=== PATIENT | male | born 1955 | race Caucasian/White ===

== ENCOUNTER 2024-03-15 09:00 | Outpatient (AMB) | payer OTHER, SELFPAY ==
--- NOTE | 2024-03-15 09:04 | A.OFFPC_ITS ---
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 Needs hernia looked at. 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 Psych: He is currently on trazodone 200 mg and hydroxyzine 50 mg. He does not feel like this is always effective. He does tolerate this well however. He is interested in trying something different. GI: He has Crohn's disease and is stable on Stelara. Follows with [facility]. Urology: Follows with urology for his elevated PSA and states everything was normal. He states that he would like to try Viagra for some erectile dysfunction. He has had issues with getting and maintaining an erection for the last couple years since his stoma surgery. He states he has not sure if it is mental or just age-related. [facility] Medical History (Updated 03/15/24 @ 10:01 by Melisa Zhang PA-C) Erectile dysfunction Incisional hernia of anterior abdominal wall without obstruction or gangrene Elevated PSA Crohn disease EMMANUEL on CPAP Insomnia Family History (Updated 03/15/24 @ 09:10 by Gerda Yadav CMA) Mother Alcoholism Father Alcoholism Sister Alcoholism Brother Alcoholism Other Substance use Social History (Updated 03/15/24 @ 09:09 by Gerda Yadav CMA) Housing: House Patient Tobacco Use Status: Former Tobacco user Cigarette Packs Per Day: 1 Years Smoked: 20, quit 45 years ago e-Cigarette/Vaping Use: Never Used Second Hand Smoke Exposure: No service: Yes Current occupational status: employed 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 1. Little interest or pleasure in doing things: not at all 2. Feeling down, depressed, or hopeless: not at all 3. Trouble falling or staying asleep, or sleeping too much: several days 4. Feeling tired or having little energy: several days 5. Poor appetite or overeating: not at all 6. Feeling bad about yourself - or that you are a failure or have let yourself or your family down: not at all 7. Trouble concentrating on things, such as reading the newspaper or watching television: not at all 8. Moving or speaking so slowly that other people could have noticed. Or the op posite - being so fidgety or restless that you have been moving around a lot more than usual: not at all 9. Thoughts that you would be better off or of hurting yourself in some way: not at all Total score: 2 Depression Screening Interpretation: Negative Depression Screening Done: Yes 49426 - PHQ-9 Billing: Yes Source: Developed by Drs. Bertin Farias, Rita Stewart, Mario Baca and colleagues, with an educational joao from [employer]. Thrive Questionnaire Date Thrive assessed: 03/15/24 I am a: Patient What is your living situation today?: I have a steady place to live Within the past 12 months, did the food you bought not last and you didn't have the money to get more?: Never true Within the past 12 months, did you worry whether your food would run out before you got money to buy more?: Never true Do you have trouble paying for medicines?: No Do you have trouble getting transportation to medical appointments?: No Do you have trouble paying your heating and electricity bill?: No Do you have trouble taking care of your child, family member or friend?: No Do you have trouble with day-to-day activities such as bathing, preparing meals, shopping, managing finances, etc.?: No Are you currently unemployed and looking for a job?: No Are you interested in more education?: No Please select the resources that you would like help with: None Currently or been in a relationship where the following occur: no concerns reported THRIVE Score: 0 AUDIT C Alcohol Use Questionnaire (AUDIT-C) 1. How often do you have a drink containing alcohol?: Never 3. How often do you have six or more drinks on one occasion?: Never Total Score: 0 MATA-7 AMB Questionnaire MATA-7 Date MATA - 7 assessed: 03/15/24 Feeling nervous, anxious, or on edge: 0 = Not at all Not being able to stop or control worryin = Not at all Worrying too much about different things: 0 = Not at all Trouble relaxin = Not at all Being so restless that it is hard to sit still: 0 = Not at all Becoming easily annoyed or irritable: 0 = Not at all Feeling afraid as if something awful might happen: 0 = Not at all Total MATA-7 score (0-4 normal; 5-9 mild; 10-14 moderate; 15-21 severe): 0 Source: Developed by Drs. Bertin Farias, Rita Stewart, Mario Baca and colleagues, with an educational joao from [employer]. MATA-7 Assessment Billing MATA-7 Assessment Tool: MATA-7 Assessment 26331 Physical exam (Primary Care) Vital Signs: Last Vital Signs Temp 98 F 03/15/24 09:15 Pulse 65 03/15/24 09:15 Resp 14 03/15/24 09:15 BP 124/60 03/15/24 09:15 Pulse Ox 98 03/15/24 09:15 Oxygen Delivery Method Room Air 03/15/24 09:15 BMI result Body Mass Index 29.8 Tobacco/Smoking Status: Tobacco use Status Tobacco use date assessed 03/15/24 03/15/24 09:12 Patient Tobacco Use Status Former Tobacco user 03/15/24 09:12 e-Cigarette/Vaping Use Never Used 03/15/24 09:12 PHQ-9: PHQ-9 Score PHQ-9: Total score 2 03/15/24 09:28 Depression Screening Interpretation: Negative Thrive Assessment: Date of Thrive Assessment Date Thrive assessed 03/15/24 03/15/24 09:28 Currently or been in a relationship where the following occur: no concerns reported Const Orientation/consciousness: patient oriented x3 HENMT Ears: hearing grossly normal bilaterally Neck Thyroid: Thyroid normal Lymphatic: no lymphadenopathy noted Resp Auscultation: clear to auscultation bilaterally Cardio Rate: regular rate Rhythm: regular rhythm Heart sounds: S1 normal heart sound present and S2 normal heart sound present GI Inspection: Yes normal to inspection Palpation (GI): Soft to palpation and Other GI palpation findings present (nontender, no cva tenderness) Auscultation: normoactive bowel sounds Rectal Exam - Male: Yes deferred Skin General skin exam: no rashes or lesions noted Neuro General: patient oriented x3, gait normal and no focal motor deficits Assessment and Plan Assessment & Plan (1) Insomnia: Code(s): G47.00 - Insomnia, unspecified Plan: We will DC the hydroxyzine and trazodone. We will start patient on Ambien. We spent extensive time discussing the risks and benefits and adverse effects of this medication. He is aware that this is a controlled substance and can be habit forming. He we will avoid any alcohol use while taking this medication or driving. (2) EMMANUEL on CPAP: Code(s): G47.33 - Obstructive sleep apnea (adult) (pediatric) (3) Crohn disease: Code(s): K50.90 - Crohn's disease, unspecified, without complications Plan: Continue with GI. (4) Elevated PSA: Code(s): R97.20 - Elevated prostate specific antigen [PSA] Plan: We will monitor in 6 months. (5) Incisional hernia of anterior abdominal wall without obstruction or gangrene: Code(s): K43.2 - Incisional hernia without obstruction or gangrene Plan: Referral to General surgery. (6) Erectile dysfunction: Code(s): N52.9 - Male erectile dysfunction, unspecified Qualifiers: Erectile dysfunction type: unspecified Qualified Code(s): N52.9 - Male erectile dysfunction, unspecified Plan: will try viagra however discuss that this could also be related to trazodone as it started around the same time of this medication. Orders: Orders Comprehensive [place]. Panel Fast Today G47.00 - Insomnia, unspecified, G47.33 - Obstructive sleep apnea (adult) (pediatric), K50.90 - Crohn's disease, unspecified, without complications, R97.20 - Elevated prostate specific antigen [PSA] Lipid Panel Today G47.00 - Insomnia, unspecified, G47.33 - Obstructive sleep apnea (adult) (pediatric), K50.90 - Crohn's disease, unspecified, without complications, R97.20 - Elevated prostate specific antigen [PSA] PSA, Ultra Sensitive Today G47.00 - Insomnia, unspecified, G47.33 - Obstructive sleep apnea (adult) (pediatric), K50.90 - Crohn's disease, unspecified, without complications, R06.09 - Other forms of dyspnea, R97.20 - Elevated prostate specific antigen [PSA] Complete Blood Count Auto Diff Today G47.00 - Insomnia, unspecified, G47.33 - Obstructive sleep apnea (adult) (pediatric), K50.90 - Crohn's disease, unspecified, without complications, R97.20 - Elevated prostate specific antigen [PSA] TSH reflex Free T4 Today G47.00 - Insomnia, unspecified, G47.33 - Obstructive sleep apnea (adult) (pediatric), K50.90 - Crohn's disease, unspecified, without complications, R97.20 - Elevated prostate specific antigen [PSA] Referrals General Surgery Referral K43.2 - Incisional hernia without obstruction or gangrene Medications: New zolpidem (Ambien) 5 mg PO BEDTIME 30 tabs 0RF 30 days sildenafil (Viagra) administer 30 minutes to 4 hours before activity 50 mg PO DAILY PRN 30 tabs 0RF sexual activity Coding Level of Care Code Est Pt Level 4 (23445) Complex EM visit Add On G2211 Diagnoses Insomnia G47.00 EMMANUEL on CPAP G47.33 Crohn disease K50.90 Elevated PSA R97.20 Incisional hernia of anterior abdominal wall without obstruction or gangrene K43.2 Erectile dysfunction, unspecified erectile dysfunction type N52.9 Erectile dysfunction type: unspecified Additional Codes MATA-7 Assessment Billing - MATA-7 Assessment Tool: MATA-7 Assessment 83639 ([id number])
[2024-03-15 09:15] VITALS: BP 124/60; PULSE 65; RESP 14; TEMP 36.6; O2SAT 98; BMI 29.8
== END 2024-03-15 09:58 | disposition home or self-care (01) ==
PROVIDERS: PCP Physician Assistant; Visit Provider Physician Assistant
DX: G47.00 Insomnia, unspecified (principal); G47.33 Obstructive sleep apnea (adult) (pediatric); K50.90 Crohn's disease, unspecified, without complications; R97.20 Elevated prostate specific antigen [PSA]; K43.2 Incisional hernia without obstruction or gangrene; N52.9 Male erectile dysfunction, unspecified
CPT/HCPCS: 99214

== ENCOUNTER 2024-04-12 08:34 | Outpatient (AMB) | payer OTHER, SELFPAY ==
--- NOTE | 2024-04-12 08:49 | A.OFFPC_ITS ---
Vital Signs 04/12/24 08:50 Height 5 ft 7.13 in Weight 189 lb BMI 29.5 BP 108/66 Blood Pressure Location Rt brachial Position Sitting Pulse 77 Pulse Source Pulse Oximeter Pulse Oximetry (%) 95 Oxygen Delivery Method Room Air Intake Visit Reasons: follow up medications Intake Note: Medication follow up Allergies No Known Allergies Allergy (Verified 04/12/24 08:49) Medication List - Last Reconciled 04/12/24 by Melisa Zhang PA-C sildenafil (Viagra) 50 mg PO DAILY PRN ustekinumab (Stelara) mg subcut Tobacco use date assessed: 03/15/24 Dental Screening Dental Screen Date: 03/15/24 HPI follow up medications HPI Details Patient is a 68-year-old male with a significant past medical history of Crohn's disease, obstructive sleep apnea, elevated PSA and insomnia presenting today for a follow up. Psych: He was recently started on Ambien after trying trazodone, amitriptyline and hydroxyzine without success. He trialed these medications for years. He has followed with sleep medicine who told him they do not prescribe. he has no adverse effects to the ambien but finds it minimally effective. He has tried 10 mg a few times which is somewhat better but not as much as he would like. He states he tries to go to bed for 9 and doesnt fall asleep until 10-10:30 and is up 2-4 AM. GI: He has Crohn's disease and is stable on Stelara. Follows with [facility]. Urology: Follows with urology for his elevated PSA and states everything was normal. He states that he would like to try Viagra for some erectile dysfunction. He has had issues with getting and maintaining an erection for the last couple years since his stoma surgery. He states he has not sure if it is mental or just age-related. Pulm: follows with sleep medicine in [place] for his emmanuel. wants to go somewhere different because he states they won't give him a new machine. [facility] Medical History (Updated 04/12/24 @ 09:17 by Melisa Zhang PA-C) Erectile dysfunction Incisional hernia of anterior abdominal wall without obstruction or gangrene Elevated PSA Crohn disease EMMANUEL on CPAP Insomnia Family History (Updated 03/15/24 @ 09:10 by Gerda Yadav CMA) Mother Alcoholism Father Alcoholism Sister Alcoholism Brother Alcoholism Other Substance use Social History (Updated 03/15/24 @ 09:09 by Gerda Yadav CMA) Housing: House Patient Tobacco Use Status: Former Tobacco user Cigarette Packs Per Day: 1 Years Smoked: 20, quit 45 years ago e-Cigarette/Vaping Use: Never Used Second Hand Smoke Exposure: No service: Yes Current occupational status: employed 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 Bertin Farias, Rita Stewart, Mario Baca and colleagues, with an educational joao from [employer]. Physical exam (Primary Care) Vital Signs: Last Vital Signs Pulse 77 04/12/24 08:50 BP 108/66 04/12/24 08:50 Pulse Ox 95 04/12/24 08:50 Oxygen Delivery Method Room Air 04/12/24 08:50 BMI result Body Mass Index 29.5 Tobacco/Smoking Status: Tobacco use Status Tobacco use date assessed 03/15/24 04/12/24 08:52 Patient Tobacco Use Status Former Tobacco user 04/12/24 08:52 e-Cigarette/Vaping Use Never Used 04/12/24 08:52 Thrive Assessment: Date of Thrive Assessment Date Thrive assessed 03/15/24 04/12/24 08:52 Const Orientation/consciousness: patient oriented x3 HENMT Ears: hearing grossly normal bilaterally Neck Thyroid: Thyroid normal Lymphatic: no lymphadenopathy noted Resp Auscultation: clear to auscultation bilaterally Cardio Rate: regular rate Rhythm: regular rhythm Heart sounds: S1 normal heart sound present and S2 normal heart sound present GI Inspection: Yes normal to inspection Palpation (GI): Soft to palpation and Other GI palpation findings present (nontender, no cva tenderness) Auscultation: normoactive bowel sounds Rectal Exam - Male: Yes deferred Skin General skin exam: no rashes or lesions noted Neuro General: patient oriented x3, gait normal and no focal motor deficits Assessment and Plan Assessment & Plan (1) Insomnia: Code(s): G47.00 - Insomnia, unspecified Qualifiers: Insomnia type: unspecified Qualified Code(s): G47.00 - Insomnia, unspecified Plan: He follows with good sleep hygiene. I will try Ambien 12.5 mg. We will follow up in 3-4 weeks. Sooner if needed. Risks of this medication reviewed at length. (2) Erectile dysfunction: Code(s): N52.9 - Male erectile dysfunction, unspecified Qualifiers: Erectile dysfunction type: unspecified Qualified Code(s): N52.9 - Male erectile dysfunction, unspecified Plan: Well-controlled with Viagra as needed (3) Elevated PSA: Code(s): R97.20 - Elevated prostate specific antigen [PSA] Plan: Reminded him to complete labs. Orders: Referrals Sleep Medicine Referral G47.00 - Insomnia, unspecified, G47.33 - Obstructive sleep apnea (adult) (pediatric) Medications: New zolpidem ER (Ambien CR) 12.5 mg PO .nightly 30 days 30 tabs 0RF Coding Level of Care Code Est Pt Level 4 (91301) Complex EM visit Add On G2211 Diagnoses Insomnia, unspecified type G47.00 Insomnia type: unspecified Erectile dysfunction, unspecified erectile dysfunction type N52.9 Erectile dysfunction type: unspecified Elevated PSA R97.20
[2024-04-12 08:50] VITALS: BP 108/66; PULSE 77; O2SAT 95; BMI 29.5
== END 2024-04-12 09:11 | disposition home or self-care (01) ==
PROVIDERS: PCP Physician Assistant; Visit Provider Physician Assistant
DX: G47.00 Insomnia, unspecified (principal); N52.9 Male erectile dysfunction, unspecified; R97.20 Elevated prostate specific antigen [PSA]
CPT/HCPCS: 99214

== ENCOUNTER 2024-05-11 10:13 | Outpatient (AMB) | payer OTHER, SELFPAY ==
--- NOTE | 2024-05-11 10:18 | MHC.PC.OV ---
Vital Signs 05/11/24 10:19 Height 5 ft 7.13 in Weight 189 lb 4 oz BMI 29.5 BP 128/64 Blood Pressure Location Lt brachial Position Sitting Respiration 14 Pulse 64 Pulse Source Pulse Oximeter Pulse Oximetry (%) 97 Oxygen Delivery Method Room Air Intake Visit Reasons: follow up medications Intake Note: Follow up Allergies No Known Allergies Allergy (Verified 05/11/24 10:18) Medication List - Last Reconciled 05/11/24 by Melisa Zhang PA-C sildenafil (Viagra) 50 mg PO DAILY PRN ustekinumab (Stelara) mg subcut zolpidem ER (Ambien CR) 12.5 mg PO .nightly 30 days Tobacco use date assessed: 03/15/24 Dental Screening Dental Screen Date: 03/15/24 HPI follow up medications HPI Details Patient is a 68-year-old male with a significant past medical history of Crohn's disease, obstructive sleep apnea, elevated PSA and insomnia presenting today for a follow up. Psych: He was recently started on Ambien after trying trazodone, amitriptyline and hydroxyzine without success. He trialed these medications for years. He has followed with sleep medicine who told him they do not prescribe. he has no adverse effects to the ambien and states this current dose is very effective he feels well with it. GI: He has Crohn's disease and is stable on Stelara. Follows with [facility]. Urology: Follows with urology for his elevated PSA and states everything was normal. He is on viagra for ED. Pulm: follows with sleep medicine in [place] for his emmanuel but wanted to switch to [facility] and is booked in September. [facility] Medical History (Updated 05/11/24 @ 10:29 by Melisa Zhang PA-C) Erectile dysfunction Incisional hernia of anterior abdominal wall without obstruction or gangrene Elevated PSA Crohn disease EMMANUEL on CPAP Insomnia Family History (Updated 03/15/24 @ 09:10 by Gerda Yadav CMA) Mother Alcoholism Father Alcoholism Sister Alcoholism Brother Alcoholism Other Substance use Social History (Updated 03/15/24 @ 09:09 by Gerda Yadav CMA) Housing: House Patient Tobacco Use Status: Former Tobacco user Cigarette Packs Per Day: 1 Years Smoked: 20, quit 45 years ago e-Cigarette/Vaping Use: Never Used Second Hand Smoke Exposure: No service: Yes Current occupational status: employed 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 Bertin Farias, Rita Stewart, Mario Baca and colleagues, with an educational joao from [employer]. Physical exam (Primary Care) Vital Signs: Last Vital Signs Pulse 64 05/11/24 10:19 Resp 14 05/11/24 10:19 BP 128/64 05/11/24 10:19 Pulse Ox 97 05/11/24 10:19 Oxygen Delivery Method Room Air 05/11/24 10:19 BMI result Body Mass Index 29.5 Tobacco/Smoking Status: Tobacco use Status Tobacco use date assessed 03/15/24 05/11/24 10:21 Patient Tobacco Use Status Former Tobacco user 05/11/24 10:21 e-Cigarette/Vaping Use Never Used 05/11/24 10:21 Thrive Assessment: Date of Thrive Assessment Date Thrive assessed 03/15/24 05/11/24 10:21 Const Orientation/consciousness: patient oriented x3 HENMT Ears: hearing grossly normal bilaterally Neck Thyroid: Thyroid normal Lymphatic: no lymphadenopathy noted Resp Auscultation: clear to auscultation bilaterally Cardio Rate: regular rate Rhythm: regular rhythm Heart sounds: S1 normal heart sound present and S2 normal heart sound present GI Inspection: Yes normal to inspection Palpation (GI): Soft to palpation and Other GI palpation findings present (nontender, no cva tenderness) Auscultation: normoactive bowel sounds Rectal Exam - Male: Yes deferred Skin Other: There are 2, small 3 mm x 3 mm, slightly raised, erythematous and flaky lesions noted on the scalp. Neuro General: patient oriented x3, gait normal and no focal motor deficits Assessment and Plan Assessment & Plan (1) Insomnia: Code(s): G47.00 - Insomnia, unspecified Qualifiers: Insomnia type: unspecified Qualified Code(s): G47.00 - Insomnia, unspecified Plan: CSC signed today. advised 4 month follow up. continue ambien. (2) Skin lesion of scalp: Code(s): L98.9 - Disorder of the skin and subcutaneous tissue, unspecified Plan: referral to [facility] for skin check and eval Orders: Referrals Dermatology Referral L98.9 - Disorder of the skin and subcutaneous tissue, unspecified Coding Level of Care Code Est Pt Level 4 (31200) Diagnoses Insomnia, unspecified type G47.00 Insomnia type: unspecified Skin lesion of scalp L98.9
[2024-05-11 10:19] VITALS: BP 128/64; PULSE 64; RESP 14; O2SAT 97; BMI 29.5
== END 2024-05-11 10:43 | disposition home or self-care (01) ==
PROVIDERS: PCP Physician Assistant; Visit Provider Physician Assistant
DX: G47.00 Insomnia, unspecified (principal); L98.9 Disorder of the skin and subcutaneous tissue, unspecified
CPT/HCPCS: 99214

== ENCOUNTER 2024-06-15 10:43 | Outpatient (AMB) | payer OTHER, SELFPAY ==
--- NOTE | 2024-06-15 10:49 | MHC.PC.OV ---
Vital Signs 06/15/24 10:52 Weight 193 lb 8 oz BP 120/62 Blood Pressure Location Lt brachial Position Sitting Respiration 14 Pulse 66 Pulse Source Pulse Oximeter Pulse Oximetry (%) 97 Oxygen Delivery Method Room Air Intake Visit Reasons: Ringing in ears Intake Note: Ringing in the ears couple months Branch Controller Required: No Allergies No Known Allergies Allergy (Verified 06/15/24 10:50) Tobacco use date assessed: 03/15/24 Dental Screening Dental Screen Date: 03/15/24 HPI Ringing in ears HPI Details Patient is a 68-year-old male who presents today with complaints of ringing in his ears. His symptoms started a few years ago and have gradually worsened. No decreased hearing or pain. It does not appear to be pulsatile. He denies any headache, vision changes or congestion. He would like to consult with ENT. Crohn's is currently stable and well controlled with Stelara. Doing well with the Ambien. Getting about 7 hours of sleep at night. No adverse effects. [facility] Medical History (Updated 06/15/24 @ 11:36 by Melisa Zhang PA-C) Erectile dysfunction Incisional hernia of anterior abdominal wall without obstruction or gangrene Elevated PSA Crohn disease EMMANUEL on CPAP Insomnia Family History (Updated 03/15/24 @ 09:10 by Gerda Yadav CMA) Mother Alcoholism Father Alcoholism Sister Alcoholism Brother Alcoholism Other Substance use Social History (Updated 03/15/24 @ 09:09 by Gerda Yadav CMA) Housing: House Patient Tobacco Use Status: Former Tobacco user Cigarette Packs Per Day: 1 Years Smoked: 20, quit 45 years ago e-Cigarette/Vaping Use: Never Used Second Hand Smoke Exposure: No service: Yes Current occupational status: employed 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 1. Little interest or pleasure in doing things: not at all 2. Feeling down, depressed, or hopeless: not at all 3. Trouble falling or staying asleep, or sleeping too much: not at all 4. Feeling tired or having little energy: several days 5. Poor appetite or overeating: not at all 6. Feeling bad about yourself - or that you are a failure or have let yourself or your family down: not at all 7. Trouble concentrating on things, such as reading the newspaper or watching television: not at all 8. Moving or speaking so slowly that other people could have noticed. Or the opposite - being so fidgety or restless that you have been moving around a lot more than usual: not at all 9. Thoughts that you would be better off or of hurting yourself in some way: not at all Total score: 1 Source: Developed by Drs. Bertin Farias, Rita Stewart, Mario Baca and colleagues, with an educational joao from [employer]. Thrive Questionnaire Date Thrive assessed: 03/15/24 I am a: Patient What is your living situation today?: I have a steady place to live Within the past 12 months, did the food you bought not last and you didn't have the money to get more?: I choose not to answer this question Within the past 12 months, did you worry whether your food would run out before you got money to buy more?: I choose not to answer this question Do you have trouble paying for medicines?: I choose not to answer this question Do you have trouble getting transportation to medical appointments?: I choose not to answer this question Do you have trouble paying your heating and electricity bill?: I choose not to answer this question Do you have trouble taking care of your child, family member or friend?: I choose not to answer this question Do you have trouble with day-to-day activities such as bathing, preparing meals, shopping, managing finances, etc.?: I choose not to answer this question Are you currently unemployed and looking for a job?: No Are you interested in more education?: No Please select the resources that you would like help with: None Currently or been in a relationship where the following occur: I choose not to answer THRIVE Score: 0 AUDIT C Alcohol Use Questionnaire (AUDIT-C) 1. How often do you have a drink containing alcohol?: Never Total Score: 0 MATA-7 AMB Questionnaire MATA-7 Date MATA - 7 assessed: 03/15/24 Feeling nervous, anxious, or on edge: 0 = Not at all Not being able to stop or control worryin = Not at all Worrying too much about different things: 0 = Not at all Trouble relaxin = Not at all Being so restless that it is hard to sit still: 0 = Not at all Becoming easily annoyed or irritable: 0 = Not at all Feeling afraid as if something awful might happen: 0 = Not at all Total MATA-7 score (0-4 normal; 5-9 mild; 10-14 moderate; 15-21 severe): 0 Source: Developed by Drs. Bertin Farias, Rita Stewart, Mario Baca and colleagues, with an educational joao from [employer]. Physical exam (Primary Care) Vital Signs: Last Vital Signs Pulse 66 06/15/24 10:52 Resp 14 06/15/24 10:52 BP 120/62 06/15/24 10:52 Pulse Ox 97 06/15/24 10:52 Oxygen Delivery Method Room Air 06/15/24 10:52 Tobacco/Smoking Status: Tobacco use Status Tobacco use date assessed 03/15/24 06/15/24 10:55 Patient Tobacco Use Status Former Tobacco user 06/15/24 10:55 e-Cigarette/Vaping Use Never Used 06/15/24 10:55 PHQ-9: PHQ-9 Score PHQ-9: Total score 1 06/15/24 11:32 Thrive Assessment: Date of Thrive Assessment Date Thrive assessed 03/15/24 06/15/24 10:55 Currently or been in a relationship where the following occur: I choose not to answer Const Orientation/consciousness: patient oriented x3 HENMT Ears: hearing grossly normal bilaterally and TM's normal bilaterally General nose exam: Normal nasal mucous membranes and turbinates present Face and sinus: Yes sinuses nontender Neck Thyroid: Thyroid normal Lymphatic: no lymphadenopathy noted Resp Auscultation: clear to auscultation bilaterally Cardio Rate: regular rate Rhythm: regular rhythm Heart sounds: S1 normal heart sound present and S2 normal heart sound present GI Inspection: Yes normal to inspection Palpation (GI): Soft to palpation and Other GI palpation findings present (nontender, no cva tenderness) Auscultation: normoactive bowel sounds Rectal Exam - Male: Yes deferred Skin General skin exam: no rashes or lesions noted Neuro General: patient oriented x3, gait normal and no focal motor deficits Assessment and Plan Assessment & Plan (1) Bilateral tinnitus: Code(s): H93.13 - Tinnitus, bilateral Plan: Referral to ENT placed. Orders: Referrals Ear/Nose/Throat Referral H93.13 - Tinnitus, bilateral Coding Level of Care Code Est Pt Level 3 (18034) Diagnoses Bilateral tinnitus H93.13
[2024-06-15 10:52] VITALS: BP 120/62; PULSE 66; RESP 14; O2SAT 97
== END 2024-06-15 13:03 | disposition home or self-care (01) ==
PROVIDERS: PCP Physician Assistant; Visit Provider Physician Assistant
DX: H93.13 Tinnitus, bilateral (principal)

== ENCOUNTER → 2024-06-15 10:43 | Outpatient (BNVA) | payer OTHER, SELFPAY | PROVIDERS: PCP Physician Assistant; Visit Provider Physician Assistant | DX: H93.13 Tinnitus, bilateral (principal) | CPT/HCPCS: 96127 ==

== ENCOUNTER 2024-09-14 08:13 | Outpatient (AMB) | payer OTHER, SELFPAY ==
--- NOTE | 2024-09-14 08:18 | MHC.PC.OV ---
Vital Signs 09/14/24 08:29 BP 116/64 Blood Pressure Location Lt brachial Position Sitting Pulse 70 Pulse Source Pulse Oximeter Pulse Oximetry (%) 99 Oxygen Delivery Method Room Air Intake Visit Reasons: insomnia Intake Note: Insomnia, difficulty breathing, chest pain, shoulder pain since last week of June when he was told he had Pneumonia. Had xray at [facility]. Saw a provider at [facility] 3 weeks later and they prescribed a Zpack and prednisone. No follow up chest xray. Film Numberer Required: No Allergies No Known Allergies Allergy (Verified 09/14/24 08:18) Medication List - Last Reconciled 09/14/24 by Melisa Zhang PA-C hydroxyzine HCl 50 mg PO BEDTIME ustekinumab (Stelara) mg subcut zolpidem ER (Ambien CR) 12.5 mg PO .nightly 30 days Tobacco use date assessed: 03/15/24 Dental Screening Dental Screen Date: 03/15/24 HPI insomnia HPI Details Patient is a 68-year-old male with a significant past medical history of Crohn's disease and insomnia who presents today with complaints of feeling short of breath and having chest pain. He states his symptoms started at the end of June. He went to an urgent care and [place] and had a chest x-ray which she was told that the left side of the lungs were a little hazy and possibly consistent with pneumonia. He was put on amoxicillin which she did not tolerate. He states he was only able to take 1 day and could no longer tolerate it. He then went to [facility] to be evaluated and states that he had a physical exam and was placed on prednisone, which helped his GI symptoms, and azithromycin. He did feel as if he got better from the Z-Valeriano and prednisone but maybe not fully better. He states that when he exerts himself he feels short of breath. He would normally be able to carry in a couple of bags of pellets for his stove but has to do 1 bag at a time and take frequent breaks. He does not really feels sick but he is concerned because of the shortness a breath and at times he will get a chest pressure that feels like something sitting on the center of his chest. He states sometimes also when he takes a deep breath he will feel chest pain. It is not all the time but it does happen. He last experienced chest pain yesterday. He does have chest pain with inspiration today on exam but states it feels different than the chest pressure that will last for a few minutes and occur multiple times. He has never had a cardiac workup. No fevers. He has felt a little chilled yesterday but feels better today. No sinus pain or pressure. No cough or phlegm. He has noted intermittent wheezing but no wheezing for the last few days. No history of asthma. No leg pain or swelling. No recent travel. Insomnia currently being managed with zolpidem. [facility] Medical History (Updated 09/14/24 @ 10:41 by Melisa Zhang PA-C) Erectile dysfunction Incisional hernia of anterior abdominal wall without obstruction or gangrene Elevated PSA Crohn disease EMMANUEL on CPAP Insomnia Family History (Updated 03/15/24 @ 09:10 by Gerda Yadav CMA) Mother Alcoholism Father Alcoholism Sister Alcoholism Brother Alcoholism Other Substance use Social History (Updated 03/15/24 @ 09:09 by Gerda Yadav CMA) Housing: House Patient Tobacco Use Status: Former Tobacco user Cigarette Packs Per Day: 1 Years Smoked: 20, quit 45 years ago e-Cigarette/Vaping Use: Never Used Second Hand Smoke Exposure: No service: Yes Current occupational status: employed 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 Current occupational exposures/hazards: No Cognitive needs: No Hearing needs: No Vision needs: No Questionnaire Thrive Questionnaire Date Thrive assessed: 06/15/24 I am a: Patient What is your living situation today?: I have a steady place to live Within the past 12 months, did the food you bought not last and you didn't have the money to get more?: I choose not to answer this question Within the past 12 months, did you worry whether your food would run out before you got money to buy more?: I choose not to answer this question Do you have trouble paying for medicines?: I choose not to answer this question Do you have trouble getting transportation to medical appointments?: I choose not to answer this question Do you have trouble paying your heating and electricity bill?: I choose not to answer this question Do you have trouble taking care of your child, family member or friend?: I choose not to answer this question Do you have trouble with day-to-day activities such as bathing, preparing meals, shopping, managing finances, etc.?: I choose not to answer this question Are you currently unemployed and looking for a job?: No Are you interested in more education?: No Please select the resources that you would like help with: None Currently or been in a relationship where the following occur: I choose not to answer THRIVE Score: 0 MATA-7 AMB Questionnaire MATA-7 Date MATA - 7 assessed: 03/15/24 Source: Developed by Drs. Bertin Farias, Rita Stewart, Mario Baca and colleagues, with an educational joao from [employer]. Physical exam (Primary Care) Vital Signs: Last Vital Signs Pulse 70 09/14/24 08:29 BP 116/64 09/14/24 08:29 Pulse Ox 99 09/14/24 08:29 Oxygen Delivery Method Room Air 09/14/24 08:29 Tobacco/Smoking Status: Tobacco use Status Tobacco use date assessed 03/15/24 09/14/24 08:19 Patient Tobacco Use Status Former Tobacco user 09/14/24 08:19 e-Cigarette/Vaping Use Never Used 09/14/24 08:19 Thrive Assessment: Date of Thrive Assessment Date Thrive assessed 06/15/24 09/14/24 08:19 Currently or been in a relationship where the following occur: I choose not to answer Const Orientation/consciousness: patient oriented x3 HENMT Ears: hearing grossly normal bilaterally Neck Thyroid: Thyroid normal Lymphatic: no lymphadenopathy noted Resp Auscultation: clear to auscultation bilaterally Cardio Rate: regular rate Rhythm: regular rhythm Heart sounds: S1 normal heart sound present and S2 normal heart sound present GI Inspection: Yes normal to inspection Palpation (GI): Soft to palpation and Other GI palpation findings present (nontender, no cva tenderness) Auscultation: normoactive bowel sounds Skin General skin exam: no rashes or lesions noted Neuro General: patient oriented x3, gait normal and no focal motor deficits Extrem General: Yes normal to inspection and Yes no clubbing, cyanosis or edema Office Procedures EKG Details: Normal sinus rhythm at a rate of 66 beats per minute with nonspecific STT wave abnormalities. No prior study to compare. EKG interpreted by myself and Dr. Valera. [id number], Complete Coding Level of Care Code Est Pt Level 4 (43954) Complex EM visit Add On G2211 Diagnoses Chest pain, unspecified type R07.9 Chest pain type: unspecified TAVERAS (dyspnea on exertion) R06.09 CPT Codes EKG - CPT: 45544-[id number], Complete ([id number]) Assessment & Plan Assessment & Plan (1) Chest pain: Code(s): R07.9 - Chest pain, unspecified Category: Medical Qualifiers: Chest pain type: unspecified Qualified Code(s): R07.9 - Chest pain, unspecified Plan: Chest x-ray today. Ordered as stat although lungs sound clear on exam. We will follow up pending test results. Labs including CBC, CMP, BNP, and D-dimer ordered. Ambulatory O2 sat is 96% on room air without tachycardia. Stress test and echo ordered. (2) TAVERAS (dyspnea on exertion): Code(s): R06.09 - Other forms of dyspnea Category: Medical Plan: As above. We will follow up pending test results. We discussed signs and symptoms that would require emergent medical treatment. Patient understands and agrees with this plan. Orders: Orders AMB EKG-In Office Today R06.09 - Other forms of dyspnea XR chest 2V Today R06.09 - Other forms of dyspnea, R07.9 - Chest pain, unspecified CA echo transthoracic complete Today R06.09 - Other forms of dyspnea, R07.9 - Chest pain, unspecified CA stress test Today R06.09 - Other forms of dyspnea, R07.9 - Chest pain, unspecified B Type Natriuretic Peptide Today R06.09 - Other forms of dyspnea, R07.9 - Chest pain, unspecified Comprehensive Met. Panel Today R06.09 - Other forms of dyspnea, R07.9 - Chest pain, unspecified D Dimer High Sensitivity Today R06.09 - Other forms of dyspnea, R07.9 - Chest pain, unspecified
[2024-09-14 08:29] VITALS: BP 116/64; PULSE 70; O2SAT 99
== END 2024-09-14 11:18 | disposition home or self-care (01) ==
PROVIDERS: PCP Physician Assistant; Visit Provider Physician Assistant
DX: R07.9 Chest pain, unspecified (principal); R06.09 Other forms of dyspnea

== ENCOUNTER → 2024-09-14 08:13 | Outpatient (BNVA) | payer OTHER, SELFPAY | PROVIDERS: PCP Physician Assistant; Visit Provider Physician Assistant | DX: R07.9 Chest pain, unspecified (principal); R06.09 Other forms of dyspnea | CPT/HCPCS: 93005 ==

== ENCOUNTER 2024-09-18 09:50 | Outpatient (REF) | payer OTHER, SELFPAY ==
[2024-09-18 11:51] LABS: D Dimer High Sensitivity < 150 NG/ML
[2024-09-18 11:54] LABS: B Type Natriuretic Peptide 73 pg/mL (<100)
[2024-09-18 12:02] LABS: Alanine Aminotransferase 45 U/L (0-40); Albumin Level 4.2 g/dL (3.5-5.0); Alkaline Phosphatase 73 U/L (39-117); Anion Gap 8 (12-20); Aspartate Amino Transferase 24 U/L (5-37); Bilirubin Total 0.6 mg/dL (0.0-1.0); Blood Urea Nitrogen 12 mg/dL (9-16); Carbon Dioxide 29 mmol/L (22-29); Chloride 108 mmol/L (96-108); Estimated Glomerular Filt Rate > 60; Glucose Random 219 mg/dL (60-115); Sodium 141 mmol/L (135-145); Total Protein 6.9 g/dL (6.5-8.0)
== END 2024-09-18 09:51 | disposition home or self-care (01) ==
LOC: HO.WFDLDS 09:50
PROVIDERS: Visit Provider Physician Assistant
DX: R07.9 Chest pain, unspecified (principal); R06.09 Other forms of dyspnea
CPT/HCPCS: 36415; 80053; 83880; 85379

== ENCOUNTER → 2024-10-06 07:43 | Outpatient (REF) | payer OTHER, SELFPAY ==
--- NOTE | 2024-10-06 07:55 | CA_ITS ---
Transthoracic Echocardiogram Patient (Last, First, Middle): Suraj Loomis, Gender: Male Date of : 1955 Age: 68 Procedure Date: 10/06/2024 Procedure Type: Transthoracic Echocardiogram Location: OP Height: 172.72 cm Weight: 86.18 kg BSA: 2.00 m2 Heart Rate: 62 bpm BP: 116 / 64 mmHg Manager Safe: SB Referring MD: Melisa Zhang PA-C Symptoms: R07.9 - Chest pain, unspecified Study Quality: Adequate ECG Rhythm: Sinus Conclusions: - The left ventricular systolic function is normal. The calculated ejection fraction is 61% by biplane method. - No obvious valvular pathology seen on this study. Findings Left Ventricle Normal left ventricular cavity size. There is normal left ventricular wall thickness. The left ventricular systolic function is normal. The calculated ejection fraction is 61% by biplane method. There is no evidence of regional wall motion abnormalities. Diastolic function is normal for age. Right Ventricle Normal right ventricular cavity size. There is low normal right ventricular systolic function. Atria Both atria are normal in size. Aortic Valve There is a normal trileaflet aortic valve. There is no aortic valve stenosis. There is no aortic valve regurgitation. Mitral Valve The mitral valve appears normal. There is no mitral valve regurgitation. There is no mitral valve stenosis. Pulmonic Valve The pulmonic valve is likely normal. Tricuspid Valve There is mild tricuspid valve regurgitation. There is no evidence of pulmonary hypertension. Great Vessels The asc aorta and aortic arch are normal in size. Venous The inferior vena cava was not well visualized. Pericardium/Pleural There is no evidence of pericardial effusion. Prior Study Comparison No prior study available for comparison. Recommendations, Care & Conclusions No obvious valvular pathology seen on this study. Measurements 2D Linear Measurements IVSd: 0.99 0.6-0.9/0.6-1.0 cm LVIDd: 4.55 3.9-5.3/4.2-5.9 cm LVIDd Index: 2.28 2.4-3.2/2.2-3.1 cm/m2 LVIDs: 2.78 2.0-3.6 cm LA Diam: 4.00 2.7-3.8/3.0-4.0 cm LAIDs Index: 2.00 1.5-2.3 cm/m2 LVOT Diam: 2.20 3.0+(-)1.3 cm 2D Systolic Function EF 4C: 58.20 >55% EF 2C: 62.90 >55% EF BiP: 61.30 >55% Mitral Valve MV Pk E: 0.77 MV PK A: 0.65 MV Decel Time: 244.00 E/A: 1.20 E'Lateral: 7.83 E'Medial: 7.51 E/E' Med: 10.20 E/E' Lat: 9.80 PHT: 71.00 MVA PHT: 3.10 Decel [place]: 3.15 Aortic Valve AoV Pk Sam: 1.08 AoV Pk Grad: 5.00 MATT: 3.35 LVOT LVOT Pk Sam: 0.99 LVOT Mn Sam: 0.67 LVOT VTI: 0.22 LVOT Pk Grad: 4.00 LVOT Mn Grad: 2.00 LVOT Diam: 2.20 LVOT Area: 3.80 Diastolic Function MV Pk E: 0.77 MV Pk A: 0.65 E/A: 1.20 E'Medial: 7.51 E/E' Med: 10.20 E' Laterial: 7.83 E/E' Lat: 9.80 Right Ventricle TAPSE (mm): 18.90 TVS' Sam: 10.10 Tricuspid Valve TR Pk Sma: 2.31 TR Pk Grad: 21.00 RA Press: 3.00 RVSP: 24.00 Great Vessels Aorta Sinus of Valsalva: 3.60 2.0-3.5 cm Ao Asc: 3.00 2.1-3.4 cm Ao Arch: 2.90 Pulmonary Veins Pulm Vein S/D 1.10 Pulmonary Valve PV Pk Sam: 0.79 Peak PV Grad: 3.00 Updated in Other Vendor System with Status of Final Papa Pimentel MD electronically signed on 10/07/2024 2:23:56 PM with status of Final
--- NOTE | 2024-10-06 07:55 | CA_ITS ---
Acquisition Time: 2024-10-06 08:58:27 Total Exercise Time: 00:06:19 Test Indications: cp, dyspnea Medications: Protocol: ABDI Max HR: 137 BPM 89% of Pred: 153 BPM Max BP: 150/80 mmHG Max Work Load: 7.4 METS Exercise Stress Test with exercise 6 mins 19 secs of Abdi Protocol, achieving 89% MPHR, with reports of moderate SOB, no chest discomfort, with frequent isolated PVCs, with normotensive response to exercise. Without EKG changes meeting criteria for ischemia. In recovery, breathing returned to baseline. Test reviewed with Dr. Pimentel. Referred By: Melisa Zhang Electronically Signed By: Yo Yao
== END ==
LOC: HO.CARD 07:43
PROVIDERS: PCP Physician Assistant; Visit Provider Physician Assistant
DX: R07.9 Chest pain, unspecified (principal); R06.09 Other forms of dyspnea
CPT/HCPCS: 93017; 93306

== ENCOUNTER → 2024-10-06 07:55 | Outpatient (BNV) | payer OTHER, SELFPAY | PROVIDERS: PCP Physician Assistant | DX: R06.02 Shortness of breath (principal); I49.3 Ventricular premature depolarization | CPT/HCPCS: 93016; 93018; 93320; 93325; 93350 ==

== ENCOUNTER 2024-10-24 07:46 | Outpatient (AMB) | payer OTHER, SELFPAY ==
--- OUTSIDE RECORDS SUMMARY | 2024-10-24 07:48 | XMS_ITS | Clinical Summary ---
Author Organization [facility] Address [address] [place] [id number] Care Team Providers Care Estate Attorney Name Role Phone Pcp, No Primary Care Provider Unavailabl e Allergies No known active allergies Medications Medication Sig Dispensed Refills Start Date End Date Status acetaminophen (TYLENOL) 325 MG tablet TAKE 3 TABLETS BY MOUTH EVERY 6 HOURS 11/29/2020 Active Readi-Cat 2 2 % suspension DRINK 1 BOTTLE 6 HOURS BEFORE PROCEDURE. DRINK SECOND BOTTLE 90 MINUTES BEFORE PROCEDURE *NOT CVD* 10/21/2020 Active enoxaparin (LOVENOX) 40 MG/0.4ML injection INJECT 0.4 ML SUBCUTANEOUS INJECTION DAILY,X28 DAYS 11/29/2020 Active gabapentin (NEURONTIN) 300 MG capsule TAKE 2 CAPSULE BY MOUTH 3 TIMES A DAY 11/29/2020 Active glipiZIDE (GLUCOTROL) 5 MG tablet TAKE 1 TABLET BY MOUTH 2 TIMES A DAY,X30 DAYS WITH BREAKFAST AND DINNER. 12/01/2020 Active Social History Tobacco Use Types Packs/Day Years Used Date Smoking Tobacco: Never Assessed Sex and Gender Information Value Date Recorded Sex Assigned at Not on file Gender Identity Not on file Sexual Orientation Not on file Last Filed Vital Signs Vital Sign Reading Time Taken Comments Blood Pressure 125/84 12/17/2020 10:27 AM EDT Pulse 106 12/17/2020 10:27 AM EDT Temperature 36.6 ??C (97.9 ??F) 12/17/2020 10:27 AM E DT Respiratory Rate - - Oxygen Saturation 97% 12/17/2020 10:27 AM EDT Inhaled Oxygen Concentration - - Weight 76.2 kg (168 lb) 12/17/2020 10:27 AM EDT Height 175.3 cm (5' 9 ) 12/17/2020 10:27 AM EDT Body Mass Index 24.81 12/17/2020 10:27 AM EDT Plan of Treatment Health Maintenance Due Date Last Done Comments Hepatitis C Virus Screening 1955 DTaP/Tdap/Td Vaccines (1 - Tdap) 11/26/1975 Colonoscopy 2001 Pneumococcal Vaccines 50+ (1 of 1 - PCV) 2006 Zoster (Shingles) Vaccine (1 of 2) 2006 Influenza Vaccine 04/27/2024 COVID-19 Vaccine (1 - 2023-2 5 season) 2024 RSV Vaccine 60 years and old er and Patients (1 - 1-dose 75+ series) 11/26/2031 Hepatitis B Vaccines Aged Out No long er eligible based on patient's age to complete this topic Care Teams Estate Attorney Relationship Specialty Start Date End Date Pcp, No [address] [place] [address] PCP - General 12/17/20
--- NOTE | 2024-10-24 08:00 | MHC.OFFVIS ---
Vital Signs 10/24/24 08:01 Height 5 ft 7 in Weight 193 lb 4 oz BMI 30.3 BP 124/72 Blood Pressure Location Lt brachial Position Sitting Pulse 64 Pulse Source Pulse Oximeter Pulse Oximetry (%) 97 Oxygen Delivery Method Room Air Intake Visit Reasons: INP: EMMANUEL Allergies No Known Allergies Allergy (Verified 10/24/24 08:03) Medication List - Last Reconciled 10/24/24 by Carmelina Pastor PA-C zolpidem ER (Ambien CR) 12.5 mg PO .nightly 30 days HPI Comments Details: 68 year old R. handed male here for a sleep apnea evaluation, referred to us by Melisa Zhang, PcP. He is a side sleeper, goes to bed at 9pm, wakes up at 3am due to difficulty staying asleep, goes back to sleep and wakes up at 5:30am for work. Feels fatigued most days. He takes ambien 12.5mg prior to sleeping 10:00pm, and it works for about 6 hours. He c/o of sob, denies leg pain, his stress test and cardiac work up at [facility], it was normal. He has headaches daily, vary, subtle, frontal 1/10, dull, < minutes and goes away spontaneously. He has new glasses, blurry vision at night, when relaxing for > year, history of chronic OA Glaucoma, does not require drops. Denies photo/phonophobia, nausea, vomiting, dizziness, vertigo, flashing lights, auras. Denies RLS. He doesn't smoke and or drink alcohol. 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 Mood, memory and diet are normal. He walks daily for work, and drinks very little water. 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 Current occupational exposures/hazards: No Cognitive needs: No Hearing needs: No Vision needs: No Physical Exam Vital Signs: Last Vital Signs Pulse 64 10/24/24 08:01 BP 124/72 10/24/24 08:01 Pulse Ox 97 10/24/24 08:01 Oxygen Delivery Method Room Air 10/24/24 08:01 BMI result Body Mass Index 30.3 Const General: cooperative, comfortable and no acute distress Nutritional Appearance: average body habitus Orientation/consciousness: patient oriented x3 Eyes Pupils: Equal, round and reactive pupils present Neck Neck: Yes full ROM Resp Effort & Inspection: normal respiratory effort and able to speak in complete sentences Neuro General: patient oriented x3 Cranial nerves: Yes CN's II-XII intact bilaterally, Yes Facial sensation intact/muscles of mastication intact, Yes Equal, round and reactive pupils present, Yes Normal accommodation reflex present, Yes Bilaterally intact EOM present, Yes Nystagmus not present, Yes Normal facial strength present, Yes Midline tongue present, Yes Ability to bilaterally rotate head present and Yes Ability to bilaterally elevate shoulders present Cognition (Neuro): normal cognition Gait exam (Neuro): Normal gait present Motor exam (neuro): 5/5 motor strength present throughout and Abnormal motor strength present Deep tendon reflexes (DTR's): Right triceps reflex intensity grade: 2+, Left triceps reflex intensity grade: 2+, Rt Biceps (C5, C6): 2+, Left biceps reflex intensity grade: 2+, Right brachioradialis reflex intensity grade: 2+, Left brachioradialis reflex intensity grade: 2+, Right patellar reflex intensity grade: 2+ and Left patellar reflex intensity grade: 2+ Psych Appearance: grossly normal Mental Status: mental status grossly normal Speech and movement: Normal speech and movement present Affect: normal affect Attitude: cooperative Thought process: Normal thought process present Thought content: Normal thought content present Insight: Good insight present (Psych) Judgement: Good judgement present (Psych) Assessment & Plan Assessment & Plan (1) Insomnia: Code(s): G47.00 - Insomnia, unspecified Category: Medical Qualifiers: Insomnia type: unspecified Qualified Code(s): G47.00 - Insomnia, unspecified (2) Fatigue due to sleep pattern disturbance: Code(s): R53.83 - Other fatigue; G47.9 - Sleep disorder, unspecified Category: Medical Plan HST Sleep disturbances, Excessive daytime fatigue. Labs: R/o deficiencies related to fatigue. Patient Education: Sleep Hygiene: Dark cool room, no devices in bed. May stop drinking fluids 2 hours prior to bedtime. Continue ambien 12.5mg as needed will discuss other options for sleep meds next visit. F/u 3months. Orders: Orders Vitamin B12 and Folate Today G47.00 - Insomnia, unspecified, G47.9 - Sleep disorder, unspecified, R53.83 - Other fatigue RT home sleep study Today G47.00 - Insomnia, unspecified Vitamin D 25-OH Total Today G47.9 - Sleep disorder, unspecified, R53.83 - Other fatigue Homocysteine Today G47.9 - Sleep disorder, unspecified, R53.83 - Other fatigue Methylmalonic Acid Today G47.9 - Sleep disorder, unspecified, R53.83 - Other fatigue Coding Level of Care Code New Pt Level 3 (70079) Diagnoses Insomnia, unspecified type G47.00 Insomnia type: unspecified Fatigue due to sleep pattern disturbance R53.83; G47.9 Time Spent (min) 30 Comment Baseline Evaluation Sleep Questionnaire Difficulty falling asleep: No (uses 12.5mg ambien) Difficulty staying asleep?: Yes Number of arousals: 1x 3am usually after 6 hr Snoring: No (wears cpap) Witnessed apneas: No Gasping arousals: No Nocturia: No GERD: No Vivid dreams: Yes Acting out dreams: No Abnormal behavior in sleep: No Abnormal movements in sleep: Yes (R. knee surgery doesn't straighten) Morning headaches: Yes (4/7 days per week) Excessive daytime sleepiness: Yes Daytime naps: Yes (Weekends 30 min - 45min) Restless legs: No Hallucinations: No Sleep paralysis: No Drop attacks: No Sleep Study: Yes (>2014) CPAP: Yes
[2024-10-24 08:01] VITALS: BP 124/72; PULSE 64; O2SAT 97; BMI 30.3
== END 2024-10-24 08:39 | disposition home or self-care (01) ==
PROVIDERS: PCP Physician Assistant; Visit Provider Physician Assistant Medical
DX: G47.00 Insomnia, unspecified (principal); R53.83 Other fatigue; G47.9 Sleep disorder, unspecified
CPT/HCPCS: 99203

== ENCOUNTER 2024-11-22 13:19 | Outpatient (REF) | payer OTHER, SELFPAY ==
[2024-11-22 14:41] LABS: Estimated Average Glucose 148 mg/dL; Hemoglobin A1c % 6.8 % (<6.0)
[2024-11-22 15:15] LABS: Vitamin D 25-OH Total 24.2 ng/mL (>30)
[2024-11-22 15:30] LABS: Folate 9.5 ng/mL (> or = 4.0); Vitamin B12 229 pg/mL (200-900)
--- OUTSIDE RECORDS SUMMARY | 2024-11-22 16:18 | XMS_ITS | Clinical Summary ---
Author Organization [facility] Address [address] [place] [address] Care Team Providers Care Psych Social Worker Name Role Phone Pcp, No Primary Care [...] age to complete this topic Care Teams Psych Social Worker Relationship Specialty Start Date End Date Pcp, No [address] [place] [address] PCP - General 12/17/20
[2024-11-23 19:13] LABS: Homocysteine 15.4 umol/L (<11.4)
[2024-11-26 05:03] LABS: Methylmalonic Acid 198 nmol/L (69-390)
== END 2024-11-22 13:20 | disposition home or self-care (01) ==
LOC: HO.WFDLDS 13:19
PROVIDERS: Physician Assistant Medical; Visit Provider Physician Assistant
DX: R73.01 Impaired fasting glucose (principal); G47.00 Insomnia, unspecified; R53.83 Other fatigue; G47.9 Sleep disorder, unspecified
CPT/HCPCS: 36415; 82306; 82607; 82746; 83036; 83090; 83921

== ENCOUNTER 2024-12-07 09:17 | Outpatient (AMB) | payer OTHER, SELFPAY ==
--- NOTE | 2024-12-07 09:25 | A.OFFPC_ITS ---
Vital Signs 12/07/24 09:27 Height 5 ft 7 in Weight 191 lb BMI 29.9 BP 132/82 Blood Pressure Location Lt brachial Position Sitting Respiration 14 Pulse 63 Pulse Source Pulse Oximeter Pulse Oximetry (%) 99 Oxygen Delivery Method Room Air Intake Visit Reasons: f/u appt. per Melisa Intake Note: Follow up Vocational Rehabilitation Teacher Required: No Allergies No Known Allergies Allergy (Verified 12/07/24 09:25) Medication List - Last Reconciled 12/07/24 by Melisa Zhang PA-C blood sugar diagnostic (FreeStyle Lite Strips) Use daily As directed to check blood glucose blood-glucose meter (FreeStyle Lite Meter kit) Use daily As directed to check blood sugars cholecalciferol (vitamin D3) 25 mcg PO DAILY lancets (FreeStyle Lancets) use daily as directed to check blood glucose zolpidem ER (Ambien CR) 12.5 mg PO .nightly 30 days Tobacco use date assessed: 12/07/24 Dental Screening Dental Screen Date: 03/15/24 HPI f/u appt. per Melisa HPI Details Patient is a 69-year-old male with a significant past medical history of Crohn's disease, obstructive sleep apnea on CPAP, insomnia and newly diagnosed type 2 diabetes. Endo: Recent labs showed impaired fasting glucose with an A1c of 6.8. He had a glucometer ordered and states that since his recent blood sugar checking he has been a lot better with his diet. Initially his sugars were about 200 in the morning fasting and now they are about 114. He wants to control this with diet. He is interested in seeing a facility maintenance helper and for further diabetic Education. He tells me today that years ago he actually had an A1c of 8 and was able to lower this with diet to normal within a short time. He states that having diabetes is not something he is unfamiliar with but he is very motivated to fix his lifestyle. PULM: He is following with pulmonology for obstructive sleep apnea. CV: Blood pressure today in the office is 124/72. He was seen recently for cp and shortness a breath with exertion and had a negative stress test and echo. Chest x-ray WNL. He states that his symptoms resolved. He believes it was when he was sick and that is why he had it. Uro: has a hx of elevated PSAs, he has seen urology but never followed up for results GI: He followed with colorectal surgery in 2021 after his reversal in April 2022. He Is due to see GI again but states that his book packer left [facility] and he needs a referral to see someone new. 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 Current occupational exposures/hazards: No Cognitive needs: No Hearing needs: No Vision needs: No Questionnaire Thrive Questionnaire Date Thrive assessed: 06/15/24 I am a: Patient What is your living situation today?: I choose not to answer this question Within the past 12 months, did the food you bought not last and you didn't have the money to get more?: I choose not to answer this question Within the past 12 months, did you worry whether your food would run out before you got money to buy more?: I choose not to answer this question Do you have trouble paying for medicines?: I choose not to answer this question Do you have trouble getting transportation to medical appointments?: I choose not to answer this question Do you have trouble paying your heating and electricity bill?: I choose not to answer this question Do you have trouble taking care of your child, family member or friend?: I choose not to answer this question Do you have trouble with day-to-day activities such as bathing, preparing meals, shopping, managing finances, etc.?: I choose not to answer this question Are you currently unemployed and looking for a job?: I choose not to answer this question Are you interested in more education?: I choose not to answer this question Please select the resources that you would like help with: None Currently or been in a relationship where the following occur: I choose not to answer THRIVE Score: 0 AUDIT C Alcohol Use Questionnaire (AUDIT-C) 1. How often do you have a drink containing alcohol?: Never Total Score: 0 MATA-7 AMB Questionnaire MATA-7 Date MATA - 7 assessed: 12/07/24 Feeling nervous, anxious, or on edge: 0 = Not at all Not being able to stop or control worryin = Not at all Worrying too much about different things: 0 = Not at all Trouble relaxin = Not at all Being so restless that it is hard to sit still: 0 = Not at all Becoming easily annoyed or irritable: 0 = Not at all Feeling afraid as if something awful might happen: 0 = Not at all Total MATA-7 score (0-4 normal; 5-9 mild; 10-14 moderate; 15-21 severe): 0 Source: Developed by Drs. Bertin Farias, Rita Stewart, Mario Baca and colleagues, with an educational joao from [employer]. MATA-7 Assessment Billing MATA-7 Assessment Tool: MATA-7 Assessment 90820 Physical exam (Primary Care) Vital Signs: Last Vital Signs Pulse 63 12/07/24 09:27 Resp 14 12/07/24 09:27 BP 132/82 12/07/24 09:27 Pulse Ox 99 12/07/24 09:27 Oxygen Delivery Method Room Air 12/07/24 09:27 BMI result Body Mass Index 29.9 Tobacco/Smoking Status: Tobacco use Status Tobacco use date assessed 12/07/24 12/07/24 09:27 Patient Tobacco Use Status Former Tobacco user 12/07/24 09:26 e-Cigarette/Vaping Use Never Used 12/07/24 09:26 Thrive Assessment: Date of Thrive Assessment Date Thrive assessed 06/15/24 12/07/24 09:26 Currently or been in a relationship where the following occur: I choose not to answer Const Orientation/consciousness: patient oriented x3 Neck Neck: Yes no lymphadenopathy Thyroid: Thyroid normal Carotids: no bruits Resp Auscultation: clear to auscultation bilaterally Cardio Rate: regular rate Rhythm: regular rhythm Heart sounds: S1 normal heart sound present and S2 normal heart sound present Peripheral pulses: dorsalis pedis present Neuro General: patient oriented x3, gait normal and no focal motor deficits Extrem General: Yes normal to inspection Results Reviewed Results Reviewed: Laboratory Tests 09/18/24 11/22/24 09:51 13:22 Estimated GFR > 60 Estimat Average Glucose 148 Hemoglobin A1c % 6.8 H AST 24 ALT 45 H Alkaline Phosphatase 73 Vitamin B12 229 Methylmalonic Acid 198 25-OH Vitamin D Total 24.2 L Conclusions: - The left ventricular systolic function is normal. The calculated ejection fraction is 61% by biplane method. - No obvious valvular pathology seen on this study. Stress test: without ekg changes for ischemia Coding Level of Care Code Est Pt Level 4 (35903) Complex EM visit Add On G2211 Diagnoses Type 2 diabetes, diet controlled E11.9 Crohn's disease of large intestine without complication K50.10 Digestive disease complication type: without complication Gastrointestinal tract location: large intestine TAVERAS (dyspnea on exertion) R06.09 Insomnia, unspecified type G47.00 Insomnia type: unspecified Vitamin D insufficiency E55.9 Elevated PSA R97.20 Additional Codes MATA-7 Assessment Billing - MATA-7 Assessment Tool: MATA-7 Assessment 22546 ([id number]) Assessment & Plan Assessment & Plan (1) Type 2 diabetes, diet controlled: Code(s): E11.9 - Type 2 diabetes mellitus without complications Category: Medical Plan: referral to dm education referral to facility maintenance helper (2) Crohn disease: Code(s): K50.90 - Crohn's disease, unspecified, without complications Category: Medical Qualifiers: Digestive disease complication type: without complication Gastrointestinal tract location: large intestine Qualified Code(s): K50.10 - Crohn's disease of large intestine without complications Plan: stable follows with GI at [facility] and thinks he needs a new referral (3) TAVERAS (dyspnea on exertion): Code(s): R06.09 - Other forms of dyspnea Category: Medical Plan: Resolved. (4) Insomnia: Code(s): G47.00 - Insomnia, unspecified Category: Medical Qualifiers: Insomnia type: unspecified Qualified Code(s): G47.00 - Insomnia, unspecified Plan: Continue with zolpidem. (5) Vitamin D insufficiency: Code(s): E55.9 - Vitamin D deficiency, unspecified Category: Medical Plan: Started vitamin-D supplement. (6) Elevated PSA: Code(s): R97.20 - Elevated prostate specific antigen [PSA] Category: Medical Plan: Advised to complete labs and urine today. For whatever reason, this was not drawn at the last lab draw. Orders: Orders TSH reflex Free T4 2 Months E11.9 - Type 2 diabetes mellitus without complications Prostate Specific Antigen Scr Today R97.20 - Elevated prostate specific antigen [PSA], Z01.89 - Encounter for other specified special examinations UA CC w/rflx Micro + Cult Today R97.20 - Elevated prostate specific antigen [PSA], Z13.220 - Encounter for screening for lipoid disorders Comprehensive [place]. Panel Fast 2 Months E11.9 - Type 2 diabetes mellitus without complications Complete Blood Count Auto Diff 2 Months E11.9 - Type 2 diabetes mellitus without complications Hemoglobin A1c 2 Months E11.9 - Type 2 diabetes mellitus without complications, R73.01 - Impaired fasting glucose Microalbumin, Random (w Creat) 2 Months E11.9 - Type 2 diabetes mellitus without complications Referrals Diabetes Education Referral E11.9 - Type 2 diabetes mellitus without complications Frontend Engineer Nutrition Referral E11.9 - Type 2 diabetes mellitus without complications Gastroenterology Referral K50.10 - Crohn's disease of large intestine without complications Medications: New cholecalciferol (vitamin D3) 25 mcg PO DAILY 90 caps 1RF
[2024-12-07 09:27] VITALS: BP 132/82; PULSE 63; RESP 14; O2SAT 99; BMI 29.9
--- OUTSIDE RECORDS SUMMARY | 2024-12-07 10:48 | XMS_ITS | Clinical Summary ---
Author Organization [facility] Address [address] [place] [id number] Care Team Providers Care Globe Mounter Name Role Phone Pcp, No Primary Care [...] age to complete this topic Care Teams Globe Mounter Relationship Specialty Start Date End Date Pcp, No [address] [place] [address] PCP - General 12/17/20
== END 2024-12-07 10:03 | disposition home or self-care (01) ==
LOC: HO.HMCFM 09:18
PROVIDERS: PCP Physician Assistant; Visit Provider Physician Assistant
DX: E11.9 Type 2 diabetes mellitus without complications (principal); K50.10 Crohn's disease of large intestine without complications; R06.09 Other forms of dyspnea; G47.00 Insomnia, unspecified; E55.9 Vitamin D deficiency, unspecified; R97.20 Elevated prostate specific antigen [PSA]

== ENCOUNTER → 2024-12-07 09:17 | Outpatient (BNVA) | payer OTHER, SELFPAY | PROVIDERS: PCP Physician Assistant; Visit Provider Physician Assistant | DX: E11.9 Type 2 diabetes mellitus without complications (principal); K50.10 Crohn's disease of large intestine without complications; R06.09 Other forms of dyspnea; G47.00 Insomnia, unspecified; E55.9 Vitamin D deficiency, unspecified; R97.20 Elevated prostate specific antigen [PSA] | CPT/HCPCS: 96127 ==

== ENCOUNTER 2024-12-07 10:33 | Outpatient (REF) | payer OTHER, SELFPAY ==
--- OUTSIDE RECORDS SUMMARY | 2024-12-07 13:15 | XMS_ITS | Clinical Summary ---
Author Organization [facility] Address [address] [place] [id number] Care Team Providers Care Manager Skilled Name Role Phone Pcp, No Primary Care [...] age to complete this topic Care Teams Manager Skilled Relationship Specialty Start Date End Date Pcp, No [address] [place] [address] PCP - General 12/17/20
[2024-12-07 14:11] LABS: Appearance Urine Turbid; Color Urine Yellow; Glucose Urine UA Negative (Negative); Leukocyte Esterase Urine Negative (Negative); Nitrite Urine Negative (Negative); PH 5.5 (5.0-9.0); Specific Gravity - Urine 1.025 (1.005-1.025); Urine Blood Negative (Negative); Urine Ketones Negative (Negative); Urine Protein Negative (Neg-Trace)
[2024-12-07 15:02] LABS: Prostate Specific Antigen Scr 3.52 ng/mL (<0.05-4.0)
== END 2024-12-07 10:34 | disposition home or self-care (01) ==
LOC: HO.WFDLDS 10:33
PROVIDERS: Visit Provider Physician Assistant
DX: Z01.89 Encounter for other specified special examinations (principal); R97.20 Elevated prostate specific antigen [PSA]; Z13.220 Encounter for screening for lipoid disorders; Z12.5 Encounter for screening for malignant neoplasm of prostate
CPT/HCPCS: 36415; 81003; 84153

== ENCOUNTER → 2024-12-14 15:49 | Outpatient (REF) | payer OTHER, SELFPAY | LOC: HO.SL 15:49 | PROVIDERS: PCP Physician Assistant; Visit Provider Physician Assistant Medical | DX: G47.00 Insomnia, unspecified (principal); G47.33 Obstructive sleep apnea (adult) (pediatric) | CPT/HCPCS: 95806 ==

== ENCOUNTER → 2024-12-14 16:01 | Outpatient (BNV) | payer OTHER, SELFPAY | PROVIDERS: PCP Physician Assistant; Visit Provider Psychiatry & Neurology Neurology | DX: G47.33 Obstructive sleep apnea (adult) (pediatric) (principal) | CPT/HCPCS: 95806 ==

== ENCOUNTER 2025-01-02 08:20 | Outpatient (AMB) | payer OTHER, SELFPAY ==
--- NOTE | 2025-01-02 08:32 | A.OFFVIS_ITS ---
VS Expanded 01/02/25 08:36 01/02/25 08:45 Height 5 ft 7 in 5 ft 7 in Weight 190 lb 14.725 oz 191 lb BMI 29.9 29.9 Intake Visit Reasons: Type 2 diabetes mellitus without complications Allergies No Known Allergies Allergy (Verified 12/07/24 09:25) Nutrition Presentation Details: Pt presents for MNT for T2DM Food frequency fish: twice/wk fruits: 1/d dairy: not including vegetables: variety starches> 20/d Pt has crohn's disease working on avoiding foods/beverages with caffeine etoh: denies smoking: denies PA: ADL B:oatmeal with blueberry water lunch: on the go avoiding fried foods Diner: potatoes/beef/carrots snack: think bars, nuts/trail mixes BS Monitoring Most Recent Diabetes Results: Creatinine 1.09 mg/dL (0.5-1.4) 09/18/24 Blood Urea Nitrogen 12 mg/dL (9-16) 09/18/24 Sodium 141 mmol/L (135-145) 09/18/24 Potassium 4.0 mmol/L (3.3-5.1) 09/18/24 Chloride 108 mmol/L (96-108) 09/18/24 Carbon Dioxide 29 mmol/L (22-29) 09/18/24 Calcium 9.0 mg/dL (8.4-10.2) 09/18/24 AST 24 U/L (5-37) 09/18/24 ALT 45 U/L (0-40) H 09/18/24 Total Protein 6.9 g/dL (6.5-8.0) 09/18/24 Albumin 4.2 g/dL (3.5-5.0) 09/18/24 JYX-Idhvoaz-Xi.Jeor Equation Height: 5 ft 7 in Weight: 191 lb Resting Metabolic Rate: 1599.56 Calculated Activity Level: Mild Activity Calories Needed to Maintain Weight: 2199.40 Diagnosis Nutrition problem #1: food nutri know defi As related to (etiology) #1: diagnosis As evidenced by (sign/symptom) #1: knowledge deficit of diet PFSH Medical History Erectile dysfunction Incisional hernia of anterior abdominal wall without obstruction or gangrene Elevated PSA Crohn disease EMMANUEL on CPAP Insomnia Family History Mother Alcoholism Father Alcoholism Sister Alcoholism Brother Alcoholism Other Substance use Social History Housing: House Patient Tobacco Use Status: Former Tobacco user Cigarette Packs Per Day: 1 Years Smoked: 20, quit 45 years ago e-Cigarette/Vaping Use: Never Used Second Hand Smoke Exposure: No service: Yes Current occupational status: employed 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 Current occupational exposures/hazards: No Cognitive needs: No Hearing needs: No Vision needs: No Assessment & Plan Assessment & Plan (1) Type 2 diabetes, diet controlled: Code(s): E11.9 - Type 2 diabetes mellitus without complications Category: Medical Plan: Wt: 87 Kg ( 01/19 ) Est kcal needs as per MSJ: 6227-5665 (40% carb, 30% protein/fat) Est fluid needs as per 25-30 ml/d: 2600 Est prot per day as per 1 g/kg bw: 87 Recommend fiber intake : 8-10 g per day and gradually increase to 25-28 g per day for women and 35-38 g for men or as tolerated Recommend sodium intake per day : less than 2000 mg Educated patient on: ( R = reviewed V = verbalizes understanding N/R = needs review N/A = not applicable * Food sources of carbohydrate, adequate serving sizes and its role in various health conditions: R * Differences between complex carbohydrates a simple carbohydrates, role of fiber in diet: R V N/R * Lean protein sources of foods: R * Differences between types of fats and role in diet (mono on saturated fat fatty acids, saturated fatty acids, trans fats): R V N/R * Food sources of sodium in salt and healthy modifications for heart health in kidney health: R V R/V * Vitamins and minerals: R V N/R * Healthy plate method concept: R V N/R * Physical activity: Benefits a precaution: R V N/R * Hypoglycemia protocol (rule of 15): R V N/R * Dietary prevention of Hyperglycemia: R * Sugar alcohol precaution: R * REVIEW Natural gluten free food options related to Crohns disease Patient Instructions: Work on meal planning and watch total carbohydrate intake goal less than 75 g at meal and 0-20 g as snack include lean protein foods in your meal take a daily MVI Coding Level of Care Code Nutr Indiv Intake (83141) Diagnoses Type 2 diabetes, diet controlled E11.9 Time Spent (min) 30
[2025-01-02 08:36] VITALS: BMI 29.9
--- OUTSIDE RECORDS SUMMARY | 2025-01-02 08:36 | XMS_ITS | Clinical Summary ---
Author Organization [facility] Address [address] [place] [address] Care Team Providers Care Mail Examiner Name Role Phone Pcp, No Primary Care [...] age to complete this topic Care Teams Mail Examiner Relationship Specialty Start Date End Date Pcp, No [address] [place] [address] PCP - General 12/17/20
[2025-01-02 08:45] VITALS: BMI 29.9
== END 2025-01-02 09:19 | disposition home or self-care (01) ==
LOC: HO.ENCR 08:20
PROVIDERS: PCP Physician Assistant; Visit Provider Dietitian, Registered
DX: E11.9 Type 2 diabetes mellitus without complications (principal)

== ENCOUNTER → 2025-01-02 08:20 | Outpatient (BNVA) | payer OTHER, SELFPAY | PROVIDERS: PCP Physician Assistant; Visit Provider Dietitian, Registered | DX: E11.9 Type 2 diabetes mellitus without complications (principal) | CPT/HCPCS: 97802 ==

== ENCOUNTER 2025-01-24 07:58 | Outpatient (AMB) | payer OTHER, SELFPAY ==
--- OUTSIDE RECORDS SUMMARY | 2025-01-24 08:01 | XMS_ITS | Continuity of Care Document ---
Author Organization [place] - [facility], [facility] Address [address] [place] [address] Care Team Providers Care Multimedia Editor Name Role Phone LORENZO BLOOM Primary Care Provider LORENZO BLOOM Referring Provider [phone] Assessment Encounter Date Assessment Date Assessment LastModified by Organization Details LastModified Time 01/19/2025 01/19/2025 69-year-old male presents for evaluation of bilateral tinnitus. Otologic exam is unremarkable today. Audiometric testing shows mild sensorineural hearing loss bilaterally which is slightly worse on the left side. Asymmetry not quite enough to warrant MRI of the IACs but we will monitor. Recommended follow-up in 6 months with repeat hearing test to ensure stability. If it continues to be stable would recommend testing every 1 to 2 years or sooner for acute changes. Not yet a candidate for amplification. We discussed tinnitus masking techniques though he is not terribly bothered when sleeping. All questions were answered today. [email or web address] Not available 01/19/2025 10:28:12 Plan of Treatment Reminders Order Date Submit Date Provider Last Modified By Organization Details Last Modified Time Details Appointments Hearing Test 2024 09:30A M Hearing Test Not available Not available Not available Establish ed 15 2024 09:45A M BRODERICK DAILEY PA-C Not available Not available Not available Lab None recorded. Referral None recorded. Procedures None recorded. Surgeries None recorded. Imaging None recorded. Medication Orders None recorded. Patient TargetsNo targets recorded. Patient InstructionsNo instructions recorded. Reason for Referral None Reported. Results Created Date Observation Date Name Description Value Unit Range Abnormal Flag Note LastModifiedBy Organization Detail LastModifiedTime 01/20/20 audio gram No observ ation record ed. BARCODE Not Available 2024 11:25:25 Result Notes None recorded. Problems Name Problem SNOMED Code Status Onset Date Resolution Date Notes Provider Name and Address Organization Details Recorded Time Sensorineur al hearing loss of bilateral ears 884410141 Active 2024 RUSTY DOWNING [address] [facility],[place] [address], [place], [address], [facility] 10:10:08 Bilateral tinnitus 9291033093329 Active 2024 BRODERICK DAILEY PA-C [address] [facility],[place] [address], [place], [address], [facility] 10:28:16 Problem Notes None recorded. Procedures Surgical History Date Name Laterality Status Provider Name and Address Organization Details Recorded Time 01/19/2025 Comp Audio with Tymps (88678 & 69361) completed RUSTY DOWNING [address] [facility],[address], [address], [facility] 01/19/2025 10:09:55 Imaging Results None recorded. Procedure Notes None recorded. Medical Equipment None Reported. Allergies No known drug allergies Medications Name Sig Start Date Stop Date Status Note LastModified by Organization Details LastModified Time sildenafil 50 mg tablet TAKE 1 TABLET DAILY NEEDED FOR SEXUAL ACTIVITY ADMINISTE R 30 MINUTES TO 4 HOURS BEFORE ACTIVITY active Not Available Not Available No t Available azithromyci n 250 mg tablet TAKE 2 TABLETS BY MOUTH TODAY, THEN TAKE 1 TABLET DAILY FOR 4 DAYS DIRECTED 01/19 completed Not Available Not Available Not Available FreeStyle Lancets 28 gauge USE DAILY DIRECTED TO CHECK BLOOD GLUCOSE active Not Available Not Available No t Available hydroxyzine HCl 50 mg tablet TAKE 1 TABLET BY MOUTH EVERY DAY AT BEDTIME NEEDED FOR ANXIETY active Not Available Not Available No t Available trazodone 100 mg tablet TAKE 2 TABLETS BY MOUTH EVERY DAY AT BEDTIME active Not Available Not Available No t Available imiquimod 5 % topical cream packet APPLY TO FOREHEAD AND SCALP TWICE A WEEK FOR 16 WEEKS 01/19 completed Not Available Not Available Not Available zolpidem 5 mg tablet TAKE 1 TABLET BY MOUTH AT BEDTIME FOR 30 DAYS 01/19 completed Not Available Not Available Not Available methylpredn isolone 4 mg tablets in a dose pack TAKE 6 TABLETS ON DAY 1 DIRECTED ON PACKAGE AND DECREASE BY 1 TAB EACH DAY FOR A TOTAL OF 6 DAYS active Not Available Not Available No t Available amoxicillin 875 mg-potassiu m clavulanate 125 mg tablet TAKE 1 TABLET BY MOUTH TWICE A DAY FOR 7 DAYS 01/19 completed Not Available Not Available Not Available cholecalcif philomena (vitamin D3) 25 mcg (1,000 unit) capsule TAKE 1 CAPSULE BY MOUTH EVERY DAY active Not Available Not Available No t Available zolpidem ER 12.5 mg tablet,exte nded release,mul tiphase TAKE 1 TABLET BY MOUTH AT BEDTIME FOR 30 DAYS active Not Available Not Available No t Available FreeStyle Lite Meter kit USE DAILY DIRECTED TO CHECK BLOOD SUGARS active Not Available Not Available No t Available FreeStyle Lite Strips USE DAILY DIRECTED TO CHECK BLOOD GLUCOSE active Not Available Not Available No t Available Stelara 90 mg/mL subcutaneou s syringe active Not Available Not Available No t Available Vitals Date Recorded Body height Body mass index (BMI) Body weight Provider Name and Address Organization Details Last Updated DateTime 01/19/2025 172.72 cm 28.9 kg/m2 38671.55 g RENETTA MONTOYA [place] - [facility] 01/19/2025 10:17:20 Social History Question Answer Notes LastModified by Organizat ion Details LastModified Time Tobacco Smoking Status Never Smoker RENETTA bermudez [place] - [facility] 01/19/2025 10:16:58 What Is Your Level Of Alcohol Consumption? None [email or web address] Information not available 01/19/2025 Sex: Unknown Functional Status None recorded. Mental Status None recorded. Family History Nothing Reported. Medical History No medical history recorded. Past Encounters Encounter ID Performer Location Encounter Start Date Encounter Closed Date Diagnosis/Indication Diagnosis SNOMED-CT Code Diagnosis ICD10 Code Diagnosis Note [id number] BRODERICK DAILEY PA-C [facility] [address] [address] 01/19/2025 09:42:10 01/19/2025 10:26:12 Sensorineural hearing loss of bilateral ears 994431748 H90.3 Audiologic al evaluation results: Right ear: {{Normal* Normal through 2 kHz Mild M oderate Mo derately-s evere Chela re Profoun d}} {{hearing hearing. s loping to a mild slopi ng to a moderate s loping to moderately severe slo ping to severe slo ping to profound f lat high frequency low frequency mid frequency cookie bite temple curve hear ing with the exception of a mild SNHL at 4000Hz#}} {{with* se nsorineura l hearing loss with condu ctive hearing loss with mixed hearing loss with}} {{excellen t* good fa ir poor no measurable }} word recognitio n. Left ear: {{Normal N ormal through 2 kHz Mild M oderate Mo derately-s evere Chela re Profoun d Borderli ne normal#}} {{hearing hearing. s loping to a mild* slop ing to a moderate s loping to moderately severe slo ping to severe slo ping to profound f lat high frequency low frequency mid frequency cookie bite temple curve}} {{with sen sorineural hearing loss with* cond uctive hearing loss with mixed hearing loss with}} {{excellen t* good fa ir poor no measurable }} word recognitio n. Tympanomet ry: Right Ear:{{Type A* Type A with rounded peak Type A with double peak Type As Type As with rounded peak Type Ad Type C Type C, shallow & rounded peak Type B Type B with large volume Cou ld not maintain a hermetic seal}} Left Ear:{{Type A* Type A with rounded peak Type A with double peak Type As Type As with rounded peak Type Ad Type C Type C, shallow & rounded peak Type B Type B with large volume Cou ld not maintain a hermetic seal}} Bilateral tinnitus 01549 81171 102 H93.13 Health Concerns Section Related Observation LastModified by Organization Detai ls LastModified Time None Recorded Concern Status LastModified by Organization Details LastModified Time None Recorded Payers Encounter Date Sequence Insurance Name Policy Number Policy Tiwari Covered Member ID Tiwari Member ID Guarantor Name 01/19/2025 1 [facility] [id number] Suraj Loomis [id number] Suraj Loomis Notes Date Note Type Note Provider Name and Address Organization Details Recorded Time 01/19/2025 text/html 69-year-old male presents for evaluation of bilateral tinnitus. It has been present for many years. History of noise exposure in the . He does note that he has some hearing loss on the left side which has been present for many years. No reports of vertigo. BRODERICK DAILEY PA-C [address] [place] [address], [place], [address], [facility] - [facility] 01/19/2025 10:28:44
--- OUTSIDE RECORDS SUMMARY | 2025-01-24 08:01 | XMS_ITS | Clinical Summary ---
Author Organization [facility] Address [address] [place] [address] Care Team Providers Care Telecine Operator Name Role Phone Pcp, No Primary Care Provider Unavailabl e Allergies No known active allergies Medications acetaminophen (TYLENOL) 325 MG tablet TAKE 3 TABLETS BY MOUTH EVERY 6 HOURS 1 Active Readi-Cat 2 2 % suspension DRINK 1 BOTTLE 6 HOURS BEFORE PROCEDURE. DRINK SECOND BOTTLE 90 MINUTES BEFORE PROCEDURE *NOT CVD* 1 Active enoxaparin (LOVENOX) 40 MG/0.4ML injection INJECT 0.4 ML SUBCUTANEOUS INJECTION DAILY,X28 DAYS 1 Active gabapentin (NEURONTIN) 300 MG capsule TAKE 2 CAPSULE BY MOUTH 3 TIMES A DAY 1 Active glipiZIDE (GLUCOTROL) 5 MG tablet TAKE 1 TABLET BY MOUTH 2 TIMES A DAY,X30 DAYS WITH BREAKFAST AND DINNER. 1 Active Social History Tobacco Use Types Packs/Day Years Used Date Smoking Tobacco: Never Assessed Sex and Gender Information Value Date Recorded Sex Assigned at Not on file Legal Sex Male 10:16 AM EDT Gender Identity Not on file Sexual Orientation [...] on patient's age to complete this topic Insurance Care Teams Telecine Operator Relationship Specialty Start Date End Date Pcp, No [address] [place] [address] PCP - General 12/17/20
--- OUTSIDE RECORDS SUMMARY | 2025-01-24 08:01 | XMS_ITS | Data Portability ---
Author Organization [place] - [facility], Allergy Address [address] [place] [address] Care Team Providers Care Computer Education Teacher Name Role Phone LORENZO BLOOM Primary Care Provider LORENZO BLOOM Referring Provider [phone] Assessment Encounter Date Assessment Date Assessment LastModified [...] when sleeping. All questions were answered today. [email or web address] Not available 01/19/2025 10:28:12 Plan of Treatment [...] Sensorineur al hearing loss of bilateral ears 690852318 Active 2024 RUSTY DOWNING [address] [address], [place], [address], [facility] 10:10:08 Bilateral tinnitus 6539024736999 Active 2024 BRODERICK DAILEY PA-C [address] [address], [place], [address], [facility] 10:28:16 Problem Notes None recorded. Procedures Surgical History Date Name Laterality Status Provider Name and Address Organization Details Recorded Time 01/19/2025 Comp Audio with Tymps (32932 & 17396) completed RUSTY DOWNING 100 [facility],[address], [address], [facility] 01/19/2025 10:09:55 Imaging Results Imaging Date Name Status LastModified by Organiz ation Details LastModified Time 01/19/2025 audiogram completed BARCODE Information no t available 01/19/2025 11:25:25 Procedure Notes None recorded. Medical Equipment None [...] Updated DateTime 01/19/2025 172.72 cm 28.9 kg/m2 58189.55 g RENETTA MONTOYA [place] - [facility] 01/19/2025 10:17:20 Social History Question Answer Notes LastModified by Organizat ion Details LastModified Time Tobacco Smoking Status Never Smoker RENETTA bermudez [place] - [facility] 01/19/2025 10:16:58 What Is Your Level Of Alcohol Consumption? None [email or web address] Information not available 01/19/2025 Sex: Unknown Functional Status None recorded. Mental Status None recorded. Family History Nothing Reported. Medical History No medical history recorded. Past Encounters Encounter ID Performer Location Encounter Start Date Encounter Closed Date Diagnosis/Indication Diagnosis SNOMED-CT Code Diagnosis ICD10 Code Diagnosis Note [id number] BRODERICK DAILEY PA-C [facility] [address] [address] 01/19/2025 09:42:10 01/19/2025 10:26:12 Sensorineural hearing loss of bilateral ears 422559378 H90.3 Audiologic al evaluation results: Right ear: [...] not maintain a hermetic seal}} Bilateral tinnitus 15380 26638 102 H93.13 Health Concerns Section Related Observation LastModified by Organization Detai ls LastModified Time None Recorded Concern Status LastModified by Organization Details LastModified Time None Recorded Advance Directives Directive None Recorded Payers Encounter Date Sequence Insurance Name Policy Number Policy Tiwari Covered Member ID Tiwari Member ID Guarantor Name 01/19/2025 1 [facility] [id number] Suraj Loomis [id number] Suraj Loomis Notes Date Note Type Note [...] No reports of vertigo. BRODERICK DAILEY PA-C [address] [place] [address], [address], [facility] - [facility] 01/19/2025 10:28:44
[2025-01-24 08:02] VITALS: BP 134/86; PULSE 66; O2SAT 98; BMI 29.3
--- NOTE | 2025-01-24 08:02 | A.OFFVIS_ITS ---
Vital Signs 01/24/25 08:02 Height 5 ft 7 in Weight 187 lb 4 oz BMI 29.3 BP 134/86 Blood Pressure Location Lt brachial Position Sitting Pulse 66 Pulse Source Pulse Oximeter Pulse Oximetry (%) 98 Oxygen Delivery Method Room Air Intake Visit Reasons: 3 mnts f/u appt Intake Note: Patient presents follow up Insomnia. Labs/HST in chart (AHI-13/hr, supine AHI- 20/hr, BERNARDINO 84%, Trial AutoPAP 5-20cm water). Patient stated he is also on Stelaria not sure of dose. Allergies No Known Allergies Allergy (Verified 01/24/25 08:08) HPI Comments Details: 68 year old R. handed male here for a sleep apnea evaluation, he was referred to us by pcp. HST c/w EMMANUEL AHI was 13 and Oxygen Bernardino to 84%. He says he is compliant however his SD card is not compatible with his newer machine, and the hoses on the new machine were filling up with moisture so he started to use his old machine, however it is not compatible for monitoring compliance. He says he can not fall asleep with the cpap and uses it daily. He continues to have difficulty staying asleep, he goes to bed at 9pm after taking 12.5mg of ambien and wakes up in the middle of the night then can not fall asleep. He drives 1.[address] work [address], so he is chronically fatigued. He purchases his own nose pillows on [employer] for his old machine, and saysl the head-straps are very uncomfortable as they are made from a different material than the ones on his older machine. 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 He uses a blanket in between his knees since he is a side sleeper, the blanket helps to alleviate the pressure off of his hip. Headaches: He reports daily headaches, subtle, frontal 1/10, dull, < minutes and goes away spontaneously without use of any medications. Denies photo/phonophobia, nausea, vomiting, dizziness, vertigo, flashing lights, auras. He has h/o OA glaucoma does not use drops, reports blurry vision at night time and that is his normal baseline. Denies photo/phonophobia, nausea, vomiting, dizziness, vertigo, flashing lights, auras. Denies RLS. He doesn't smoke and or drink alcohol. Mood, memory and diet are normal. He walks daily at work counts his steps, and is trying to improve his water intake. 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 Current occupational exposures/hazards: No Cognitive needs: No Hearing needs: No Vision needs: No Physical Exam Vital Signs: Last Vital Signs Pulse 66 01/24/25 08:02 BP 134/86 01/24/25 08:02 Pulse Ox 98 01/24/25 08:02 Oxygen Delivery Method Room Air 01/24/25 08:02 BMI result Body Mass Index 29.3 Assessment & Plan Assessment & Plan (1) Insomnia: Code(s): G47.00 - Insomnia, unspecified Category: Medical Qualifiers: Insomnia type: unspecified Qualified Code(s): G47.00 - Insomnia, unspecified (2) Fatigue due to sleep pattern disturbance: Code(s): R53.83 - Other fatigue; G47.9 - Sleep disorder, unspecified Category: Medical (3) EMMANUEL on CPAP: Code(s): G47.33 - Obstructive sleep apnea (adult) (pediatric) Category: Medical Plan HST c/w mild EMMANUEL AHI is 20/hr and oxygen bernardino to 84%. Continue CPAP therapy and emphasized 4-6 hours of use daily, please f/u with your sleep company to return SD card and get connected with [employer] and [employer] ashley. Reviewed Labs with patient today: Vit D is low, A1c 6.8 Homocysteine is 15.4 B12 is low 229, MMA is normal (start B12 daily) Stop Ambien 12.5mg patient education provided re: developed tolerance as he has been taking it for years. Will start on a BZRA - Lunesta - Eszopiclone 1mg PO initial dose and titrate up as needed up to 3mg. Will refer him out to [facility] for chronic sleep apnea ([facility] [employer] [facility]ley and school standards coach) Behavioral medicine services F/u 3months for compliance Medications: New eszopiclone (Lunesta) 1 mg PO BEDTIME 30 days 30 tabs 2RF insomnia MDD 1mg po at bedtime G47.00 - Insomnia, unspecified, G47.33 - Obstructive sleep apnea (adult) (pediatric), G47.9 - Sleep disorder, unspecified, R53.83 - Other fatigue Discontinued zolpidem ER (Ambien CR) Discontinued Reason: Patient Completed Course 12.5 mg PO .nightly 30 days 30 tabs 5RF Patient Instructions: Sleep Hygiene provided: set a scheduled bedtime and wake time to help regulate the circadian rhythm and balance the release of pituitary hormones. Sleep in a dark room, temperatures below 68 degrees, and no devices n bed. Limit caffeinated products 6 hours prior to bed, and limit fluids 2-4 hours prior to bed. Gentle night yoga, diffusing essential oils, and playing soft music can be relaxing. F/u with [facility] so monitoring of compliance is seamless, old machine does not have SD card that is compatible to the cloud. Call [facility], number is provided today to set up appt. Coding Level of Care Code Est Pt Level 4 (56184) Diagnoses Insomnia, unspecified type G47.00 Insomnia type: unspecified Fatigue due to sleep pattern disturbance R53.83; G47.9 EMMANUEL on CPAP G47.33 Time Spent (min) 30 Comment compliance data
== END 2025-01-24 08:42 | disposition home or self-care (01) ==
LOC: HO.HSMS 07:59
PROVIDERS: PCP Physician Assistant; Visit Provider Physician Assistant Medical
DX: G47.00 Insomnia, unspecified (principal); R53.83 Other fatigue; G47.9 Sleep disorder, unspecified; G47.33 Obstructive sleep apnea (adult) (pediatric)
CPT/HCPCS: 99214

== ENCOUNTER 2025-02-22 08:17 | Outpatient (AMB) | payer OTHER, SELFPAY ==
--- NOTE | 2025-02-22 08:24 | MHC.PC.OV ---
Vital Signs 02/22/25 08:27 Height 5 ft 7 in Weight 183 lb 4 oz BMI 28.7 BP 126/70 Blood Pressure Location Lt brachial Position Sitting Respiration 14 Pulse 64 Pulse Source Pulse Oximeter Pulse Oximetry (%) 98 Oxygen Delivery Method Room Air Intake Visit Reasons: dm Intake Note: Diabetes follow up. Right knee pain. Supervisor Testing Required: No Allergies No Known Allergies Allergy (Verified 02/22/25 08:25) Medication List - Last Reconciled 02/22/25 by Melisa Zhang PA-C blood sugar diagnostic (FreeStyle Lite Strips) Use daily As directed to check blood glucose blood-glucose meter (FreeStyle Lite Meter kit) Use daily As directed to check blood sugars cholecalciferol (vitamin D3) 25 mcg PO DAILY eszopiclone (Lunesta) PO lancets (FreeStyle Lancets) use daily as directed to check blood glucose Tobacco use date assessed: 02/22/25 Fall risk assessment: No Falls in past year Last assessed Fall Risk: 02/22/25 Dental Screening Dental Screen Date: 02/22/25 Did you have a dental visit in the last 12 months?: No Did you have a dental problem in the last 6 months where you did not have access to dental care?: No Was dental information given to patient?: Patient has dentist HPI dm HPI Details Patient is a 69-year-old male with a significant past medical history of Crohn's disease, obstructive sleep apnea on CPAP, insomnia and newly diagnosed type 2 diabetes here today for a f/u. Endo: He has a history of prediabetes in a few months ago was diagnosed with type 2 diabetes with an A1c of 6.8. This motivated him to work on lifestyle modifications. His A1c today is 6.2. He has lost 10 lb. States that his colon is very happy with this. He states that he feels better and more energetic since dieting. PULM: He is following with pulmonology for obstructive sleep apnea. Recently stopped zolpidem and started on Lunesta 1 mg. He does feel like it is somewhat effective but maybe 4 or 5 times a week. He states that on average he thinks he still getting about 5 hours a night of sleep and does not feel well rested. He prefers Lunesta to zolpidem. CV: Blood pressure today in the office is 126/70. He was seen recently for cp and shortness a breath with exertion and had a negative stress test and echo. Chest x-ray WNL. He states that his symptoms resolved. He believes it was when he was sick and that is why he had it. Uro: has a hx of elevated PSAs, he has seen urology but never followed up for results. States he got frustrated with that department. His last PSA was WNL. Denies any symptoms. GI: He followed with colorectal surgery in 2021 after his reversal in April 2022. He Is due to see GI again and was referred at our last visit. MSK: Right knee has been more persistently painful in the anterior aspect for the last 3 weeks. No trauma. No swelling.. Denies any instability. Did have a previous surgery to his knee for a chips kneecap. He would like to see Orthopedics again as in the past this type of pain was also improved with a cortisone shot. He has followed with [place] [facility]. COUNTS INCLUDE 234 BEDS AT THE [facility] Medical History Erectile dysfunction Incisional hernia of anterior abdominal wall without obstruction or gangrene Elevated PSA Crohn disease EMMANUEL on CPAP Insomnia Family History Mother Alcoholism Father Alcoholism Sister Alcoholism Brother Alcoholism Other Substance use Social History (Updated 02/22/25 @ 08:33 by Gerda Yadav TOE FORMER) Housing: House Alcohol intake: current Patient Tobacco Use Status: Former Tobacco user Cigarette Packs Per Day: 1 Years Smoked: 20, quit 45 years ago e-Cigarette/Vaping Use: Never Used Second Hand Smoke Exposure: No service: Yes Current occupational status: employed 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 1. Little interest or pleasure in doing things: not at all 2. Feeling down, depressed, or hopeless: not at all 3. Trouble falling or staying asleep, or sleeping too much: not at all 4. Feeling tired or having little energy: not at all 5. Poor appetite or overeating: not at all 6. Feeling bad about yourself - or that you are a failure or have let yourself or your family down: not at all 7. Trouble concentrating on things, such as reading the newspaper or watching television: not at all 8. Moving or speaking so slowly that other people could have noticed. Or the opposite - being so fidgety or restless that you have been moving around a lot more than usual: not at all 9. Thoughts that you would be better off or of hurting yourself in some way: not at all Total score: 0 Depression Screening Interpretation: Negative Depression Screening Done: Yes 24453 - PHQ-9 Billing: Yes Source: Developed by Drs. Bertin Farias, Rita Stewart, Mario Baca and colleagues, with an educational joao from [employer]. Thrive Questionnaire Date Thrive assessed: 02/22/25 I am a: Patient What is your living situation today?: I choose not to answer this question Within the past 12 months, did the food you bought not last and you didn't have the money to get more?: I choose not to answer this question Within the past 12 months, did you worry whether your food would run out before you got money to buy more?: I choose not to answer this question Do you have trouble paying for medicines?: I choose not to answer this question Do you have trouble getting transportation to medical appointments?: I choose not to answer this question Do you have trouble paying your heating and electricity bill?: I choose not to answer this question Do you have trouble taking care of your child, family member or friend?: I choose not to answer this question Do you have trouble with day-to-day activities such as bathing, preparing meals, shopping, managing finances, etc.?: I choose not to answer this question Are you currently unemployed and looking for a job?: I choose not to answer this question Are you interested in more education?: I choose not to answer this question Please select the resources that you would like help with: None Currently or been in a relationship where the following occur: I choose not to answer THRIVE Score: 0 MATA-7 AMB Questionnaire MATA-7 Date MATA - 7 assessed: 12/07/24 Source: Developed by Drs. Bertin Farias, Rita Stewart, Mario Baca and colleagues, with an educational joao from [employer]. Physical exam (Primary Care) Vital Signs: Last Vital Signs Pulse 64 02/22/25 08:27 Resp 14 02/22/25 08:27 BP 126/70 02/22/25 08:27 Pulse Ox 98 02/22/25 08:27 Oxygen Delivery Method Room Air 02/22/25 08:27 BMI result Body Mass Index 28.7 Tobacco/Smoking Status: Tobacco use Status Tobacco use date assessed 02/22/25 02/22/25 08:26 Patient Tobacco Use Status Former Tobacco user 02/22/25 08:33 e-Cigarette/Vaping Use Never Used 02/22/25 08:33 PHQ-9: PHQ-9 Score PHQ-9: Total score 0 02/22/25 08:33 Depression Screening Interpretation: Negative Thrive Assessment: Date of Thrive Assessment Date Thrive assessed 02/22/25 02/22/25 08:33 Currently or been in a relationship where the following occur: I choose not to answer Const Orientation/consciousness: patient oriented x3 HENMT Ears: hearing grossly normal bilaterally Neck Thyroid: Thyroid normal Lymphatic: no lymphadenopathy noted Resp Auscultation: clear to auscultation bilaterally Cardio Rate: regular rate Rhythm: regular rhythm Heart sounds: S1 normal heart sound present and S2 normal heart sound present GI Inspection: Yes normal to inspection Palpation (GI): Soft to palpation and Other GI palpation findings present (nontender, no cva tenderness) Auscultation: normoactive bowel sounds Rectal Exam - Male: Yes deferred Skin General skin exam: no rashes or lesions noted Neuro General: patient oriented x3, gait normal and no focal motor deficits Extrem Other: Full range of motion. No ligamentous laxity noted. Tenderness to palpation over the anterior aspect of the right knee. No effusion noted Results AMB Hemoglobin A1c AMB Hemoglobin A1c 6.2 % Last Edit by Gerda Yadav CMA on 02/22/25 08:37 Results Reviewed Results Reviewed: Laboratory Last Values Hgb A1c (Clinic) 6.2 % (4.0-6.0) H 02/22/25 08:32 Laboratory Tests 09/18/24 11/22/24 12/07/24 09:51 13:22 10:34 Creatinine 1.09 Estimated GFR > 60 Hgb A1c (Clinic) PSA Screen 3.52 Vitamin B12 229 Methylmalonic Acid 198 25-OH Vitamin D Total 24.2 L Folate 9.5 02/22/25 08:32 Creatinine Estimated GFR Hgb A1c (Clinic) 6.2 H PSA Screen Vitamin B12 Methylmalonic Acid 25-OH Vitamin D Total Folate Coding Level of Care Code Est Pt Level 4 (67063) Complex EM visit Add On G2211 Diagnoses Type 2 diabetes, diet controlled E11.9 Vitamin D insufficiency E55.9 Insomnia, unspecified type G47.00 Insomnia type: unspecified EMMANUEL on CPAP G47.33 Right knee pain M25.561 Additional Codes PHQ-9 - 49570 - PHQ-9 Billing: Yes ([id number]) Assessment & Plan Assessment & Plan (1) Type 2 diabetes, diet controlled: Code(s): E11.9 - Type 2 diabetes mellitus without complications Category: Medical Plan: Has significantly reduced his A1c with lifestyle modifications. We will recheck in 3-4 months. (2) Vitamin D insufficiency: Code(s): E55.9 - Vitamin D deficiency, unspecified Category: Medical Plan: He is taking vitamin-D daily (3) Insomnia: Code(s): G47.00 - Insomnia, unspecified Category: Medical Qualifiers: Insomnia type: unspecified Qualified Code(s): G47.00 - Insomnia, unspecified Plan: increase lunesta to 2 mg daily (4) EMMANUEL on CPAP: Code(s): G47.33 - Obstructive sleep apnea (adult) (pediatric) Category: Medical Plan: Following with sleep Medicine (5) Right knee pain: Code(s): M25.561 - Pain in right knee Category: Medical Plan: X-ray ordered. Referral to ortho Orders: Orders XR knee RT 2V Today M25.561 - Pain in right knee, M25.562 - Pain in left knee AMB Hemoglobin A1c Today E11.9 - Type 2 diabetes mellitus without complications Referrals Orthopedics Referral M25.561 - Pain in right knee Medications: New eszopiclone (Lunesta) 2 mg PO BEDTIME 30 days 30 tabs 5RF
[2025-02-22 08:27] VITALS: BP 126/70; PULSE 64; RESP 14; O2SAT 98; BMI 28.7
== END 2025-02-22 09:16 | disposition home or self-care (01) ==
LOC: HO.HMCFM 08:18
PROVIDERS: PCP Physician Assistant; Visit Provider Physician Assistant
DX: E11.9 Type 2 diabetes mellitus without complications (principal); E55.9 Vitamin D deficiency, unspecified; G47.00 Insomnia, unspecified; G47.33 Obstructive sleep apnea (adult) (pediatric); M25.561 Pain in right knee

== ENCOUNTER → 2025-02-22 08:17 | Outpatient (BNVA) | payer OTHER, SELFPAY | PROVIDERS: PCP Physician Assistant; Visit Provider Physician Assistant | DX: E11.9 Type 2 diabetes mellitus without complications (principal); E55.9 Vitamin D deficiency, unspecified; G47.00 Insomnia, unspecified; G47.33 Obstructive sleep apnea (adult) (pediatric); M25.561 Pain in right knee; Z71.3 Dietary counseling and surveillance | CPT/HCPCS: 83036; 96127; 97803 ==

== ENCOUNTER 2025-02-22 11:00 | Outpatient (AMB) | payer OTHER, SELFPAY ==
[2025-02-22 11:18] VITALS: BMI 28.7
--- NOTE | 2025-02-22 11:18 | A.OFFVIS_ITS ---
VS Expanded 02/22/25 11:18 Height 5 ft 7 in Weight 183 lb BMI 28.7 Intake Visit Reasons: T2DM Allergies No Known Allergies Allergy (Verified 02/22/25 08:25) Nutrition Presentation Details: Pt presents for MNT f/u for T2DM Pt has hx of crohn's disease, reports working on diet modifications, reducing sugars and denies GI flares Noted A1c at 6.2% (01/2025) from 6.8% (10/2024), 10 lb wt loss BS Monitoring Most Recent Diabetes Results: No Data to Display PFSH Medical History Erectile dysfunction Incisional hernia of anterior abdominal wall without obstruction or gangrene Elevated PSA Crohn disease EMMANUEL on CPAP Insomnia Family History Mother Alcoholism Father Alcoholism Sister Alcoholism Brother Alcoholism Other Substance use Social History (Updated 02/22/25 @ 08:33 by Gerda Yadav [facility]) Housing: House Alcohol intake: current Patient Tobacco Use Status: Former Tobacco user Cigarette Packs Per Day: 1 Years Smoked: 20, quit 45 years ago e-Cigarette/Vaping Use: Never Used Second Hand Smoke Exposure: No service: Yes Current occupational status: employed 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 Current occupational exposures/hazards: No Cognitive needs: No Hearing needs: No Vision needs: No Assessment & Plan Assessment & Plan (1) Type 2 diabetes, diet controlled: Code(s): E11.9 - Type 2 diabetes mellitus without complications Category: Medical Plan: Wt: 87 Kg ( 01/19 ), 83 kg (02/18) Est kcal needs as per MSJ: 9295-7410 (40% carb, 30% protein/fat) Est fluid needs as per 25-30 ml/d: 2600 Est prot per day as per 1 g/kg bw: 87 Recommend fiber intake : 8-10 g per day and gradually increase to 25-28 g per day for women and 35-38 g for men or as tolerated Recommend sodium intake per day : less than 2000 mg Educated patient on: ( R = reviewed V = verbalizes understanding N/R = needs review N/A = not applicable * Food sources of carbohydrate, adequate serving sizes and its role in various health conditions: R * Differences between complex carbohydrates a simple carbohydrates, role of fiber in diet: R V N/R * Lean protein sources of foods: R * Differences between types of fats and role in diet (mono on saturated fat fatty acids, saturated fatty acids, trans fats): R V N/R * Food sources of sodium in salt and healthy modifications for heart health in kidney health: R V R/V * Vitamins and minerals: R , vit D * Healthy plate method concept: R V * Physical activity: Benefits a precaution: R V * Hypoglycemia protocol (rule of 15): R V N/R * Dietary prevention of Hyperglycemia: R * Sugar alcohol precaution: R * REVIEW Natural gluten free food options related to Crohns disease Patient Instructions: Include food sources of vitamin D : lactose free milk, fish , eggs with yolk, fortified tofu/cereals Include 2-3 serving/daily Coding Level of Care Code Nutr Indiv Subseq (93368) Diagnoses Type 2 diabetes, diet controlled E11.9 Time Spent (min) 30
== END 2025-02-22 14:29 | disposition home or self-care (01) ==
LOC: HO.ENCR 11:01
PROVIDERS: PCP Physician Assistant; Visit Provider Dietitian, Registered
DX: E11.9 Type 2 diabetes mellitus without complications (principal)

== ENCOUNTER 2025-02-28 15:34 | Outpatient (REF) | payer OTHER, SELFPAY ==
--- NOTE | ~2025-02-28 | XR_ITS ---
EXAMINATION: XR KNEE, RIGHT CLINICAL INFORMATION: M25.561 - Pain in right knee COMPARISON: None available. TECHNIQUE: Two views of the right knee. FINDINGS: No fracture, dislocation, or suspicious bone lesion. There is a small osteochondroma arising from the medial metadiaphysis of the femur. There is moderate to severe medial compartment, and moderate lateral and patellofemoral compartment joint space narrowing, with mild osteophytic marginal spurring. There is spurring of the tibial spines. There is normal alignment of the knee. There is a small superior patellar enthesophyte present. There is no significant joint effusion. There is mild prepatellar soft tissue swelling. This may relate to bursitis. XR/XR knee RT 2V IMPRESSION: 1. Tricompartmental osteoarthritis, moderate to severe in the medial compartment. 2. Small osteochondroma arising from the medial metadiaphysis of the femur. 3. No significant joint effusion. 4. Mild prepatellar soft tissue swelling, may relate to bursitis. Electronically signed by: Porfirio Salinas MD 03/01/2025 10:06 AM EDT
--- OUTSIDE RECORDS SUMMARY | 2025-02-28 15:42 | XMS_ITS | Data Portability ---
Author Organization [place] - [facility], Allergy Address [address] [place] [id number] Care Team Providers Care Maintenance Supervisor Mechanical Name Role Phone LORENZO BLOOM Primary Care Provider LORENZO BLOOM Referring Provider Assessment Encounter Date Assessment Date Assessment LastModified [...] when sleeping. All questions were answered today. Not available 01/19/2025 10:28:12 Plan of Treatment [...] Sensorineur al hearing loss of bilateral ears [id number] Active 2024 RUSTY DOWNING [address] [facility],[address] [address], [place], [phone], [facility] - [facility] 10:10:08 Bilateral tinnitus [id number] Active 2024 BRODERICK DAILEY PA-C [address] [address], [place], [phone], [facility] - [facility] 10:28:16 Problem Notes None recorded. Procedures Surgical History Date Name Laterality Status Provider Name and Address Organization Details Recorded Time 01/19/2025 Comp Audio with Tymps - 28480 & 42219 completed RAFARUSTY MONTENEGRO [address] [facility],[address], [address], [facility] 01/19/2025 10:09:55 Imaging Results None recorded. Procedure [...] Not Available No t Available amoxicillin 875 mg-potleobardoiu m clavulanate 125 mg tablet TAKE 1 [...] Updated DateTime 01/19/2025 172.72 cm 28.9 kg/m2 20131.55 g RENETTA MONTOYA [place] - [facility] 01/19/2025 10:17:20 Social History None recorded. Functional Status Question Answer Note LastModified by Organization D etails LastModified Time What is your level of alcohol consumption? None ccomi Information not available 01/19/2025 Mental Status None recorded. Family History Nothing Reported. Medical History No medical history recorded. Past Encounters Encounter ID Performer Location Encounter Start Date Encounter Closed Date Diagnosis/Indication Diagnosis SNOMED-CT Code Diagnosis ICD10 Code Diagnosis Note [id number] BRODERICK DALIEY PA-C [facility] [address] [place] [address] 01/19/2025 09:42:10 01/19/2025 10:26:12 Sensorineural hearing loss of bilateral ears [id number] H90.3 Audiologic al evaluation results: Right ear: Normal hearing he aring. slo ping to a mild slopi ng to a moderate s loping to moderately severe slo ping to severe slo ping to profound f lat high frequency low frequency mid frequency cookie bite temple curve hear ing with the exception of a mild SNHL at 4000Hz with excellent word recognitio n. Left ear: Normal Nor mal through 2 kHz Mild M oderate Mo derately-s evere Chela re Profoun d Borderli ne normal sloping to a mild sensorineu ral hearing loss with excellent word recognitio n. Tympanomet ry: Right Ear:Type A Left Ear:Type A Bilateral tinnitus 39395 87682 102 H93.13 Health Concerns Section Related Observation LastModified by Organization Detai ls LastModified Time None Recorded Concern Status LastModified by Organization Details LastModified Time None Recorded Advance Directives Directive None Recorded Payers Insurance Date Sequence Insurance Name Policy Number Policy Tiwari Covered Member ID Tiwari Member ID Guarantor Name 01/24/2025 1 [facility] [id number] Suraj Loomis [id number] Suraj Loomis Notes Date Note Type Note [...] No reports of vertigo. BRODERICK DAILEY PA-C [address] [place] [address], [phone], [facility] - [facility] 01/19/2025 10:28:44
== END 2025-02-28 15:35 | disposition home or self-care (01) ==
LOC: HO.XRAY 15:34
PROVIDERS: PCP Physician Assistant; Visit Provider Physician Assistant
DX: M25.561 Pain in right knee (principal); M25.562 Pain in left knee; M17.0 Bilateral primary osteoarthritis of knee
CPT/HCPCS: 73560

== ENCOUNTER → 2025-02-28 15:37 | Outpatient (BNV) | payer OTHER, SELFPAY | PROVIDERS: PCP Physician Assistant; Visit Provider Radiology Diagnostic Radiology | DX: M17.11 Unilateral primary osteoarthritis, right knee (principal); D16.20 Benign neoplasm of long bones of unspecified lower limb | CPT/HCPCS: 73560 ==

== ENCOUNTER 2025-04-09 08:47 | Outpatient (AMB) | payer OTHER, SELFPAY ==
[2025-04-09 08:52] VITALS: BP 116/78; PULSE 63; BMI 26.9
--- NOTE | 2025-04-09 08:52 | A.OFFVIS_ITS ---
Vital Signs 04/09/25 08:52 Height 5 ft 7 in Weight 171 lb 15.369 oz BMI 26.9 BP 116/78 Blood Pressure Location Lt brachial Position Sitting Pulse 63 Intake Visit Reasons: SHANKER OUT/Zhang/Chest Pain Intake Note: New patient feeling good Classroom Instructional Aide Required: No Allergies No Known Allergies Allergy (Verified 02/22/25 08:25) Medication List - Last Reconciled 04/09/25 by aIn Gaming MD blood sugar diagnostic (FreeStyle Lite Strips) Use daily As directed to check blood glucose blood-glucose meter (FreeStyle Lite Meter kit) Use daily As directed to check blood sugars cholecalciferol (vitamin D3) 25 mcg PO DAILY eszopiclone (Lunesta) 2 mg PO BEDTIME 30 days lancets (FreeStyle Lancets) use daily as directed to check blood glucose ustekinumab (Stelara) mg subcut HPI Comments Details: Thank you for referring Suraj in cardiology consultation today. He is a pleasant 69-year-old male with prior history of Crohn's disease, impaired fasting glucose who has been having shortness of breath on exertion. He is referred here for further cardiovascular risk stratification. He said he does get short of breath when he exerts himself although he says last many years he has been living a sedentary lifestyle he has not been exercising much. Most recently after meeting with you he has been motivated and has been modifying his lifestyle. He said he has modified his diet significantly and has lost 20 lb in his last 4 months. He has also started to walk more although he walks about 2 miles and takes about hour and half. He said he does get short of breath when he over exerts himself. No exertional chest pain. No orthopnea, PND, leg edema. Underwent echocardiogram in September which was within normal limits. A stress test however was only moderate exercise capacity but negative for ischemia but showed frequent PVCs. He has no prolonged palpitation or irregular heartbeat. [facility] Medical History Erectile dysfunction Incisional hernia of anterior abdominal wall without obstruction or gangrene Elevated PSA Crohn disease EMMANUEL on CPAP Insomnia Surgical History Hx of knee surgery History of partial surgical removal of colon Family History Mother Alcoholism Father Alcoholism Sister Alcoholism Brother Alcoholism Other Substance use Social History Housing: House Alcohol intake: current Patient Tobacco Use Status: Former Tobacco user Cigarette Packs Per Day: 1 Years Smoked: 20, quit 45 years ago e-Cigarette/Vaping Use: Never Used Second Hand Smoke Exposure: No service: Yes Current occupational status: employed 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 Current occupational exposures/hazards: No Cognitive needs: No Hearing needs: No Vision needs: No Review of Systems Const Denies chills, Denies daytime sleepiness, Denies fatigue, Denies fever(s), Denies frequent falls, Denies poor appetite, Denies snoring, Denies stops breathing during sleep, Denies weakness, Denies weight gain and Denies weight loss Eyes Denies loss of vision ENT Denies dizziness and Denies hearing loss Card Denies chest pain, Denies claudication, Denies leg edema, Denies lightheadedness, Denies palpitations, Denies dyspnea, Denies dyspnea on exertion and Denies orthopnea Resp Denies cough, Denies excessive phlegm production, Denies dyspnea, Denies dyspnea on exertion, Denies snoring and Denies wheezing GI Denies abdominal pain, Denies hematochezia, Denies change in bowel habits, Denies nausea and Denies vomiting Denies dysuria and Denies urinary frequency Musc Denies arthralgias, Denies muscle weakness, Denies numbness and Denies other (frequent falls) Skin/Breast Denies nail changes and Denies rash Neuro Denies Abnormal speech present, Denies dizziness, Denies frequent falls, Denies loss of vision, Denies memory loss, Denies numbness and Denies weakness Psych Denies depression and Denies memory loss Endo Denies fatigue and Denies palpitations Chris/Lymph Reports easy bruising and Reports other (anemia) Aller/Immun Denies wheezing Physical Exam Vital Signs: Last Vital Signs Pulse 63 04/09/25 08:52 BP 116/78 04/09/25 08:52 BMI result Body Mass Index 26.9 Const General: cooperative, comfortable, no acute distress, alert and awake Nutritional Appearance: overweight Orientation/consciousness: patient oriented x3 Limitations: no limitations HEENT Head: Yes normocephalic and Yes atraumatic Neck Neck: Yes trachea midline, Yes supple and Yes no JVD Resp Effort & Inspection: normal respiratory effort Auscultation: clear to auscultation bilaterally Cardio Jugular venous distension: no JVD Palpation: normal PMI Rate: regular rate Rhythm: regular rhythm Heart sounds: S1 normal heart sound present, S2 normal heart sound present, no click, no gallops, no murmurs and no rubs GI Auscultation: normal bowel sounds Skin General skin exam: no rashes or lesions noted Neuro General: patient oriented x3 and no focal motor deficits Speech: No Abnormal speech present Extrem General: Yes no clubbing, cyanosis or edema Psych Appearance: grossly normal Office Procedures EKG Details: EKG shows normal sinus rhythm with normal EKG 55790-Gspwrlmggvkkwagnh, Complete Assessment & Plan Assessment & Plan (1) TAVERAS (dyspnea on exertion): Code(s): R06.09 - Other forms of dyspnea Category: Medical Plan: Dyspnea on exertion this elderly gentleman with impaired fasting glucose who has now improved his lifestyle has significant amount of weight loss over the last 4 months. He denies any chest pain. Recommend to further screen given that his stress test at moderate workload shows no ischemia although shows evidence of some PVCs. He also has normal echocardiogram. I would suggest him to undergo coronary calcium score for further screening for atherosclerotic disease. Further treatment based on the findings. Also recommend him to have a fasting lipid panel along with CRP as well as lipoprotein a and apolipoprotein B management. He is encouraged to continue to participate in regular physical activity and increase is aerobic tolerance. He shows understanding. Pathophysiology of atherosclerosis and possible outcome related to calcium score testing was discussed with him. Further treatment options based on the findings and rationale was discussed. He understands. Will follow up in the clinic in 3 months time, sooner p.r.n.. Thank you for allowing me to partake in his care Orders: Orders CT Coronary Calcium Score 1 Week R06.09 - Other forms of dyspnea CRP High Sensitivity Today R06.09 - Other forms of dyspnea Apolipoprotein B Today R06.09 - Other forms of dyspnea Lipoprotein A Today R06.09 - Other forms of dyspnea Lipid Panel Today R06.09 - Other forms of dyspnea Coding Level of Care Code New Pt Level 4 (81780) Complex EM visit Add On G2211 Diagnoses TAVERAS (dyspnea on exertion) R06.09 CPT Codes EKG - CPT: 81365-Sqazvtycrtcwzlewy, Complete ([id number])
--- OUTSIDE RECORDS SUMMARY | 2025-04-09 08:55 | XMS_ITS | Data Portability ---
Author Organization [place] - [facility], Allergy Address [address] [place] [phone] Care Team Providers Care Investor Relations Manager Name Role Phone LORENZO BLOOM Primary Care [...] when sleeping. All questions were answered today. [email or web address] Not available 01/19/2025 10:28:12 Plan of Treatment [...] Sensorineur al hearing loss of bilateral ears [id number] Active 2024 RAFA ALVARES , RUSTY [address] [facility],[place] [address], [place], [phone], [facility] 10:10:08 Bilateral tinnitus 1448874458713 Active 2024 BRODERICK DAILEY PA-C [address] [facility],[place] [address], [place], [address], [facility] - [facility] 10:28:16 Problem Notes None recorded. Procedures Surgical History Date Name Laterality Status Provider Name and Address Organization Details Recorded Time 01/19/2025 Comp Audio with Tymps - 62666 & 14091 completed RUSTY DOWNING [address] [facility],[address], [address], [facility] 01/19/2025 10:09:55 Imaging Results None recorded. Procedure [...] Updated DateTime 01/19/2025 172.72 cm 28.9 kg/m2 56350.55 g [facility] 01/19/2025 10:17:20 Social History None recorded. Functional [...] SNOMED-CT Code Diagnosis ICD10 Code Diagnosis Note [id number] BRODERICK DAILEY PA-C [facility] [address] [place] [address] 01/19/2025 09:42:10 01/19/2025 10:26:12 Sensorineural hearing loss of bilateral ears 409446152 H90.3 Audiologic al evaluation results: Right ear: Normal hearing with the exception of a mild SNHL at 4000Hz with excellent word recognitio n. Left ear: Borderline normal sloping to a mild sensorineu ral hearing loss with excellent word recognitio n. Tympanomet ry: Right Ear:Type A Left Ear:Type A Bilateral tinnitus 79730 84837 102 H93.13 Health Concerns Section Related Observation LastModified by Organization Detai ls LastModified Time None Recorded Concern Status LastModified by Organization Details LastModified Time None Recorded Advance Directives Directive None Recorded Payers Insurance Date Sequence Insurance Name Policy Number Policy Tiwari Covered Member ID Tiwari Member ID Guarantor Name 01/24/2025 1 [facility] [id number] Suraj Loomis [id number] Suraj Loomis Notes Date Note Type Note [...] No reports of vertigo. BRODERICK DAILEY PA-C [address] [place] [address], [phone], [facility] - [facility] 01/19/2025 10:28:44
--- OUTSIDE RECORDS SUMMARY | 2025-04-09 08:55 | XMS_ITS | Clinical Summary ---
Author Organization [facility] Address [address] [place] [address] Care Team Providers Care Binder Technician Name Role Phone Pcp, No Primary Care [...] 106 12/17/2020 10:27 AM EDT Temperature 36.6 C (97.9 F) 12/17/2020 10:27 AM EDT Respiratory Rate - - Oxygen Saturation 97% [...] Zoster (Shingles) Vaccine (1 of 2) 2006 COVID-19 Vaccine (1 - 2023-2 5 season) 2024 Influenza Vaccine 04/27/2025 RSV Vaccine 60 years and old er and Patients (1 - 1-dose 75+ series) 11/26/2031 Hepatitis B Vaccines Aged Out No long er eligible based on patient's age to complete this topic Insurance [facility] Care Teams Binder Technician Relationship Specialty Start Date End Date Pcp, No [address] [place] [facility] [address] PCP - General 12/17/20
== END 2025-04-09 09:24 | disposition home or self-care (01) ==
LOC: HO.HCS 08:48
PROVIDERS: PCP Physician Assistant; Visit Provider Internal Medicine Cardiovascular Disease
DX: R06.09 Other forms of dyspnea (principal)
CPT/HCPCS: 93010; 99204

== ENCOUNTER → 2025-04-09 08:47 | Outpatient (BNVA) | payer OTHER, SELFPAY | PROVIDERS: PCP Physician Assistant; Visit Provider Internal Medicine Cardiovascular Disease | DX: R06.09 Other forms of dyspnea (principal) | CPT/HCPCS: 93005 ==

== ENCOUNTER 2025-04-19 14:13 | Outpatient (AMB) | payer OTHER, SELFPAY ==
--- OUTSIDE RECORDS SUMMARY | 2025-04-19 14:17 | XMS_ITS | Encounter Summary ---
Author Organization [facility] Address [address] [place] [address] Phone Care Team Providers Care Wildlife Ecologist Name Role Phone Debbie Cheatham MD Primary Care Provider + Maxine Machuca MD Primary Care Provider [phone] Melisa Zhang Primary Care Provider [phone]- [phone] Encounter Details Date Type Department Care Team (Late st Contact Info) Description 06/23/2021 Procedure Pass [facility] 4 ENDO DEPT [address] [facility], 4th [place] [address] Social History Tobacco Use Types Packs/Day Years Used Date Smoking Tobacco: Never Smokeless Tobacco: Never Alcohol Use Standard Drinks/Week Comments Not Currently 0 (1 standard drink = 0.6 oz pur e alcohol) Comments Unknown Sex and Gender Information Value Date Recorded Sex Assigned at Choose not to disclose 8:09 AM EDT Legal Sex Male 8:07 AM EDT Gender Identity Male 04/16/2021 8:09 AM EDT Sexual Orientation Choose not to disclose 2020 8:09 AM EDT documented as of this encounter Plan of Treatment Not on file documented as of this encounter Visit Diagnoses Not on filedocumented in this encounter Additional Health Concerns Infection Onset Date Last Indicated Resolved Time CoV-Risk 08/08/2024 08/08/2024 08/19/2024 1:22 AM EST documented as of this encounter Care Teams Wildlife Ecologist Relationship Specialty Start Date End Date Debbie Cheatham MD [email or web address] PCP - General Family Medicine 04/16/21 04/21/22 Maxine Machuca MD PCP - General Internal Medicine 04/22/22 09/20/23 Melisa Zhang PA PCP - General Physician Distribution Driver 09/21/23 documented as of this encounter Additional Source Comments The information contained in this document represents components of the legal health record. It is not the complete legal health record.[facility]
--- OUTSIDE RECORDS SUMMARY | 2025-04-19 14:17 | XMS_ITS | Data Portability ---
Author Organization [place] - [facility], Allergy Address [address] [place] [phone] Care Team Providers Care Aircraft Instrument Engineer Name Role Phone LORENZO BLOOM Primary Care Provider LORENZO BLOOM Referring Provider [phone] Assessment Encounter Date Assessment Date Assessment LastModified [...] Sensorineur al hearing loss of bilateral ears [id number] Active 2024 RAFA ALVARES , RUSTY [address] [facility],[place] [address], [place], [address], [facility] 10:10:08 Bilateral tinnitus 5245181453055 Active 2024 BRODERICK DAILEY PA-C [address] [facility],[place] [address], [place], [address], [facility] - [facility] 10:28:16 Problem Notes None recorded. Procedures Surgical History Date Name Laterality Status Provider Name and Address Organization Details Recorded Time 01/19/2025 Comp Audio with Tymps - 49649 & 17808 completed RUSTY DOWNING [address] [facility],[address], [address], [facility] 01/19/2025 10:09:55 Imaging Results None recorded. Procedure [...] Updated DateTime 01/19/2025 172.72 cm 28.9 kg/m2 43416.55 g [facility] 01/19/2025 10:17:20 Social History None recorded. Functional [...] SNOMED-CT Code Diagnosis ICD10 Code Diagnosis Note [id number] BRODERICK DAILEY PA-C [facility] [address] [place] [address] 01/19/2025 09:42:10 01/19/2025 10:26:12 Sensorineural hearing loss of bilateral ears 229437165 H90.3 Audiologic al evaluation results: Right ear: Normal hearing with the exception of a mild SNHL at 4000Hz with excellent word recognitio n. Left ear: Borderline normal sloping to a mild sensorineu ral hearing loss with excellent word recognitio n. Tympanomet ry: Right Ear:Type A Left Ear:Type A Bilateral tinnitus 42197 72038 102 H93.13 Health Concerns Section Related Observation LastModified by Organization Detai ls LastModified Time None Recorded Concern Status LastModified by Organization Details LastModified Time None Recorded Advance Directives Directive None Recorded Payers Insurance Date Sequence Insurance Name Policy Number Policy Tiwari Covered Member ID Tiwari Member ID Guarantor Name 01/24/2025 1 [facility] [id number] Suraj Loomis [id number] Suraj Loomis Notes Date Note Type Note [...] No reports of vertigo. BRODERICK DAILEY PA-C [address] [place] [address], [phone], [facility] - [facility] 01/19/2025 10:28:44
--- OUTSIDE RECORDS SUMMARY | 2025-04-19 14:17 | XMS_ITS | Clinical Summary ---
Author Organization [facility] Address [address] [place] [address] Care Team Providers Care Boat Oar Maker Name Role Phone Pcp, No Primary Care [...] patient's age to complete this topic Insurance [facility] Care Teams Boat Oar Maker Relationship Specialty Start Date End Date Pcp, No [address] [facility] [address] PCP - General 12/17/20
--- NOTE | 2025-04-19 15:00 | A.OFFVIS_ITS ---
Vital Signs 04/19/25 15:01 Height 5 ft 7 in Weight 168 lb 8 oz BMI 26.4 BP 116/70 Blood Pressure Location Rt brachial Pulse 67 Pulse Source Pulse Oximeter Pulse Oximetry (%) 98 Oxygen Delivery Method Room Air Intake Visit Reasons: 3 mnts f/u appt Intake Note: Patient presents follow up EMMANUEL medication. Accompanied by: Self / Same As Patient Allergies No Known Allergies Allergy (Verified 04/19/25 15:04) Medication List - Last Reconciled 04/19/25 by KERI Pa blood sugar diagnostic (FreeStyle Lite Strips) Use daily As directed to check blood glucose blood-glucose meter (FreeStyle Lite Meter kit) Use daily As directed to check b lood sugars cholecalciferol (vitamin D3) 25 mcg PO DAILY eszopiclone (Lunesta) 3 mg PO BEDTIME PRN 30 days lancets (FreeStyle Lancets) Once daily as directed to check blood glucose ustekinumab (Stelara) mg subcut HPI Comments Details: 69-yr-old male presents for follow-up visit of sleep apnea. Patient was last seen by Lashay PEARSON. Pt denies any significant interval medical history changes. Though he has started to eliminate sugars/carbs to improve his blood sugar control and promote weight loss- which has been helpful so far. Since the last visit, patient underwent 12/20/2024, home sleep study, which revealed mild EMMANUEL with AHI 13 per hour, O2 bernardino 84%, average SpO2 93% with SpO2 under 88% x1 0.2 minutes. Pt reports that after starting Lunesta 1mg, it was helpful for a few months, but then the effect waned so his PCP increased the dose to 2mg. May take w/ Benadryl 50mg. Prior to this he took Advil PM 2 caps qhs, and Ambien. It may take him 1-1.5 hours to fall asleep after going to sleep. Most often he gets about 5 hours of sleep a night. 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 Denies parasomnias. Has had recent onset of nocturia n the last 6-8 weeks- now needing to void 1-2 x's per night. Coffee: 1-2 cups in the am Exercise: none, but is physically active at work Bedroom: dark, uses a fan for white noise or a fan rayna on his phone when traveling, sleeps in cool environment. He states he has been having difficulties using his old Resmed CPAP. He notes that Resmed stopped making his old pillow mask, and does not find the new mask as comfortable. However, he also notes that he has been using CPAP for so long, that he does not feel he can sleep without it. [facility] Medical History Erectile dysfunction Incisional hernia of anterior abdominal wall without obstruction or gangrene Elevated PSA Crohn disease EMMANUEL on CPAP Insomnia Surgical History Hx of knee surgery History of partial surgical removal of colon Family History Mother Alcoholism Father Alcoholism Sister Alcoholism Brother Alcoholism Other Substance use Social History Housing: House Alcohol intake: current Patient Tobacco Use Status: Former Tobacco user Cigarette Packs Per Day: 1 Years Smoked: 20, quit 45 years ago e-Cigarette/Vaping Use: Never Used Second Hand Smoke Exposure: No service: Yes Current occupational status: employed 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 Current occupational exposures/hazards: No Cognitive needs: No Hearing needs: No Vision needs: No Physical Exam Vital Signs: Last Vital Signs Pulse 67 04/19/25 15:01 BP 116/70 04/19/25 15:01 Pulse Ox 98 04/19/25 15:01 Oxygen Delivery Method Room Air 04/19/25 15:01 BMI result Body Mass Index 26.4 Const General: no acute distress Orientation/consciousness: patient oriented x3 Resp Effort & Inspection: normal respiratory effort and able to speak in complete sentences Neuro General: patient oriented x3 Psych Mental Status: mental status grossly normal Speech and movement: Clear speech present Attitude: cooperative Assessment & Plan Assessment & Plan (1) EMMANUEL on CPAP: Code(s): G47.33 - Obstructive sleep apnea (adult) (pediatric) Category: Medical (2) Insomnia: Code(s): G47.00 - Insomnia, unspecified Category: Medical Qualifiers: Insomnia type: unspecified Qualified Code(s): G47.00 - Insomnia, unspecified (3) Nocturia: Code(s): R35.1 - Nocturia Category: Medical Plan For EMMANUEL: Reviewed results of sleep study report, results c/w mild obstructive sleep apnea. Confirmed with regional home care- Patient received his last CPAP in May 2022. He won?t be eligible for a replacement machine until May 2027 Continue CPAP nightly > 4 hours, as pt continues to have good clinical effect from use. * Asked to give his CPAP SD card to [facility], so that we can review compliance data. * As increasing nocturia maybe related to BPH, it may also be a sign of undertreated sleep apnea. * Clean CPAP machine and supplies routinely. * Change CPAP supplies routinely. * Advised to check the [employer] official website to view current available mask options * Use distilled water in CPAP water reservoir. * Pt to contact us or respiratory company with any questions or concerns. For insomnia: Trial increasing Lunesta from 2 mg daily at bedtime to 3 mg daily at bedtime. * Reviewed possible side effects, including parasomnias * Patient advised to notify us with any occurrence of parasomnias or other side effect. Reviewed general sleep education principles, including simple strategies to optimize sleep hygiene and sleep quality. * One area that patient may specifically benefit from, is increasing regular physical activity. * List of sleep resources shared w/pt, such as the Sleep Unplugged podcast by Dr. Nigel Rosado. * A cognitive behavioral therapy for insomnia Rayna, which may be also be beneficial for this patient: * CBT-I Mechanical Supervisor Rayna- free from the [facility] * https://mobile.[employer].gov/rayna/cbt-i-process coach * As patient has history of service, encouraged patient to reach out to the [facility] to see you if he is a candidate to receive VA services, including cognitive behavioral therapy specific for veterans. Pt to follow-up in 4-6 months with Lashay PEARSON or sooner prn. Medications: New eszopiclone (Lunesta) 3 mg PO BEDTIME PRN 30 tabs 3RF insomnia 30 days G47.00 - Insomnia, unspecified Discontinued eszopiclone (Lunesta) Discontinued Reason: Doctor's Order 2 mg PO BEDTIME 30 days 30 tabs 5RF Coding Level of Care Code Est Pt Level 4 (70958) Diagnoses EMMANUEL on CPAP G47.33 Insomnia, unspecified type G47.00 Insomnia type: unspecified Nocturia R35.1
[2025-04-19 15:01] VITALS: BP 116/70; PULSE 67; O2SAT 98; BMI 26.4
== END 2025-04-19 15:49 | disposition home or self-care (01) ==
LOC: HO.HSMS 14:14
PROVIDERS: Absent Provider Nurse Practitioner Family; PCP Physician Assistant; Supervising Provider Nurse Practitioner Family; Visit Provider Physician Assistant Medical
DX: G47.33 Obstructive sleep apnea (adult) (pediatric) (principal); G47.00 Insomnia, unspecified; R35.1 Nocturia
CPT/HCPCS: 99214

== ENCOUNTER 2025-05-19 07:39 | Outpatient (REF) | payer OTHER, SELFPAY ==
--- OUTSIDE RECORDS SUMMARY | 2025-05-19 07:42 | XMS_ITS | Clinical Summary ---
Author Organization [facility] Address [address] [place] [address] Care Team Providers Care Keno Attendant Name Role Phone Pcp, No Primary Care [...] patient's age to complete this topic Insurance [facility] [place] Care Teams Keno Attendant Relationship Specialty Start Date End Date Pcp, No [address] [facility] [address] PCP - General 12/17/20
[2025-05-19 08:08] LABS: MANUAL DIFF FLAG NO
[2025-05-19 08:50] LABS: Hematocrit 49.1 % (42.0-52.0); Hemoglobin 16.0 g/dl (14.0-18.0); Imm Gran Abs Auto 0.02 X10*3/uL (0.00-0.03); Imm Gran Pct Auto 0.3 % (0.0-0.4); Lymphocytes Absolute Auto 1.5 X10*3/uL (1.2-4.9); Mean Corpuscular HGB Conc 32.6 g/dl (31.0-36.0); Mean Corpuscular Hemoglobin 30.5 pg (27.0-33.0); Mean Corpuscular Volume 93.5 fL (80.0-98.0); NRBC Abs Auto 0.000 X10*3/uL (0.0-0.012); NRBC Pct Auto 0.0 /100WBC (0.0-0.2); Platelet Count 230 X10*3/uL (160-400); Red Blood Count 5.25 X10*6/uL (4.60-5.80); White Blood Count 6.9 X10*3/uL (4.8-10.8)
[2025-05-19 08:57] LABS: Hemoglobin A1C 183.6175 umol/L; Total Hemoglobin (HGBA1C) 4201.9803 umol/L
[2025-05-19 09:28] LABS: Alanine Aminotransferase 16 U/L (0-40); Albumin Level 4.4 g/dL (3.5-5.0); Alkaline Phosphatase 69 U/L (39-117); Anion Gap 13 (12-20); Aspartate Amino Transferase 24 U/L (5-37); Blood Urea Nitrogen 22 mg/dL (9-16); Calcium 9.5 mg/dL (8.4-10.2); Carbon Dioxide 25 mmol/L (22-29); Chloride 108 mmol/L (96-108); Cholesterol 147 mg/dL (<200); Estimated Glomerular Filt Rate > 60; HDL Cholesterol 40 mg/dL (>40); Potassium 4.6 mmol/L (3.3-5.1); Sodium 141 mmol/L (135-145); Total Protein 6.9 g/dL (6.5-8.0); Triglycerides 57 mg/dL (<150)
== END 2025-05-19 07:40 | disposition home or self-care (01) ==
LOC: HO.LAB 07:39
PROVIDERS: Absent Provider Internal Medicine Cardiovascular Disease; PCP Physician Assistant; Visit Provider Physician Assistant
DX: E11.9 Type 2 diabetes mellitus without complications (principal); R06.09 Other forms of dyspnea; Z13.0 Encounter for screening for diseases of the blood and blood-forming organs and certain disorders involving the immune mechanism
CPT/HCPCS: 36415; 80053; 80061; 82043; 82172; 82570; 83036; 83695; 84443; 85025; 86141

== ENCOUNTER 2025-05-24 08:36 | Outpatient (AMB) | payer OTHER, SELFPAY ==
--- OUTSIDE RECORDS SUMMARY | 2024-08-08 16:09 | XMS_ITS | Encounter Summary ---
Author Organization [facility] Address [address] [place] [address] Phone Care Team Providers Care Backup Operator Name Role Phone Melisa Zhang Primary Care Provider [phone]- [phone] Encounter Details Date Type Department Care Team (Late st Contact Info) Description 08/08/2024 3:09 PM [facility] Hospital Encounter [facility] [address] [place] [phone] Annika Burnett, SALES OPERATIONS COORDINATOR [address] [place] [address] [email or web address] Social History Tobacco Use Types Packs/Day Years [...] clinician's provided indication for this examination in [facility]:Dyspnea (Shortness of Breath) COMPARISON: None [...] originallycreated by Otf Zapien MD. Annika Burnett SALES OPERATIONS COORDINATOR IMG XR CHEST Final R esult documented in this encounter Visit Diagnoses Not on filedocumented in this encounter Additional Health Concerns Infection Onset Date Last Indicated Resolved Time CoV-Risk 08/08/2024 08/08/2024 08/19/2024 1:22 AM EST documented as of this encounter Care Teams Backup Operator Relationship Specialty Start Date End Date Melisa Zhang PA PCP - General Physician Edge Stainer Machine 09/21/23 documented as of this encounter Additional Source Comments The information contained in this document represents components of the legal health record. It is not the complete legal health record.[facility]
--- OUTSIDE RECORDS SUMMARY | 2025-05-19 23:59 | XMS_ITS | Continuity of Care Document ---
Author Organization [facility] Address [address] [place] [id number]- [facility] Name Relationship Address Phone ARISTIDES KLEIN Personal Relationship Unknown Unageorgette KLEIN, ELA Personal Relationship Unknown Unavai lable ERNIE, ELA Personal Relationship Unknown Unavai lable ERNIE, ARISTIDES Personal Relationship Unknown Unavai lable ERNIE, ARISTIDES Personal Relationship Unknown Unavai lable RAY, ARISTIDES spouse Unknown Unavailable Care Team Providers Care Fashion Design Professor Name Role Phone Melisa Sultana Primary Care Physician [facility])[phone] [facility] Date(s): 04/19/25 - 05/19/25 [facility] [address] [place] [address]- Attending Physician: Admtr, Ar8 Admitting Physician: Admtr, Ar8 Referring Physician: Admtr, Ar8 Encounter Type: Triage Allergies, Adverse Reactions, Alerts No Known Allergies Immunizations Given and Recorded Vaccine Date Status Refusal Reason tetanus/diphtheria/pertussis, acel(Tdap) 12/26/22 Given tetanus/diphtheria/pertussis, acel(Tdap) 07/09/20 Given SARS-CoV-2 (COVID-19) mRNA-1273 vaccine 09/05/21 G iven SARS-CoV-2 (COVID-19) mRNA-1273 vaccine 01/31/21 R ecorded SARS-CoV-2 (COVID-19) mRNA-1273 vaccine 01/06/21 R ecorded SARS-CoV-2 (COVID-19) mRNA-1273 vaccine 01/03/21 R ecorded influenza virus vaccine, inactivated 07/22/17 Give n Medications Azithromycin 5 Day Dose Pack 250 mg oral tablet 1 pack/packet, By Mouth, Once, # 6 tablet, 0 Refills, Soft Stop, 08/11/24 3:02:00 PM EST, Tablet, [id number], Partial fill upon patient request if the prescription is for a schedule II opioiddrug., 170, cm, 08/11/24 14:49:00 EST, Height, 82.3, kg, 05/12/23 7:28:00 EDT, Dry Weight Start Date: 08/11/24 Status: Ordered Quantity: 6.0 Unit: tablet Repeat number: 1 Indications: Acute maxillary sinusitis, unspecified; Golytely - oral powder for reconstitution 240 mL, By Mouth, Every 10 minutes, # 1 each, 0 Refills, Maintenance, 04/19/25 2:16:00 PM EDT, REC Powder, [id number], Partial fill upon patient request if the prescription is for a schedule II opioid drug., 240 mL By Mouth Every 10 minutes, 170, cm, 04/19/25 10:21:00 EDT, Height, 82.3, kg, 05/12/23 7:28:00 EDT, Dry Weight Start Date: 04/19/25 Status: Ordered Quantity: 1.0 Unit: each Repeat number: 1 hydrOXYzine hydrochloride 50 mg oral tablet 1 tablet, By Mouth, Daily at bedtime, PRN NEEDED FOR ANXIETY, # 90 tablet, 3 Refills, Maintenance, 09/03/23 12:10:00 PM EST, [id number], 170, cm, 08/23/23 10:59:00 EST, Height, 82.3, kg, 05/12/23 7:28:00 EDT, Dry Weight Start Date: 09/03/23 Status: Ordered Quantity: 90.0 Unit: tablet Repeat number: 4 Lunesta 2 mg oral tablet 1 tablet = 2 mg, By Mouth, Daily at bedtime, 0 Refills, Maintenance, 04/19/25 10:26:00 AM EDT, Partial fill upon patient request if the prescription is for a schedule II opioid drug. Start Date: 04/19/25 Status: Ordered Repeat number: 1 Medrol 4 mg oral tablet 1 pack/packet, By Mouth, Once, # 21 tablet, 0 Refills, Soft Stop, 08/11/24 3:02:00 PM EST, Tablet, [id number], Partial fill upon patient request if the prescription is for a schedule II opioid drug., 170, cm, 08/11/24 14:49:00 EST, Height, 82.3, kg, 05/12/23 7:28:00 EDT, Dry Weight Start Date: 08/11/24 Status: Ordered Quantity: 21.0 Unit: tablet Repeat number: 1 Indications: Acute maxillary sinusitis, unspecified; Multivitamin Daily, 0 Refills, Maintenance, 09/11/22 1:21:00 PM EST, Partial fill upon patient request if the prescription is for a schedule II opioid drug. Start Date: 09/11/22 Status: Ordered Repeat number: 1 Stelara PFS 90 mg/mL subcutaneous solution 1 mL = 90 mg, Subcutaneous Injection, Every 8 Weeks, # 1 mL, 6 Refills, Maintenance, 09/11/24 7:48:00 AM EST, Solution, [facility], Partial fill upon patient request if the prescription is for a schedule II opioid drug., 170, cm, 08/11/24 14:49:00 EST, Height, 82.3, kg, 05/12/23 7:28:00 EDT, Dry Weight Start Date: 09/11/24 Status: Ordered Quantity: 1.0 Unit: mL Repeat number: 7 Problem List Condition Confirmation Course Effective Dates Status Health St atus Informant Crohn disease Confirmed Active Insomnia Confirmed Active Obesity Confirmed Active EMMANUEL treated with BiPAP Confirmed Active Elevated PSA Confirmed Active Serrated polyp of colon Confirmed 10/13/17 Active Social History Social History Type Response Smoking Status Former smoker, quit more than 30 days ago entered on: 07/20/23 Sex Sex Representation Male (finding) Patient Care team information Care Team Personnel Name: Ekaterina Chiang RN Position: [facility] RN Member Role: Primary Care Nurse Name: Carleen Renteria RN Position: [facility] RN Member Role: Primary Care Nurse Name: Melisa Sultana Position: Reference Physician Member Role: PCP Address: [address] [place] [address]- Telecom: Name: Carleen Alexander RN Position: S RN Member Role: Primary Care Nurse Name: Pk Ghotra RN Position: S RN Member Role: Primary Care Nurse Name: Kathy Suh RN Position: S RN Member Role: Primary Care Nurse Name: Gwendolyn Kaye RN Position: [facility] AMB Nurse Member Role: Primary Care Nurse Name: Brandie Padilla RN Position: S RN Member Role: Primary Care Nurse Name: Arianna Porter RN Position: S RN Member Role: Primary Care Nurse Care Team Related Persons Name: ARISTIDES KLEIN Insurance Providers Guarantor name: ELA KLEIN [employer] Plan Information #: 1 Payer: REY: ADVANCED PAYMENT EXAM Payer Identifier: NA Member Number: [id number] Group Number: NA Subscriber Identifier: [id number] Relationship to Subscriber: self Coverage Type: Other specified but not otherwise classifiable (includes Hospice - Unspecified plan) Coverage Verification Date: NA Telecom: NA Address: [place]
[2025-05-24 08:38] VITALS: BP 114/68; PULSE 58; RESP 14; O2SAT 94; BMI 26.6
--- NOTE | 2025-05-24 08:38 | MHC.PC.OV ---
Vital Signs 05/24/25 08:38 Height 5 ft 7 in Weight 170 lb 2 oz BMI 26.6 BP 114/68 Blood Pressure Location Rt brachial Position Sitting Respiration 14 Pulse 58 Pulse Source Pulse Oximeter Pulse Oximetry (%) 94 Oxygen Delivery Method Room Air Intake Visit Reasons: meds and labs Intake Note: Medication and lab follow up Allergies No Known Allergies Allergy (Verified 04/19/25 15:04) Medication List - Last Reconciled 05/24/25 by Melisa Zhang PA-C atorvastatin (Lipitor) 20 mg PO QPM blood sugar diagnostic (FreeStyle Lite Strips) Use daily As directed to check blood glucose blood-glucose meter (FreeStyle Lite Meter kit) Use daily As directed to check blood sugars cholecalciferol (vitamin D3) 25 mcg PO DAILY eszopiclone (Lunesta) 3 mg PO BEDTIME PRN 30 days lancets (FreeStyle Lancets) Once daily as directed to check blood glucose ustekinumab (Stelara) mg subcut Tobacco use date assessed: 05/24/25 Fall risk assessment: No Falls in past year Last assessed Fall Risk: 05/24/25 Dental Screening Dental Screen Date: 02/22/25 HPI meds and labs HPI Details Patient is a 69-year-old male with a significant past medical history of Crohn's disease, obstructive sleep apnea on CPAP, insomnia and newly diagnosed type 2 diabetes here today for a f/u. Endo: He has a history of diet controlled type 2 diabetes and was recently able to lower his A1c to a 6. This motivated him to work on lifestyle modifications. PULM: He is following with pulmonology for obstructive sleep apnea. He is on Lunesta 3 mg nightly as needed CV: Blood pressure today in the office is 126/70. He had a cardiac workup recently and was noted on his CT to have signs of atherosclerosis and was recommended by Cardiology to start Lipitor 20 mg nightly. He just started this last night. Uro: His last PSA was WNL. Asymptomatic. GI: He followed with colorectal surgery in 2021 after his reversal in April 2022. [facility] Medical History Erectile dysfunction Incisional hernia of anterior abdominal wall without obstruction or gangrene Elevated PSA Crohn disease EMMANUEL on CPAP Insomnia Surgical History Hx of knee surgery History of partial surgical removal of colon Family History Mother Alcoholism Father Alcoholism Sister Alcoholism Brother Alcoholism Other Substance use Social History Housing: House Alcohol intake: current Patient Tobacco Use Status: Former Tobacco user Cigarette Packs Per Day: 1 Years Smoked: 20, quit 45 years ago e-Cigarette/Vaping Use: Never Used Second Hand Smoke Exposure: No service: Yes Current occupational status: employed 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 Current occupational exposures/hazards: No Cognitive needs: No Hearing needs: No Vision needs: No Questionnaire Thrive Questionnaire Date Thrive assessed: 12/07/24 I am a: Patient What is your living situation today?: I choose not to answer this question Within the past 12 months, did the food you bought not last and you didn't have the money to get more?: I choose not to answer this question Within the past 12 months, did you worry whether your food would run out before you got money to buy more?: I choose not to answer this question Do you have trouble paying for medicines?: I choose not to answer this question Do you have trouble getting transportation to medical appointments?: I choose not to answer this question Do you have trouble paying your heating and electricity bill?: I choose not to answer this question Do you have trouble taking care of your child, family member or friend?: I choose not to answer this question Do you have trouble with day-to-day activities such as bathing, preparing meals, shopping, managing finances, etc.?: I choose not to answer this question Are you currently unemployed and looking for a job?: I choose not to answer this question Are you interested in more education?: I choose not to answer this question Please select the resources that you would like help with: None Currently or been in a relationship where the following occur: I choose not to answer THRIVE Score: 0 AUDIT C Alcohol Use Questionnaire (AUDIT-C) 1. How often do you have a drink containing alcohol?: Never 3. How often do you have six or more drinks on one occasion?: Never Total Score: 0 MATA-7 AMB Questionnaire MATA-7 Date MATA - 7 assessed: 12/07/24 Source: Developed by Drs. Bertin Farias, Rita Stewart, Mario Baca and colleagues, with an educational joao from [employer]. Physical exam (Primary Care) Vital Signs: Last Vital Signs Pulse 58 05/24/25 08:38 Resp 14 05/24/25 08:38 BP 114/68 05/24/25 08:38 Pulse Ox 94 05/24/25 08:38 Oxygen Delivery Method Room Air 05/24/25 08:38 BMI result Body Mass Index 26.6 Tobacco/Smoking Status: Tobacco use Status Tobacco use date assessed 05/24/25 05/24/25 08:45 Patient Tobacco Use Status Former Tobacco user 05/24/25 08:45 e-Cigarette/Vaping Use Never Used 05/24/25 08:45 Thrive Assessment: Date of Thrive Assessment Date Thrive assessed 12/07/24 05/24/25 08:45 Currently or been in a relationship where the following occur: I choose not to answer Results Reviewed Results Reviewed: Laboratory Tests 12/07/24 05/19/25 05/19/25 10:34 08:05 08:06 WBC 6.9 RBC 5.25 Hgb 16.0 Hct 49.1 Plt Count 230 Sodium 141 Potassium 4.6 Chloride 108 Carbon Dioxide 25 Anion Gap 13 BUN 22 H Creatinine 1.01 Estimated GFR > 60 Fasting Glucose 127 H Hemoglobin A1c % 6.1 H Triglycerides 57 Cholesterol 147 LDL Cholesterol, Calc 96 HDL Cholesterol 40 L PSA Screen 3.52 Urine Creatinine 107.69 Urine Microalbumin < 5.0 Microalb/Creat Ratio TNP Coding Level of Care Code Est Pt Level 4 (01674) Complex EM visit Add On G2211 Diagnoses Insomnia, unspecified type G47.00 Insomnia type: unspecified Crohn's disease of large intestine without complication K50.10 Digestive disease complication type: without complication Gastrointestinal tract location: large intestine Type 2 diabetes, diet controlled E11.9 CAD (coronary artery disease) I25.10 Assessment & Plan Assessment & Plan (1) Insomnia: Code(s): G47.00 - Insomnia, unspecified Category: Medical Qualifiers: Insomnia type: unspecified Qualified Code(s): G47.00 - Insomnia, unspecified Plan: Continue Lunesta (2) Crohn disease: Code(s): K50.90 - Crohn's disease, unspecified, without complications Category: Medical Qualifiers: Digestive disease complication type: without complication Gastrointestinal tract location: large intestine Qualified Code(s): K50.10 - Crohn's disease of large intestine without complications Plan: Stable (3) Type 2 diabetes, diet controlled: Code(s): E11.9 - Type 2 diabetes mellitus without complications Category: Medical Plan: Very well-controlled (4) CAD (coronary artery disease): Code(s): I25.10 - Atherosclerotic heart disease of [place] coronary artery without angina pectoris Category: Medical Plan: Recently started Lipitor. LDL goal less than 70. He is also going to work on diet modifications. Orders: Orders Comprehensive Met. Panel Today E11.9 - Type 2 diabetes mellitus without complications, G47.00 - Insomnia, unspecified, I25.10 - Atherosclerotic heart disease of [place] coronary artery without angina pectoris, K50.10 - Crohn's disease of large intestine without complications Hemoglobin A1c Today E11.9 - Type 2 diabetes mellitus without complications, G47.00 - Insomnia, unspecified, I25.10 - Atherosclerotic heart disease of [place] coronary artery without angina pectoris, K50.10 - Crohn's disease of large intestine without complications, R73.01 - Impaired fasting glucose Complete Blood Count Auto Diff Today E11.9 - Type 2 diabetes mellitus without complications, G47.00 - Insomnia, unspecified, I25.10 - Atherosclerotic heart disease of [place] coronary artery without angina pectoris, K50.10 - Crohn's disease of large intestine without complications
--- OUTSIDE RECORDS SUMMARY | 2025-05-24 09:17 | XMS_ITS | Clinical Summary ---
Author Organization [facility] Address [address] [place] [id number] Phone Care Team Providers Care Alternative Medicine Practitioner Name Role Phone Melisa Zhang Primary Care Provider [phone] Allergies No known active allergies Medications STELARA 130 mg/26 mL Soln injection 05/02/2021 Active MEN'S MULTI-VITAMIN ORAL 05/12/2021 Active hydrOXYzine (ATARAX) 50 MG tablet Take 50 mg by mouth nightly at bedtime as needed for anxiety. Active traZODone (DESYREL) 100 MG tablet Take 200 mg by mouth. 07/13/2023 Active zolpidem (AMBIEN CR) 12.5 MG CR tablet TAKE 1 TABLET BY MOUTH EVERY NIGHT FOR 30 DAYS 07/09/2024 Active Active Problems Problem Noted Date Diagnosed Date Obstructive sleep apnea syndrome 09/21/2023 Insomnia 09/21/2023 Obesity 09/21/2023 Elevated PSA 09/21/2023 Diabetes mellitus 09/21/2023 Crohn's disease 05/12/2021 Serrated polyp of colon 10/13/2017 Immunizations Immunization Administration Dates Next Due COVID-19 (Pre-07/19) Moderna Vaccine, mRNA, PF 0 01/03/2021 INFLUENZA, SPLIT VIRUS, TRIVALENT W/ PRESERVATIV E IM 07/22/2017 Tdap 07/09/2020 Social History Tobacco Use Types Packs/Day Years [...] not to disclose 2020 8:09 AM EDT Last Filed Vital Signs Vital Sign Reading Time Taken Comments Blood Pressure 134/78 08/08/2024 2:57 PM EST Pulse 72 08/08/2024 2:57 PM EST Temperature 36.1 C (97 F) 08/08/2024 2:57 PM EST Respiratory Rate 17 08/08/2024 2:57 PM EST Oxygen Saturation 99% 08/08/2024 2:57 PM EST Inhaled Oxygen Concentration - - Weight 88.9 kg (196 lb) 08/08/2024 2:57 PM EST Height 172.7 cm (5' 8 ) 08/08/2024 2:57 PM EST Body Mass Index 29.8 08/08/2024 2:57 PM EST Plan of Treatment Health Maintenance Due Date Last Done Comments HEMOGLOBIN A1C 1956 DEPRESSION SCREENING 1968 HEPATITIS C SCREENING 1974 LIPID PANEL 1974 PNEUMOCOCCAL VACCINES (50+ years) (1 of 2 - PCV) 11/26/1975 COLOGUARD 2001 FIT TEST 2001 FOBT 2001 SIGMOIDOSCOPY 2001 VIRTUAL COLONOSCOPY 2001 ZOSTER VACCINES (1 of 2) 2006 DIABETIC EYE EXAM 09/21/2023 URINE MICROALBUMIN/CREATININE RATIO 09/21/2023 COVID-19 VACCINE ( season) 2024 09/05/2021, 01/31/2021, 01/06/2021, Additional history exists BLOOD PRESSURE 02/05/2025 08/08/2024 COLONOSCOPY 06/23/2031 06/23/2021 COLORECTAL CANCER SCREENING 06/23/2031 RSV VACCINE (1 - 1-dose 75+ series) 11/26/2031 Adult Td,Tdap Booster 12/26/2032 12/26/2022, 020 SMOKING STATUS SCREENING (Once After 26 Yrs) Completed 08/08/2024 HEPATITIS A VACCINES Aged Out No long er eligible based on patient's age to complete this topic HIB VACCINES Aged Out No longer eligi ble based on patient's age to complete this topic MENINGOCOCCAL VACCINES (ACWY) Aged Out No longer eligible based on patient's age to complete this topic MENINGOCOCCAL VACCINES (B) Aged Out N o longer eligible based on patient's age to complete this topic Medical Devices Not on file Procedures Procedure Name Priority Date/Time Associated Diagnosis Comments ENDOSCOPY, COLON 06/23/2021 1:12 PM EDT from Last 3 Months or Most Recently Relevant to Health Maintenance Results * ENDOSCOPY, COLON (06/23/2021 1:12 PM EDT) 06/23/2021 1:12 PM EDT Narrative Transcriptions Tanja Astudillo MD - 06/23/2021 1:12 PM EDT Gastrointestinal Endoscopy Unit Patient Name: Suraj Loomis Exam Date: 06/23/2021 1:12 PM Date of : 1955 Admit Type: Outpatient Age: 65 Room: [place] [address] Gender: Male Note Status: Finalized Attending MD: Tanja Astudillo MD Procedure: Colonoscopy Indications: Disease activity assessment of Crohn's disease of the small bowel and colon Providers: Tanja Astudillo MD Referring MD: Debbie Cheatham (Referring MD) Medicines: Midazolam 5 mg IV, Fentanyl 125 micrograms IV Complications: No immediate complications. Procedure: After obtaining informed consent, the endoscope was passed under direct vision. Throughout the procedure, the patient's blood pressure, pulse, and oxygen saturations were monitored continuously. The Colonoscope was introduced through the anus and advanced to the the terminal ileum, with identification of the appendiceal orifice and IC valve. The colonoscopy was performed without difficulty. The quality of the bowel preparation was fair. The patient tolerated the procedure fairly well. Findings: The perianal and digital rectal examinations were normal. The terminal ileum appeared normal for the 5cm visualized. Position was not stable enough to get deep TI biopsies despite multiple attempts. A diffuse area of moderately erythematous, friable (with contact bleeding) and granular mucosa was found in the entire colon, most severe in the right colon. Four biopsies were taken every 10 cm with a cold forceps from the entire colon for Crohn's disease surveillance and dysplasia surveillance. These biopsy specimens were sent to Pathology. Verification of patient identification for the specimen was done. Estimated blood loss was minimal. Impression: - Preparation of the colon was fair. - The examined portion of the ileum was normal. - Erythematous, friable (with contact bleeding) and granular mucosa in the entire examined colon. Biopsied. Recommendation: - Await pathology results. - Return to GI clinic as previously scheduled. Attending Participation: I personally performed the entire procedure. Tanja Astudillo MD, [id number] 06/23/2021 2:46:35 PM Number of Addenda: 0 Note Initiated On: 06/23/2021 1:12 PM Debbie Cheatham MD GI PROCEDURE ORDERABLES Final Result from Last 3 Months or Most Recently Relevant to Health Maintenance Insurance [facility] PPO MEDICARE A CIGNA PPO MEDICARE A CIGNA PPO MEDICARE A CIGNA PPO MEDICARE A CIGNA PPO MEDICARE A CIGNA PPO MEDICARE A Member Subscriber Plan / Payer (Ef fective 2021-Present) Name:VladislavSuraj Member ID:[id number] Relation to Subscriber:Self Name:VladislavSuraj Subscriber ID:[id number] Payer ID:[id number] Group ID:Not on file Type:Medicare Address: [address] CIG[employer] PPO MEDICARE A Member Subscriber Plan / Payer (Ef fective 2021-Present) Name:Suraj Loomis Member ID:[id number] Relation to Subscriber:Self Name:Suraj Loomis Subscriber ID:[id number] Payer ID:[id number] Group ID:Not on file Type:Medicare Address: [address] C[employer] PPO MEDICARE A Member Subscriber Plan / Payer (Ef fective 2021-) Name:VladislavSuraj Member ID:[id number] Relation to Subscriber:Self Name:Suraj Loomis Subscriber ID:[id number] Payer ID:[id number] Group ID:Not on file Type:Medicare Address: [address] C[employer] PPO MEDICARE A Care Teams Alternative Medicine Practitioner Relationship Specialty Start Date End Date Melisa Zhang PA PCP - General Physician Batching Operator 09/21/23 Additional Source Comments The information contained in this document represents components of the legal health record. It is not the complete legal health record.[facility]
--- OUTSIDE RECORDS SUMMARY | 2025-05-24 09:17 | XMS_ITS | Encounter Summary ---
Author Organization [facility] Address [address] [place] [address] Phone Care Team Providers Care Soldering Machine Feeder Name Role Phone Debbie Cheatham MD Primary Care Provider + Maxine Machuca MD Primary Care Provider [phone]- [phone] Melisa Zhang Primary Care Provider [phone]- [phone] Encounter Details Date Type Department Care Team (Late st Contact Info) Description 06/23/2021 Procedure Pass [facility] 4 ENDO DEPT [address] [facility], [address]th [place] [address] Social History Tobacco Use Types Packs/Day Years [...] documented as of this encounter Care Teams Soldering Machine Feeder Relationship Specialty Start Date End Date Debbie Cheatham MD [email or web address] PCP - General Family Medicine 04/16/21 04/21/22 Maxine Machuca MD PCP - General Internal Medicine 04/22/22 09/20/23 Melisa Zhang PA PCP - General Physician Vba Programmer 09/21/23 documented as of this encounter Additional Source Comments The information contained in this document represents components of the legal health record. It is not the complete legal health record.[facility]
--- OUTSIDE RECORDS SUMMARY | 2025-05-24 09:17 | XMS_ITS | Clinical Summary ---
Author Organization [facility] Address [address] [place] [address] Care Team Providers Care Supervisor Car And Yard Name Role Phone Pcp, No Primary Care [...] patient's age to complete this topic Insurance [facility] [place] Teams Supervisor Car And [employer] Relationship Specialty Start Date End Date Pcp, No [address] [place] [address] PCP - General 12/17/20
== END 2025-05-24 09:14 | disposition home or self-care (01) ==
LOC: HO.HMCFM 08:37
PROVIDERS: PCP Physician Assistant; Visit Provider Physician Assistant
DX: G47.00 Insomnia, unspecified (principal); K50.10 Crohn's disease of large intestine without complications; E11.9 Type 2 diabetes mellitus without complications; I25.10 Atherosclerotic heart disease of native coronary artery without angina pectoris

== ENCOUNTER 2025-06-28 09:59 | Outpatient (AMB) | payer OTHER, SELFPAY ==
--- OUTSIDE RECORDS SUMMARY | 2024-08-08 16:09 | XMS_ITS | Encounter Summary ---
Author Organization [facility] Address [address] [place] [phone] Phone Care Team Providers Care Hospitalist Medical Director Name Role Phone Melisa Zhang Primary Care Provider [phone]- [phone] Encounter Details Date Type Department Care Team (Late st Contact Info) Description 08/08/2024 3:09 PM [facility] Hospital Encounter [facility] [address] [place] [id number] Annika Burnett, HISTORICAL INTERPRETER [address] [place] [address] [email or web address] Social History Tobacco Use Types Packs/Day Years [...] with a working camera? Not on file Comments Unknown Sex and Gender Information Value Date Recorded Sex Assigned at Choose not to disclose 8:09 AM EDT Legal Sex Male 8:07 AM EDT Gender [...] clinician's provided indication for this examination in Epic: Dyspnea (Shortness of Breath) COMPARISON: None FINDINGS: [...] clinician's provided indication for this examination in [facility]:Dyspnea (Shortness of Breath) COMPARISON: None FINDINGS: Devices/Tubes/Lines: [...] the report originallycreated by Otf Zapien MD. Annika Burnett HISTORICAL INTERPRETER IMG XR CHEST Final R esult documented in this encounter Visit Diagnoses Not on filedocumented in this encounter Additional Health Concerns Infection Onset Date Last Indicated Resolved Time CoV-Risk 08/08/2024 08/08/2024 08/19/2024 1:22 AM EST documented as of this encounter Care Teams Hospitalist Medical Director Relationship Specialty Start Date End Date Melisa Zhang PA [address] [place] [id number] PCP - General Physician Curing Bin Operator 09/21/23 documented as of this encounter Additional Source Comments The information contained in this document represents components of the legal health record. It is not the complete legal health record.[facility]
--- NOTE | 2025-06-28 10:02 | MHC.PC.OV ---
Vital Signs 06/28/25 10:06 Height 5 ft 7 in Weight 167 lb BMI 26.2 BP 102/60 Blood Pressure Location Lt brachial Position Sitting Respiration 14 Pulse 68 Pulse Source Pulse Oximeter Temp 98.6 F Temp Source Oral Pulse Oximetry (%) 98 Oxygen Delivery Method Room Air Intake Visit Reasons: sore throat, diarrhea Intake Note: Sore throat, headache, runny nose, diarrhea. symptoms started on Wednesday. Fireman Helper Required: No Allergies No Known Allergies Allergy (Verified 04/19/25 15:04) Tobacco use date assessed: 05/24/25 Dental Screening Dental Screen Date: 02/22/25 HPI sore throat, diarrhea HPI Details Patient is a 69-year-old male who presents today with complaints of feeling sick. His flu-like symptoms started Wednesday. He states that he has a sore throat, headache, chills, diarrhea, congestion and slight cough. No actual documented fevers. He has been using [id number] cold and flu medication which barely take the edge off. He denies any abdominal pain besides some cramping with the diarrhea. No nausea or vomiting. No urinary symptoms. His was sick with similar symptoms. [facility] Medical History Erectile dysfunction Incisional hernia of anterior abdominal wall without obstruction or gangrene Elevated PSA Crohn disease EMMANUEL on CPAP Insomnia Surgical History Hx of knee surgery History of partial surgical removal of colon Family History Mother Alcoholism Father Alcoholism Sister Alcoholism Brother Alcoholism Other Substance use Social History Housing: House Alcohol intake: current Patient Tobacco Use Status: Former Tobacco user Cigarette Packs Per Day: 1 Years Smoked: 20, quit 45 years ago e-Cigarette/Vaping Use: Never Used Second Hand Smoke Exposure: No service: Yes Current occupational status: employed 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 Current occupational exposures/hazards: No Cognitive needs: No Hearing needs: No Vision needs: No Questionnaire Thrive Questionnaire Date Thrive assessed: 12/07/24 I am a: Patient What is your living situation today?: I choose not to answer this question Within the past 12 months, did the food you bought not last and you didn't have the money to get more?: I choose not to answer this question Within the past 12 months, did you worry whether your food would run out before you got money to buy more?: I choose not to answer this question Do you have trouble paying for medicines?: I choose not to answer this question Do you have trouble getting transportation to medical appointments?: I choose not to answer this question Do you have trouble paying your heating and electricity bill?: I choose not to answer this question Do you have trouble taking care of your child, family member or friend?: I choose not to answer this question Do you have trouble with day-to-day activities such as bathing, preparing meals, shopping, managing finances, etc.?: I choose not to answer this question Are you currently unemployed and looking for a job?: I choose not to answer this question Are you interested in more education?: I choose not to answer this question Please select the resources that you would like help with: None Currently or been in a relationship where the following occur: I choose not to answer THRIVE Score: 0 MATA-7 AMB Questionnaire MATA-7 Date MATA - 7 assessed: 12/07/24 Source: Developed by Drs. Bertin Farias, Rita Stewart, Mario Baca and colleagues, with an educational joao from [employer]. Physical exam (Primary Care) Vital Signs: Last Vital Signs Temp 98.6 F 06/28/25 10:06 Pulse 68 06/28/25 10:06 Resp 14 06/28/25 10:06 BP 102/60 06/28/25 10:06 Pulse Ox 98 06/28/25 10:06 Oxygen Delivery Method Room Air 06/28/25 10:06 BMI result Body Mass Index 26.2 Tobacco/Smoking Status: Tobacco use Status Tobacco use date assessed 05/24/25 06/28/25 10:04 Patient Tobacco Use Status Former Tobacco user 06/28/25 10:04 e-Cigarette/Vaping Use Never Used 06/28/25 10:04 Thrive Assessment: Date of Thrive Assessment Date Thrive assessed 12/07/24 06/28/25 10:04 Currently or been in a relationship where the following occur: I choose not to answer Const Orientation/consciousness: patient oriented x3 HENMT Other: TM on left noted to have small air-fluid level. TM on right WNL. Nasal mucosa erythematous. Clear drainage noted. No sinus tenderness present. Posterior oropharynx is mildly erythematous without any exudates. Ears: hearing grossly normal bilaterally Neck Thyroid: Thyroid normal Lymphatic: no lymphadenopathy noted Resp Auscultation: clear to auscultation bilaterally Cardio Rate: regular rate Rhythm: regular rhythm Heart sounds: S1 normal heart sound present and S2 normal heart sound present GI Inspection: Yes normal to inspection Palpation (GI): Soft to palpation and Other GI palpation findings present (nontender, no cva tenderness) Auscultation: normoactive bowel sounds Rectal Exam - Male: Yes deferred Skin General skin exam: no rashes or lesions noted Neuro General: patient oriented x3, gait normal and no focal motor deficits Coding Level of Care Code Est Pt Level 4 (43775) Complex EM visit Add On G2211 Diagnoses Viral URI with cough J06.9 Crohn's disease of large intestine without complication K50.10 Gastrointestinal tract location: large intestine Digestive disease complication type: without complication Assessment & Plan Assessment & Plan (1) Viral URI with cough: Code(s): J06.9 - Acute upper respiratory infection, unspecified Category: Medical Plan: Symptoms appear viral in etiology. COVID and flu testing ordered. He does have his son's wedding this weekend. Advised him to continue with supportive measures. (2) Crohn disease: Code(s): K50.90 - Crohn's disease, unspecified, without complications Category: Medical Qualifiers: Gastrointestinal tract location: large intestine Digestive disease complication type: without complication Qualified Code(s): K50.10 - Crohn's disease of large intestine without complications Plan: A little exacerbated with the diarrhea but this is not unusual for him. This usually happens with illnesses. He will continue to monitor. Orders: Orders SARS-CoV2/FLU/RSV Today J06.9 - Acute upper respiratory infection, unspecified, R09.89 - Other specified symptoms and signs involving the circulatory and respiratory systems
[2025-06-28 10:06] VITALS: BP 102/60; PULSE 68; RESP 14; TEMP 37; O2SAT 98; BMI 26.2
--- OUTSIDE RECORDS SUMMARY | 2025-06-28 11:15 | XMS_ITS | Encounter Summary ---
Author Organization [facility] Address [address] [place] [address] Phone Care Team Providers Care Interlocking And Signal Mechanic Name Role Phone Debbie Cheathma MD Primary Care Provider + Maxine Machuca MD Primary Care Provider [phone] Melisa Zhang Primary Care Provider [phone]- [phone] Encounter Details Date Type Department Care Team (Late st Contact Info) Description 06/23/2021 Procedure Pass MG [facility] 4 ENDO DEPT [address] [facility], [address]th [place] [address] Social History Tobacco Use Types Packs/Day Years [...] documented as of this encounter Care Teams Interlocking And Signal Mechanic Relationship Specialty Start Date End Date Debbie Cheatham MD [email or web address] PCP - General Family Medicine 04/16/21 04/21/22 Maxine Machuca MD PCP - General Internal Medicine 04/22/22 09/20/23 Melisa Zhang PA [address] [place] [address] PCP - General Physician Sock Folder 09/21/23 documented as of this encounter Additional Source Comments The information contained in this document represents components of the legal health record. It is not the complete legal health record.[facility]
--- OUTSIDE RECORDS SUMMARY | 2025-06-28 11:15 | XMS_ITS | Clinical Summary ---
Author Organization [facility] Address [address] [place] [address] Care Team Providers Care Commanding Officer Traffic Division Name Role Phone Pcp, No Primary Care [...] Health Maintenance Due Date Last Done Comments Advance Care Planning 1955 Hepatitis C Virus Screening 1955 DTaP/Tdap/Td Vaccines (1 - Tdap) 11/26/1975 Colonoscopy 2001 Pneumococcal Vaccines 50+ (1 of 1 - PCV) 2006 Zoster (Shingles) Vaccine (1 of 2) 2006 Influenza Vaccine 04/27/2025 COVID-19 Vaccine (1 - 2023-2 5 season) 2025 RSV Vaccine 60 years and old er and Patients (1 - 1-dose 75+ series) 11/26/2031 Hepatitis B Vaccines Aged Out No long er eligible based on patient's age to complete this topic Insurance Care Teams Commanding Officer Traffic Division Relationship Specialty Start Date End Date Pcp, No [address] [place] [address] PCP - General 12/17/20
--- OUTSIDE RECORDS SUMMARY | 2025-06-28 11:16 | XMS_ITS | Clinical Summary ---
Author Organization [facility] Address [address] [place] [address] Phone Care Team Providers Care Adult Literacy Teacher Name Role Phone Melisa Zhang Primary Care Provider [phone]- [phone] Allergies No known active allergies Medications STELARA [...] EYE EXAM 09/21/2023 URINE MICROALBUMIN/CREATININE RATIO 09/21/2023 BLOOD PRESSURE 02/05/2025 08/08/2024 INFLUENZA VACCINE (#1) 2025 07/22/2017 COVID-19 VACCINE (2024- season) 2025 09/05/2021, 01/31/2021, 01/06/2021, Additional history exists COLONOSCOPY 06/23/2031 06/23/2021 COLORECTAL CANCER SCREENING 06/23/2031 [...] 1955 Admit Type: Outpatient Age: 65 Room: [place] [address] Gender: Male Note Status: Finalized Attending MD: [...] performed the entire procedure. Tanja Astudillo MD, [id number] 06/23/2021 2:46:35 PM Number of Addenda: 0 Note Initiated On: 06/23/2021 1:12 PM Debbie Cheatham MD GI PROCEDURE ORDERABLES Final Result from Last 3 Months or Most Recently Relevant to Health Maintenance [facility] Member Subscriber Plan / Payer (Ef fective 2021-Present) Name:Suraj Loomis Member ID:[id number] Relation to Subscriber:Self Name:Suraj Loomis Subscriber ID:[id number] Payer ID:[id number] Group ID:Not on file Type:Medicare Address: [address] C[employer] PPO MEDICARE A Member Subscriber Plan / Payer (Ef fective 2021-) Name:VladislavSuraj Member ID:[id number] Relation to Subscriber:Self Name:Suraj Loomis Subscriber ID:[id number] Payer ID:[id number] Group ID:Not on file Type:Medicare Address: [address] C[employer]NA PPO MEDICARE A CIGNA PPO MEDICARE A Member Subscriber Plan / Payer ( fective 2021-) Name:Suraj Loomis Member ID:[id number] Relation to Subscriber:Self Name:Suraj Loomis Subscriber ID:[id number] Payer ID:[id number] Group ID:Not on file Type:Medicare Address: [place] [phone] CIGNA PPO MEDICARE A CIGNA PPO MEDICARE A CIGNA PPO MEDICARE A CIGNA PPO MEDICARE A Member Subscriber Plan / Payer ( fective 2021-) Name:Suraj Loomis Member ID:[id number] Relation to Subscriber:Self Name:VladislavSuraj Subscriber ID:[id number] Payer ID:[id number] Group ID:Not on file Type:Medicare Address: [facility] Vision Critical [address] CIGNA PPO MEDICARE A Care Teams Adult Literacy Teacher Relationship Specialty Start Date End Date Melisa Zhang PA [address] [place] [address] PCP - General Physician Career Representative 09/21/23 Additional Source Comments The information contained in this document represents components of the legal health record. It is not the complete legal health record.[facility]
== END 2025-06-28 12:02 | disposition home or self-care (01) ==
LOC: HO.HMCFM 09:59
PROVIDERS: PCP Physician Assistant; Visit Provider Physician Assistant
DX: J06.9 Acute upper respiratory infection, unspecified (principal); K50.10 Crohn's disease of large intestine without complications

== ENCOUNTER 2025-06-28 09:59 | Outpatient (REF) | payer OTHER, SELFPAY ==
[2025-06-28 13:19] LABS: Resp Syncy Virus RNA Qual PCR NEGATIVE (Negative); SARS COV2 PCR INHOUSE POSITIVE (Negative)
--- OUTSIDE RECORDS SUMMARY | 2025-06-28 13:49 | XMS_ITS | Data Portability ---
Author Organization [place] [facility], [facility]ergy Address [address] [place] [address] Care Team Providers Care Manager University Name Role Phone LORENZO BLOOM Primary Care Provider [phone] LORENZO BLOOM Referring Provider [phone] Assessment Encounter Date Assessment Date Assessment [...] when sleeping. All questions were answered today. [email or web address] Not available 01/19/2025 10:28:12 Plan of Treatment Reminders Order Date Submit Date Provider Last Modified By Organization Details Last Modified Time Details Appointments None record ed. Lab None record ed. Referral None record ed. Procedures None record ed. Surgeries None record ed. Imaging None record ed. Medication Orders None record ed. Patient TargetsNo targets recorded. Patient InstructionsNo instructions [...] Sensorineur al hearing loss of bilateral ears [id number] Active [address] [facility], [place], [address], [facility] - [facility] 10:10:08 Bilateral tinnitus [id number] Active 2024 BRODERICK DAILEY PA-C [address] [facility] 100, [place], [address], [facility] - [facility] [place] 10:28:16 Problem Notes None recorded. Procedures Surgical History Date Name Laterality Status Provider Name and Address Organization Details Recorded Time 01/19/2025 Comp Audio with Tymps - 73872 & 62288 completed RAFA RUSTY ALVARES [address] [facility] 100, [place], [address], [facility] - [facility] [place] 01/19/2025 10:09:55 Imaging Results None recorded. Procedure [...] Not Available No t Available amoxicillin 875 mg-levi ayala clavulanate 125 mg tablet TAKE 1 TABLET [...] Updated DateTime 01/19/2025 172.72 cm 28.9 kg/m2 73009.55 g RENETTA MONTOYA [place] [facility] 01/19/2025 10:17:20 Social History None recorded. Functional [...] Diagnosis SNOMED-CT Code Diagnosis ICD10 Code Diagnosis IMO Codes Diagnosis Note [id number] BRODERICK DAILEY PA-C [facility] [address] [address] 01/19/2025 09:42:10 01/19/2025 10:26:12 Sensorineural hearing loss of bilateral ears [id number] H90.3 Audiologic al evaluation results: Right ear: Normal hearing with the exception of a mild SNHL at 4000Hz with excellent word recognitio n. Left ear: Borderline normal sloping to a mild sensorineu ral hearing loss with excellent word recognitio n. Tympanomet ry: Right Ear:Type A Left Ear:Type A Bilateral tinnitus 255[address]389 102 H93.13 Health Concerns Section Related Observation LastModified by Organization Detai ls LastModified Time None Recorded Concern Status LastModified by Organization Details LastModified Time None Recorded Advance Directives Directive None Recorded Payers Insurance Date Sequence Insurance Name Policy Number Policy Tiwari Covered Member ID Tiwari Member ID Guarantor Name 01/24/2025 1 [facility] [id number] Suraj Loomis [id number] Suraj Loomis Notes Date Note Type Note Provider Name and Address Organization Details Recorded Time 01/19/2025 text/html ROS as noted in the HPI 69-year-old male presents for evaluation of bilateral tinnitus. It has been present for many years. History of noise exposure in the . He does note that he has some hearing loss on the left side which has been present for many years. No reports of vertigo. BRODERICK DAILEY PA-C [address] [place] [address], [phone], [facility] - [facility] 01/19/2025 10:28:44
== END 2025-06-28 10:00 | disposition home or self-care (01) ==
LOC: HO.LNP 09:59
PROVIDERS: PCP Physician Assistant; Visit Provider Physician Assistant
DX: K50.10 Crohn's disease of large intestine without complications (principal); R09.89 Other specified symptoms and signs involving the circulatory and respiratory systems; J06.9 Acute upper respiratory infection, unspecified; R19.7 Diarrhea, unspecified
CPT/HCPCS: 87637

== ENCOUNTER 2025-07-24 10:51 | Outpatient (AMB) | payer OTHER, SELFPAY ==
--- NOTE | 2025-07-24 11:03 | MHC.OFFVIS ---
Vital Signs 07/24/25 11:04 Height 5 ft 7 in Weight 171 lb 15.369 oz BMI 26.9 BP 122/80 Blood Pressure Location Lt brachial Position Sitting Pulse 68 Intake Visit Reasons: 3 mth s/p theresa score Intake Note: 3 month follow-up after calcium score test Blood Bank Credit Clerk Required: No Allergies No Known Allergies Allergy (Verified 04/19/25 15:04) Medication List - Last Reconciled 07/24/25 by Ian Gaming MD atorvastatin (Lipitor) 20 mg PO QPM blood sugar diagnostic (FreeStyle Lite Strips) Use daily As directed to check blood glucose blood-glucose meter (FreeStyle Lite Meter kit) Use daily As directed to check blood sugars cholecalciferol (vitamin D3) 25 mcg PO DAILY eszopiclone (Lunesta) 3 mg PO BEDTIME PRN 30 days lancets (FreeStyle Lancets) Once daily as directed to check blood glucose ustekinumab (Stelara) mg subcut HPI Comments Details: Suraj comes for follow-up. He remains active in his day-to-day lifestyle. Denies any exertional chest pain or shortness of breath. He has coronary calcium score suggest elevated calcium score in the LAD territory. Good started on atorvastatin 20 mg daily. No repeat lipid panel and has been performed. [facility] Medical History Erectile dysfunction Incisional hernia of anterior abdominal wall without obstruction or gangrene Elevated PSA Crohn disease EMMANUEL on CPAP Insomnia Surgical History Hx of knee surgery History of partial surgical removal of colon Family History Mother Alcoholism Father Alcoholism Sister Alcoholism Brother Alcoholism Other Substance use Social History Housing: House Alcohol intake: current Patient Tobacco Use Status: Former Tobacco user Cigarette Packs Per Day: 1 Years Smoked: 20, quit 45 years ago e-Cigarette/Vaping Use: Never Used Second Hand Smoke Exposure: No service: Yes Current occupational status: employed 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 Current occupational exposures/hazards: No Cognitive needs: No Hearing needs: No Vision needs: No Review of Systems Const Denies chills, Denies fatigue, Denies fever(s), Denies frequent falls, Denies weakness, Denies weight gain and Denies weight loss ENT Denies dizziness Card Denies chest pain, Denies leg edema, Denies lightheadedness, Denies palpitations, Denies dyspnea, Denies dyspnea on exertion, Denies orthopnea and Denies other (loss of consciousness) Resp Denies cough, Denies dyspnea and Denies dyspnea on exertion GI Denies hematochezia and Denies change in stool character Musc Denies abnormal gait, Denies muscle weakness, Denies numbness, Denies radiating pain into limb and Denies tingling Neuro Denies Abnormal speech present, Denies abnormal gait, Denies dizziness, Denies frequent falls, Denies numbness, Denies tingling and Denies weakness Endo Denies fatigue and Denies palpitations Physical Exam Vital Signs: Last Vital Signs Pulse 68 07/24/25 11:04 BP 122/80 07/24/25 11:04 BMI result Body Mass Index 26.9 Const General: cooperative, comfortable, no acute distress, alert and awake Nutritional Appearance: overweight Orientation/consciousness: patient oriented x3 Limitations: no limitations HEENT Head: Yes normocephalic and Yes atraumatic Neck Neck: Yes trachea midline, Yes supple and Yes no JVD Resp Effort & Inspection: normal respiratory effort Auscultation: clear to auscultation bilaterally Cardio Jugular venous distension: no JVD Palpation: normal PMI Rate: regular rate Rhythm: regular rhythm Heart sounds: S1 normal heart sound present, S2 normal heart sound present, no click, no gallops, no murmurs and no rubs GI Auscultation: normal bowel sounds Skin General skin exam: no rashes or lesions noted Neuro General: patient oriented x3 and no focal motor deficits Speech: No Abnormal speech present Extrem General: Yes no clubbing, cyanosis or edema Psych Appearance: grossly normal Assessment & Plan Assessment & Plan (1) CAD (coronary artery disease): Code(s): I25.10 - Atherosclerotic heart disease of [place] coronary artery without angina pectoris Category: Medical Plan: Nonobstructive CAD with elevated calcium score in the LAD territory suggestive of coronary atherosclerosis. Calcium score is below 100 and therefore by multiple studies does not really require aspirin therapy. Overall calcium burden in his low. However presence of atherosclerosis dictates aggressive medical therapy especially lipid modification. This was discussed with him. Pathophysiology of acute coronary syndrome as well as chronic progressive coronary atherosclerosis were discussed. Continue statin therapy at 20 mg daily. Follow up LDL with target goal LDL less than 70 mg/dL. This was discussed with him. He is agreeable. Follow up in the clinic otherwise in 1 year's time. Advised to call me with any new symptoms. Orders: Orders Lipid Panel Today I25.10 - Atherosclerotic heart disease of [place] coronary artery without angina pectoris Coding Level of Care Code Est Pt Level 3 (09734) Complex EM visit Add On G2211 Diagnoses CAD (coronary artery disease) I25.10
[2025-07-24 11:04] VITALS: BP 122/80; PULSE 68; BMI 26.9
--- OUTSIDE RECORDS SUMMARY | 2025-07-24 13:55 | XMS_ITS | Data Portability ---
Author Organization [place] [facility], Allergy Address [address] [place] [address] Care Team Providers Care Paperboard Box Maker Name Role Phone LORENZO BLOOM Primary Care Provider LORENZO BLOOM Referring Provider [phone] Assessment Encounter Date Assessment Date Assessment LastModified [...] when sleeping. All questions were answered today. [email or web address] Not available 01/19/2025 10:28:12 Plan of Treatment [...] Sensorineur al hearing loss of bilateral ears [id number] Active 2024 RUSTY DOWNING 100 [facility] 100, [place], [address], [facility] - [facility] 10:10:08 Bilateral tinnitus [id number] Active 2024 BRODERICK DAILEY PA-C 100 [facility] 100, [place], [address], [facility] - [facility] [place] 10:28:16 Problem Notes None recorded. Procedures Surgical History Date Name Laterality Status Provider Name and Address Organization Details Recorded Time 01/19/2025 Comp Audio with Tymps - 11469 & 70172 completed RAFA RUSTY ALVARES 100 [facility] 100, [place], [address], [facility] - [facility] [place] 01/19/2025 10:09:55 Imaging Results None recorded. Procedure [...] Updated DateTime 01/19/2025 172.72 cm 28.9 kg/m2 98850.55 g RENETTA MONTOYA [place] [facility] 01/19/2025 10:17:20 Social History None [...] ICD10 Code Diagnosis IMO Codes Diagnosis Note [id number] BRODERICK DAILEY PA-C [facility] [address] [address] 01/19/2025 09:42:10 01/19/2025 10:26:12 Sensorineural hearing loss of bilateral ears [id number] H90.3 Audiologic al evaluation results: Right ear: Normal hearing with the exception of a mild SNHL at 4000Hz with excellent word recognitio n. Left ear: Borderline normal sloping to a mild sensorineu ral hearing loss with excellent word recognitio n. Tympanomet ry: Right Ear:Type A Left Ear:Type A Bilateral tinnitus 50166 04496 102 H93.13 Health Concerns Section Related Observation LastModified by Organization Detai ls LastModified Time None Recorded Concern Status LastModified by Organization Details LastModified Time None Recorded Advance Directives Directive None Recorded Payers Insurance Date Sequence Insurance Name Policy Number Policy Tiwari Covered Member ID Tiwari Member ID Guarantor Name 01/24/2025 1 [facility] [id number] Suraj Loomis [id number] Suraj Loomis Notes Date Note Type Note [...] No reports of vertigo. BRODERICK DAILEY PA-C [address] [place] [address], [address], [facility] - [facility] 01/19/2025 10:28:44
== END 2025-07-24 11:29 | disposition home or self-care (01) ==
LOC: HO.HCS 10:52
PROVIDERS: PCP Physician Assistant; Visit Provider Internal Medicine Cardiovascular Disease
DX: I25.10 Atherosclerotic heart disease of native coronary artery without angina pectoris (principal)
CPT/HCPCS: 99213

== ENCOUNTER 2025-08-17 13:53 | Outpatient (REF) | payer OTHER, SELFPAY ==
--- OUTSIDE RECORDS SUMMARY | 2024-08-08 15:09 | XMS_ITS | Encounter Summary ---
Author Organization [facility] Address [address] [place] [id number] Phone Care Team Providers Care Senior Etl Developer Name Role Phone Melisa Zhang Primary Care Provider [phone]- [phone] Encounter Details Date Type Department Care Team (Late st Contact Info) Description 08/08/2024 3:09 PM [facility] Hospital Encounter [facility] [address] [place] [id number] Annika Burnett, ASSISTANT PROFESSOR OF GEOGRAPHY [address] [place] [address] [email or web address] Social History Tobacco Use Types Packs/Day Years Used Date Smoking Tobacco: Never Smokeless Tobacco: Never Alcohol Use Standard Drinks/Week Comments Not Currently 0 (1 standard drink = 0.6 oz pur e alcohol) Education Answer Date Recorded Are you interested in more education? Not on el e 01/23/2023 Are you concerned about learning? Not on file 01/23/2023 No 01/23/2023 No 01/23/2023 Digital Access Answer Date Recorded No 02/17/2023 No 02/17/2023 Reliable internet access at home? Not on file 02/17/2023 Device with a working camera? Not on file Sex and Gender Information Value Date Recorded Sex Assigned at Not on file Legal Sex Male 8:07 AM EDT Gender Identity Male 04/16/2021 8:09 AM EDT Sexual Orientation Choose not to disclose 2020 8:09 AM EDT documented as of this encounter Plan of Treatment Not on file documented as of this encounter Procedures Procedure Name Priority Date/Time Associated Diagnosis Comments XR CHEST PA AND LATERAL 2 VIEWS Urgent/patient waiting 08/08/2024 3:12 PM EST Dyspnea, unspecified type documented in this encounter Results * XR CHEST PA AND LATERAL 2 VIEWS (08/08/2024 3:12 PM EST) Anatomical Region Laterality Modality Chest Computed Radiogr aphy 08/08/2024 3:39 PM EST Impressions 08/08/2024 3:55 PM EST No focal consolidation. ATTESTATION: Rebecca Graham as teaching physician, have reviewed the images for this case and if necessary edited the report originally created by Otf Zapien MD. Narrative 08/08/2024 3:55 PM EST XR CHEST PA AND LATERAL 2 VIEWS Referring clinician's provided indication for this examination in [facility]: Dyspnea (Shortness of Breath) COMPARISON: None FINDINGS: Devices/Tubes/Lines: None. Lungs: Normal. The lungs are clear. No focal consolidation or pulmonary edema. Pleura: Normal. No pleural effusion or pneumothorax. Heart/Mediastinum: Normal heart and mediastinum. Bones/Soft Tissues: No significant skeletal abnormality. Degenerative changes to the thoracic spine. Procedure Note Rebecca Ingram MD, PhD - 08/08/2024 XR CHEST PA AND LATERAL 2 VIEWS Referring clinician's provided indication for this examination in [facility]:Dyspnea (Shortness of Breath) COMPARISON: None FINDINGS: Devices/Tubes/Lines: None. Lungs: Normal. The lungs are clear. No focal consolidation or pulmonaryedema. Pleura: Normal. No pleural effusion or pneumothorax. Heart/Mediastinum: Normal heart and mediastinum. Bones/Soft Tissues: No significant skeletal abnormality. Degenerativechanges to the thoracic spine. IMPRESSION: No focal consolidation. ATTESTATION: Rebecca Graham as teaching physician, have reviewedthe images for this case and if necessary edited the report originallycreated by Otf Zapien MD. us Annika Burnett ASSISTANT PROFESSOR OF GEOGRAPHY IMG XR CHEST Final R esult documented in this encounter Visit Diagnoses Not on filedocumented in this encounter Additional Health Concerns Infection Onset Date Last Indicated Resolved Time CoV-Risk 08/08/2024 08/08/2024 08/19/2024 1:22 AM EST documented as of this encounter Care Teams Senior Etl Developer Relationship Specialty Start Date End Date Melisa Zhang PA [address] [place] [id number] PCP - General Physician Assembly Manager 09/21/23 documented as of this encounter Additional Source Comments The information contained in this document represents components of the legal health record. It is not the complete legal health record.[facility]
--- OUTSIDE RECORDS SUMMARY | 2025-08-17 14:24 | XMS_ITS | Clinical Summary ---
Author Organization [facility] Address [address] [place] [address] Care Team Providers Care Weight Shifter Name Role Phone Pcp, No Primary Care [...] - 2023-2 5 season) 2025 RSV Vaccine 50 years and old er and Patients (1 - 1-dose 75+ series) 11/26/2031 Hepatitis B Vaccines Aged Out No long er eligible based on patient's age to complete this topic Insurance Care Teams Weight Shifter Relationship Specialty Start Date End Date Pcp, No [address] [place] [address] PCP - General 12/17/20
--- OUTSIDE RECORDS SUMMARY | 2025-08-17 14:24 | XMS_ITS | Clinical Summary ---
Author Organization [facility] Address [address] [place] [address] Phone Care Team Providers Care Gas Engine Mechanic Name Role Phone Melisa Zhang Primary Care Provider [phone] Allergies No known active allergies Medications STELARA [...] INFLUENZA VACCINE (#1) 2025 07/22/2017 COVID-19 VACCINE ( season) 2025 09/05/2021, 01/31/2021, 01/06/2021, Additional history [...] 1955 Admit Type: Outpatient Age: 65 Room: [place] [address] Gender: Male Note Status: Finalized Attending MD: [...] performed the entire procedure. Tanja Astudillo MD, [id number] 06/23/2021 2:46:35 PM Number of Addenda: 0 Note Initiated On: 06/23/2021 1:12 PM Debbie Cheatham MD GI PROCEDURE ORDERABLES Final Result from Last 3 Months or Most Recently Relevant to Health Maintenance Insurance [facility] PPO MEDICARE A CIGNA PPO MEDICARE A CIGNA PPO MEDICARE A CIGNA PPO MEDICARE A CIGNA PPO MEDICARE A Member Subscriber Plan / Payer (Ef fective 2021-Present) Name:Suraj Loomis Member ID:[id number] Relation to Subscriber:Self Name:Suraj Loomis Subscriber ID:[id number] Payer ID:[id number] Group ID:Not on file Type:Medicare Address: [address] CIG[employer] PPO MEDICARE A Member Subscriber Plan / Payer (Ef fective 2021-Present) Name:VladislavSuraj Member ID:[id number] Relation to Subscriber:Self Name:VladislavSuraj Subscriber ID:[id number] Payer ID:[id number] Group ID:Not on file Type:Medicare Address: [address] C[employer] PPO MEDICARE A CIGNA PPO MEDICARE A CIGNA PPO MEDICARE A Care Teams Gas Engine Mechanic Relationship Specialty Start Date End Date Melisa Zhang PA [address] [place] [id number] PCP - General Physician Bicycle Ii Assembler 09/21/23 Additional Source Comments The information contained in this document represents components of the legal health record. It is not the complete legal health record.[facility]
--- OUTSIDE RECORDS SUMMARY | 2025-08-17 14:24 | XMS_ITS | Data Portability ---
Author Organization [place] [facility], Allergy Address [address] [place] [phone] Care Team Providers Care Java Enterprise Architect Name Role Phone LORENZO BLOOM Primary Care Provider LORENZO BLOOM Referring Provider [phone] Assessment Encounter Date Assessment Date Assessment LastModified [...] when sleeping. All questions were answered today. [email or web address] Not available 01/19/2025 10:28:12 Plan of Treatment [...] Sensorineur al hearing loss of bilateral ears [id number] Active 2024 RUSTY DOWNING [address] [facility], [place], [address], [facility] 10:10:08 Bilateral tinnitus [id number] Active 2024 BRODERICK DAILEY PA-C [address] [facility], [place], [address], [facility] [place] 10:28:16 Problem Notes None recorded. Procedures Surgical History Date Name Laterality Status Provider Name and Address Organization Details Recorded Time 01/19/2025 Comp Audio with Tymps - 07368 & 78511 completed RAFA RUSTY ALVARES [address] [facility], [place], [address], [facility] - [facility] 01/19/2025 10:09:55 Imaging Results None recorded. Procedure [...] Updated DateTime 01/19/2025 172.72 cm 28.9 kg/m2 93459.55 g RENETTA MONTOYA [place] [facility] 01/19/2025 10:17:20 Social History None recorded. [...] ICD10 Code Diagnosis IMO Codes Diagnosis Note [id number] BRODERICK DAILEY PA-C [facility] [address] [phone] 01/19/2025 09:42:10 01/19/2025 10:26:12 Sensorineural hearing loss of bilateral ears [id number] H90.3 Audiologic al evaluation results: Right ear: Normal hearing with the exception of a mild SNHL at 4000Hz with excellent word recognitio n. Left ear: Borderline normal sloping to a mild sensorineu ral hearing loss with excellent word recognitio n. Tympanomet ry: Right Ear:Type A Left Ear:Type A Bilateral tinnitus 11792 98482 102 H93.13 Health Concerns Section Related Observation LastModified by Organization Detai ls LastModified Time None Recorded Concern Status LastModified by Organization Details LastModified Time None Recorded Advance Directives Directive None Recorded Payers Insurance Date Sequence Insurance Name Policy Number Policy Tiwari Covered Member ID Tiwari Member ID Guarantor Name 01/24/2025 1 [facility] [id number] Suraj Loomis [id number] Suraj Loomis Notes Date Note Type Note [...] No reports of vertigo. BRODERICK DAILEY PA-C [address] [place] [address], [phone], [facility] - [facility] 01/19/2025 10:28:44
--- OUTSIDE RECORDS SUMMARY | 2025-08-17 14:24 | XMS_ITS | Encounter Summary ---
Author Organization [facility] Address [address] [place] [address] Phone Care Team Providers Care Security Systems Installer Name Role Phone Debbie Cheatham MD Primary Care Provider + Maxine Machuca MD Primary Care Provider [phone] Melisa Zhang Primary Care Provider [phone] Encounter Details Date Type Department Care Team (Late st Contact Info) Description 06/23/2021 Procedure Pass [facility] 4 ENDO DEPT [address] [facility], 4th [place] [address] Social History Tobacco Use Types Packs/Day Years Used Date Smoking Tobacco: Never Smokeless Tobacco: Never Alcohol Use Standard Drinks/Week Comments Not Currently 0 (1 standard drink = 0.6 oz pur e alcohol) Sex and Gender Information Value Date Recorded [...] documented as of this encounter Care Teams Security Systems Installer Relationship Specialty Start Date End Date Debbie Cheatham MD [email or web address] PCP - General Family Medicine 04/16/21 04/21/22 Maxine Machuca MD PCP - General Internal Medicine 04/22/22 09/20/23 Melisa Zhang PA [address] [place] [address] PCP - General Physician Bunch Breaker Machine Operator 09/21/23 documented as of this encounter Additional Source Comments The information contained in this document represents components of the legal health record. It is not the complete legal health record.[facility]
[2025-08-17 15:07] LABS: Cholesterol 92 mg/dL (<200); HDL Cholesterol 46 mg/dL (>40); Triglycerides 63 mg/dL (<150)
== END 2025-08-17 13:54 | disposition home or self-care (01) ==
LOC: HO.LAB 13:53
PROVIDERS: PCP Physician Assistant; Visit Provider Internal Medicine Cardiovascular Disease
DX: I70.90 Unspecified atherosclerosis (principal)
CPT/HCPCS: 36415; 80061

== ENCOUNTER 2025-08-30 13:42 | Outpatient (AMB) | payer OTHER, SELFPAY ==
--- NOTE | 2025-08-30 13:58 | MHC.PC.OV ---
Vital Signs 08/30/25 13:59 Weight 175 lb 2 oz BP 108/76 Blood Pressure Location Lt brachial Position Sitting Respiration 12 Pulse 67 Pulse Source Pulse Oximeter Temp 98.1 F Temp Source Oral Pulse Oximetry (%) 97 Oxygen Delivery Method Room Air Intake Visit Reasons: dm Intake Note: Diabetes follow up. Head cold, runny nose, stuffy head for the past month. Process Description Writer Required: No Allergies No Known Allergies Allergy (Verified 08/30/25 13:59) Medication List - Last Reconciled 08/30/25 by Melisa Zhang PA-C atorvastatin (Lipitor) 20 mg PO QPM blood sugar diagnostic (FreeStyle Lite Strips) Use daily As directed to check blood glucose blood-glucose meter (FreeStyle Lite Meter kit) Use daily As directed to check blood sugars cholecalciferol (vitamin D3) 25 mcg PO DAILY eszopiclone (Lunesta) 3 mg PO BEDTIME PRN 30 days fluticasone propionate 50 mcg/actuation (Flonase Allergy Relief) 2 sprays intranasal DAILY lancets (FreeStyle Lancets) Once daily as directed to check blood glucose loratadine 10 mg PO DAILY ustekinumab (Stelara) mg subcut Tobacco use date assessed: 08/30/25 Fall risk assessment: No Falls in past year Last assessed Fall Risk: 08/30/25 Dental Screening Dental Screen Date: 02/22/25 HPI dm HPI Details Patient is a 69-year-old male with a significant past medical history of Crohn's disease, obstructive sleep apnea on CPAP, insomnia and newly diagnosed type 2 diabetes here today for a f/u. HEENT: He does complain today of sinus congestion, pressure and rhinorrhea. Symptoms have been going on for about 4 weeks. He does not feel like it is getting better. He is using [id number] analgesics with temporary relief. No fevers or chills. No ear pain, sore throat or cough. Endo: He has a history of diet controlled type 2 diabetes and his recent A1c is 6.6. He states that he has had some dietary indiscretions with his son's wedding recently and with the holidays. This is motivating him to work on lifestyle modifications. PULM: He is following with pulmonology for obstructive sleep apnea. He is on Lunesta 3 mg nightly as needed CV: Blood pressure today in the office is 108/76. He had a cardiac workup recently and was noted on his CT to have signs of atherosclerosis and was recommended by Cardiology to start Lipitor 20 mg nightly. His cholesterol improved. Uro: His last PSA was WNL. Asymptomatic. GI: He followed with colorectal surgery in 2021 after his reversal in April 2022. [facility] Medical History Erectile dysfunction Incisional hernia of anterior abdominal wall without obstruction or gangrene Elevated PSA Crohn disease EMMANUEL on CPAP Insomnia Surgical History Hx of knee surgery History of partial surgical removal of colon Family History Mother Alcoholism Father Alcoholism Sister Alcoholism Brother Alcoholism Other Substance use Social History (Updated 08/30/25 @ 14:05 by Gerda Yadav CMA) Housing: House Alcohol intake: current Patient Tobacco Use Status: Former Tobacco user Cigarette Packs Per Day: 1 Years Smoked: 20, quit 45 years ago e-Cigarette/Vaping Use: Never Used Second Hand Smoke Exposure: No service: Yes Current occupational status: employed 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 Current occupational exposures/hazards: No Cognitive needs: No Hearing needs: No Vision needs: No Questionnaire Thrive Questionnaire Date Thrive assessed: 12/07/24 I am a: Patient What is your living situation today?: I choose not to answer this question Within the past 12 months, did the food you bought not last and you didn't have the money to get more?: I choose not to answer this question Within the past 12 months, did you worry whether your food would run out before you got money to buy more?: I choose not to answer this question Do you have trouble paying for medicines?: I choose not to answer this question Do you have trouble getting transportation to medical appointments?: I choose not to answer this question Do you have trouble paying your heating and electricity bill?: I choose not to answer this question Do you have trouble taking care of your child, family member or friend?: I choose not to answer this question Do you have trouble with day-to-day activities such as bathing, preparing meals, shopping, managing finances, etc.?: I choose not to answer this question Are you currently unemployed and looking for a job?: I choose not to answer this question Are you interested in more education?: I choose not to answer this question Please select the resources that you would like help with: None Currently or been in a relationship where the following occur: I choose not to answer THRIVE Score: 0 AUDIT C Alcohol Use Questionnaire (AUDIT-C) 1. How often do you have a drink containing alcohol?: Never 3. How often do you have six or more drinks on one occasion?: Never Total Score: 0 MATA-7 AMB Questionnaire MATA-7 Date MATA - 7 assessed: 12/07/24 Source: Developed by Drs. Bertin Farias, Rita Stewart, Mario Baca and colleagues, with an educational joao from [employer]. Physical exam (Primary Care) Vital Signs: Last Vital Signs Temp 98.1 F 08/30/25 13:59 Pulse 67 08/30/25 13:59 Resp 12 08/30/25 13:59 BP 108/76 08/30/25 13:59 Pulse Ox 97 08/30/25 13:59 Oxygen Delivery Method Room Air 08/30/25 13:59 Tobacco/Smoking Status: Tobacco use Status Tobacco use date assessed 08/30/25 08/30/25 14:04 Patient Tobacco Use Status Former Tobacco user 08/30/25 14:05 e-Cigarette/Vaping Use Never Used 08/30/25 14:05 Thrive Assessment: Date of Thrive Assessment Date Thrive assessed 12/07/24 08/30/25 14:04 Currently or been in a relationship where the following occur: I choose not to answer Const Orientation/consciousness: patient oriented x3 HENMT Other: TMs are dome-shaped a small air-fluid levels. Nasal mucosa erythematous and edematous. Mild maxillary sinus tenderness present. Ears: hearing grossly normal bilaterally Neck Thyroid: Thyroid normal Lymphatic: no lymphadenopathy noted Resp Auscultation: clear to auscultation bilaterally Cardio Rate: regular rate Rhythm: regular rhythm Heart sounds: S1 normal heart sound present and S2 normal heart sound present GI Inspection: Yes normal to inspection Palpation (GI): Soft to palpation and Other GI palpation findings present (nontender, no cva tenderness) Auscultation: normoactive bowel sounds Rectal Exam - Male: Yes deferred Skin General skin exam: no rashes or lesions noted Neuro General: patient oriented x3, gait normal and no focal motor deficits Results AMB Hemoglobin A1c AMB Hemoglobin A1c 6.6 % Last Edit by Gerda Yadav CMA on 08/30/25 14:10 Results Reviewed Results Reviewed: Laboratory Last Values Hgb A1c (Clinic) 6.6 % (4.0-6.0) H 08/30/25 14:04 Laboratory Tests 05/19/25 05/19/25 08/17/25 08:05 08:06 14:04 WBC 6.9 RBC 5.25 Hgb 16.0 Hct 49.1 Plt Count 230 Sodium 141 Potassium 4.6 Chloride 108 Carbon Dioxide 25 Anion Gap 13 BUN 22 H Creatinine 1.01 Estimated GFR > 60 Estimat Average Glucose 128 Hemoglobin A1c % 6.1 H Calcium 9.5 Total Bilirubin 0.5 AST 24 ALT 16 Alkaline Phosphatase 69 Total Protein 6.9 Triglycerides 63 Cholesterol 92 LDL Cholesterol, Calc 34 HDL Cholesterol 46 Urine Creatinine 107.69 Urine Microalbumin < 5.0 Microalb/Creat Ratio TNP Coding Level of Care Code Est Pt Level 4 (64399) Complex visit Add On G2211 Diagnoses Insomnia, unspecified type G47.00 Insomnia type: unspecified Crohn's disease of large intestine without complication K50.10 Digestive disease complication type: without complication Gastrointestinal tract location: large intestine Type 2 diabetes, diet controlled E11.9 Bacterial sinusitis J32.9; B96.89 Assessment & Plan Assessment & Plan (1) Insomnia: Code(s): G47.00 - Insomnia, unspecified Category: Medical Qualifiers: Insomnia type: unspecified Qualified Code(s): G47.00 - Insomnia, unspecified Plan: Continue Lunesta (2) Crohn disease: Code(s): K50.90 - Crohn's disease, unspecified, without complications Category: Medical Qualifiers: Digestive disease complication type: without complication Gastrointestinal tract location: large intestine Qualified Code(s): K50.10 - Crohn's disease of large intestine without complications Plan: Well-controlled (3) Type 2 diabetes, diet controlled: Code(s): E11.9 - Type 2 diabetes mellitus without complications Category: Medical Plan: States he is motivated to make lifestyle modifications (4) Bacterial sinusitis: Code(s): J32.9 - Chronic sinusitis, unspecified; B96.89 - Other specified bacterial agents as the cause of diseases classified elsewhere Plan: We will start Flonase and Claritin. The only tolerates azithromycin due to his Crohn's disease. He will take this and let me know if he does not improve or if anything worsens or changes. Patient understands and agrees with the plan. Orders: Orders AMB Hemoglobin A1c 08/30/25 E11.9 - Type 2 diabetes mellitus without complications Comprehensive [place]. Panel Fast 08/30/25 E11.9 - Type 2 diabetes mellitus without complications, G47.00 - Insomnia, unspecified, K50.10 - Crohn's disease of large intestine without complications Complete Blood Count Auto Diff 08/30/25 E11.9 - Type 2 diabetes mellitus without complications, G47.00 - Insomnia, unspecified, K50.10 - Crohn's disease of large intestine without complications Hemoglobin A1c 08/30/25 E11.9 - Type 2 diabetes mellitus without complications, G47.00 - Insomnia, unspecified, K50.10 - Crohn's disease of large intestine without complications, R73.01 - Impaired fasting glucose Medications: New fluticasone propionate 50 mcg/actuation (Flonase Allergy Relief) administer into each nostril 2 sprays intranasal DAILY 16 grams 0RF loratadine 10 mg PO DAILY 90 tabs 0RF azithromycin For 250 mg dose pack: take 500 mg today (day 1), then 250 mg for 4 days (days 2-5) PO 6 tabs 0RF
[2025-08-30 13:59] VITALS: BP 108/76; PULSE 67; RESP 12; TEMP 36.7; O2SAT 97
== END 2025-08-30 14:27 | disposition home or self-care (01) ==
LOC: HO.HMCFM 13:43
PROVIDERS: PCP Physician Assistant; Visit Provider Physician Assistant
DX: E11.9 Type 2 diabetes mellitus without complications (principal)

== ENCOUNTER → 2025-08-30 13:42 | Outpatient (BNVA) | payer OTHER, SELFPAY | PROVIDERS: PCP Physician Assistant; Visit Provider Physician Assistant | DX: K50.10 Crohn's disease of large intestine without complications (principal); E11.9 Type 2 diabetes mellitus without complications; B96.89 Other specified bacterial agents as the cause of diseases classified elsewhere; G47.00 Insomnia, unspecified; J32.9 Chronic sinusitis, unspecified | CPT/HCPCS: 83036 ==